=== PATIENT | male | born 1980 | race Caucasian/White ===

== ENCOUNTER 2016-07-09 08:46 | Inpatient (IN) | payer BC ==
[2016-07-09] VITALS (28 sets, daily range): BP systolic 119–153; BP diastolic 66–93; PULSE 79–114; RESP 12–30; TEMP 97.8–98.8; O2SAT 86–100
[~2016-07-09] VITALS: Ht 190.5 cm; Wt 88.1 kg
[~2016-07-09 08:46] MED LIST: ASAC800T PO; BACT800T5 PO; CEPH-460 PO; TRAM50TA PO
[2016-07-09 09:10] LABS: MEAN CORPUSCULAR HGB CONC 27.6 % (32.0-36.0)
[2016-07-09] MEDS ORDERED: SODIUM CHLORIDE 0.9% FLUSH 5 ML FLUSH IVF PRN (09:15)
[2016-07-09] MEDS ORDERED: RESP: ALBUTEROL 2.5 MG/IPRATROPIUM 0.5 MG NEB (SCH) NEB ONE (09:15)
[2016-07-09] MEDS ORDERED: methylPREDNISolone SOD SUCC 125 MG/2 ML VIAL IV PUSH ONE (09:15)
[2016-07-09] MEDS ORDERED: SODIUM CHLORID 0.9% 500 ML INJ 500 ML IV ONE (09:15)
--- NOTE | 2016-07-09 09:17 | PD ---
HPI Chief Complaint: Chest Pain Time Seen by Provider: 09:04 Travel History International Travel<30 days: No Contact w/Intl Traveler<30days: No Traveled to known affect area: No History of Present Illness HPI Patient is a 36-year-old male who presents to emergency room with complaints of chest pain. Patient reports that for the past 2 weeks, he has had increased chest congestion and pains to his chest. Patient reports that he has been having a sharp and stabbing pains to his substernal chest. Patient reports that he has not been coughing, denies any recent illness. Reports that when he takes a deep breath, reports that he feels as if he cannot take a deep breath, reports increased pain with this. Patient denies any recent travels or trips. Patient denies history of pulmonary embolism or DVT in the past. Patient with no family history of clotting disorders. Patient reports that he is a past smoker, reports that he smokes one pack per day for many years and quit smoking last year. Reports that he did see his primary care doctor last week and was started on a steroid taper, reports that he has been taking the steroids with minimal relief of symptoms. Patient reports that he feels persistently short of breath at this time reports that" hurts for me take a deep breath." Patient with no fevers or chills. Patient with no cough, positive for congestion. Patient with no nausea or vomiting or diarrhea. PFSH Past Medical History Arthritis: No Asthma: No Autoimmune Disease: No Heart Rhythm Problems: No Cancer: No Cardiovascular Problems: No High Cholesterol: No Chemotherapy: No Chest Pain: No Congestive Heart Failure: No COPD: No Cerebrovascular Accident: No Diabetes: No Diminished Hearing: No Endocrine: No Gastrointestinal Disorders: Yes (ulcerative colitis) GERD: No Genitourinary: No Hiatal Hernia: No Immune Disorder: No Implanted Vascular Access Dvce: No Kidney Stones: No Musculoskeletal: No Neurologic: No Psychiatric: No Reproductive: No Respiratory: No Migraines: No Radiation Therapy: No Renal Failure: No Seizures: No Sickle Cell Disease: No Sleep Apnea: No Thyroid Disease: No Ulcer: Yes Past Surgical History Abdominal Surgery: No AICD: No Arteriovenous Shunt: No Cardiac Surgery: No Ear Surgery: No Endocrine Surgery: No Eye Surgery: No Genitourinary Surgery: No Gynecologic Surgery: No Insulin Pump: No Joint Replacement: No Oral Surgery: No Pacemaker: No Thoracic Surgery: No Other Surgery: Yes (RIGHT ANKLE) Social History Alcohol Use: No Tobacco Use: No Substance Use: No (HISTORY OF MARIJUANA, DENIES CURRENT USE ) Allergies-Medications (Allergen,Severity, Reaction): Coded Allergies: No Known Allergies (Unverified , 07/09/16) Reported Meds & Prescriptions Reported Meds & Active Scripts Active Reported Asacol HD (Mesalamine) 800 Mg Tab 800 Mg PO BID Swallow whole. Take on an empty stomach. Review of Systems General / Constitutional: No: Fever, Chills Eyes: No: Visual changes HENT: No: Headaches Cardiovascular: No: Chest Pain or Discomfort Respiratory: Positive: Shortness of Breath, No: Cough, Wheezing Gastrointestinal: No: Nausea, Vomiting, Diarrhea, Abdominal Pain Genitourinary: No: Dysuria Musculoskeletal: No: Pain Skin: No Rash Neurologic: No: Weakness Psychiatric: No: Depression Endocrine: No: Polydipsia Hematologic/Lymphatic: No: Easy Bruising Physical Exam Narrative GENERAL: nad, nontoxic SKIN: Warm and dry. Pale appearing HEAD: Atraumatic. Normocephalic. EYES: PNo injection or drainage. ENT: No nasal bleeding or discharge. Mucous membranes pink and moist. NECK: Trachea midline. No JVD. CARDIOVASCULAR: Regular rate and rhythm. No murmur appreciated. RESPIRATORY: No accessory muscle use. Clear to auscultation. Breath sounds equal bilaterally. GASTROINTESTINAL: Abdomen soft, non-tender, nondistended. Hepatic and splenic margins not palpable. Rectal exam performed with RN at bedside: Patient with heme positive dark brown stools, no melena MUSCULOSKELETAL: No obvious deformities. No clubbing. No cyanosis. No edema. NEUROLOGICAL: Awake and alert. Motor grossly within normal limits. Normal speech. PSYCHIATRIC: Appropriate mood and affect; insight and judgment normal. Data Data Last Documented VS Vital Signs Date Time Temp Pulse Resp B/P Pulse Ox O2 Delivery O2 Flow Rate FiO2 07/09/16 11:20 16 07/09/16 11:10 85 153/86 100 Room Air 07/09/16 08:53 98.3 Orders Electrocardiogram (07/09/16 09:09) Ckmb (Isoenzyme) Profile (07/09/16 09:09) Complete Blood Count With Diff (07/09/16 09:09) Comprehensive Metabolic Panel (07/09/16 09:09) D-Dimer (07/09/16 09:09) Prothrombin Time / Inr (Pt) (07/09/16 09:09) Act Partial Throm Time (Ptt) (07/09/16 09:09) Troponin I (07/09/16 09:09) Chest, Single Ap (07/09/16 09:09) Ecg Monitoring (07/09/16 09:09) Iv Access Insert/Monitor (07/09/16 09:09) Oximetry (07/09/16 09:09) Sodium Chloride 0.9% Flush (Ns Flush) (07/09/16 09:15) Sodium Chlorid 0.9% 500 Ml Inj (Ns 500 M (07/09/16 09:15) Thyroid Stimulating Hormone (07/09/16 09:09) Methylprednisolone So Succ Inj (Solumedr (07/09/16 09:15) Albuterol-Ipratropium Neb (Duoneb Neb) (07/09/16 09:15) Type And Screen (07/09/16 09:34) Red Blood Cells (Rbc) (07/09/16 09:34) Blood Product Administration .UPON TRANSFUSION (07/09/16 09:34) Sodium Chlor 0.9% 250 Ml Inj (Ns 250 Ml (07/09/16 09:45) CKMB (07/09/16 09:10) CKMB% (07/09/16 09:10) Ct Pulmonary Angiogram (07/09/16 10:13) Iohexol 350 Inj (Omnipaque 350 Inj) (07/09/16 11:00) Morphine Inj (Morphine Inj) (07/09/16 11:15) Echo 2d Comp W/Dopp(Routine) (07/09/16 ) Consult Cardiology (07/09/16 ) Admit Order (Ed Use Only) (07/09/16 11:49) Labs Laboratory Tests Test 07/09/16 07/09/16 09:10 09:27 White Blood Count 14.5 TH/MM3 Red Blood Count 3.80 MIL/MM3 Hemoglobin 6.0 GM/DL Hematocrit 21.0 % Mean Corpuscular Volume 56.1 FL Mean Corpuscular Hemoglobin 15.5 PG Mean Corpuscular Hemoglobin 27.6 % Concent Red Cell Distribution Width 18.8 % Platelet Count 511 TH/MM3 Mean Platelet Volume 7.5 FL Neutrophils (%) (Auto) 87.9 % Lymphocytes (%) (Auto) 5.2 % Monocytes (%) (Auto) 5.6 % Eosinophils (%) (Auto) 0.5 % Basophils (%) (Auto) 0.8 % Neutrophils # (Auto) 12.7 TH/MM3 Lymphocytes # (Auto) 0.8 TH/MM3 Monocytes # (Auto) 0.8 TH/MM3 Eosinophils # (Auto) 0.1 TH/MM3 Basophils # (Auto) 0.1 TH/MM3 CBC Comment AUTO DIFF Differential Comment AUTO DIFF CONFIRMED Target Cells 2+ Ovalocytes 1+ Keratocytes 1+ Prothrombin Time 11.4 SEC Prothromb Time International 1.0 RATIO Ratio Activated Partial 30.0 SEC Thromboplast Time D-Dimer Quantitative (PE/DVT) 1.28 MG/L FEU Sodium Level 137 MEQ/L Potassium Level 3.6 MEQ/L Chloride Level 99 MEQ/L Carbon Dioxide Level 26.6 MEQ/L Anion Gap 11 MEQ/L Blood Urea Nitrogen 7 MG/DL Creatinine 0.69 MG/DL Estimat Glomerular Filtration 130 ML/MIN Rate Random Glucose 107 MG/DL Calcium Level 7.4 MG/DL Protein Corrected Calcium 7.5 MG/DL Total Bilirubin 0.4 MG/DL Aspartate Amino Transf 12 U/L (AST/SGOT) Alanine Aminotransferase 21 U/L (ALT/SGPT) Alkaline Phosphatase 81 U/L Total Creatine Kinase 150 U/L Creatine Kinase MB 1.7 NG/ML Troponin I LESS THAN 0.02 NG/ML Total Protein 7.0 GM/DL Albumin 2.6 GM/DL Thyroid Stimulating Hormone 0.791 uIU/ML 3rd Gen Blood Type B POSITIVE Antibody Screen NEGATIVE Crossmatch Leukocyte-Reduced Red Blood Cells Blood Bank Comment MDM Medical Decision Making Medical Screen Exam Complete: Yes Emergency Medical Condition: Yes Interpretation(s) EKG at 0918: NSR at 81bpm, qt/qtc: 376/412, t wave inversion V1-V2, no acute st seg changes Vital Signs Date Time Temp Pulse Resp B/P Pulse Ox O2 Delivery O2 Flow Rate FiO2 07/09/16 08:53 98.3 88 20 126/75 100 Differential Diagnosis Costochondritis, PE, pneumonia, ACS, arrhythmia, electrolyte abnormality, COPD exacerbation Narrative Course Patient is a 36-year-old male who presents to emergency room with complaints of sharp stabbing chest pain as well as shortness of breath. Symptoms began 2 weeks ago and has persisted despite being on steroids for the past week. Patient overall nontoxic on initial evaluation. Cardiac monitoring ordered, obtain CBC, BMP, EKG and x-ray of chest. Patient low risk for PE though this is in the differential, dimer ordered to r/o possible PE given that he has no risk factors for PE. Will treat patient symptomatically and will reevaluate patient. Patient's hemoglobin is 6.0. Patient with history of ulcerative colitis, he has follow-up with Dr. Hammond with GI. Patient reports no abdominal pain, reports that he has had couple episodes of diarrhea but has not had an ulcerative colitis attack. Patient reports that he has had to have a blood transfusion 2 years ago secondary to his ulcerative colitis. A rectal exam was performed, patient is heme positive from below with dark brown stools. Patient most likely anemic from GI bleed. Patient agreeable to blood transfusion at this time as he is symptomatic anemia Reviewed positive dimer with pt - understands need for ct chest to evaluate for possible pe - patient agreeable to CAT scan Review CAT scan result with radiologist, patient with significant pericardial effusion, concern for cardiac tamponde with patient's symptoms of chest pain/ sob. Patient with no clinical signs of cardiac tamponade at this time. No JVD , pt is not hypotensive. patient does not have electrical alternans, vss at this time. case reviewed with Dr. Rocha - will talk to sail repair person reading interventionist and decide whether patient can be admitted to this hospital vs [facility] case reviewed with Dr Hernadez, will see patient in consults and is agreeable to reading cardiac echo call made to IR to see if they perform pericardiocentesis at [facility] if this is clinically necessary or if patient develops pericardial tamponade. pt can be admitted to [facility] Critical Care Narrative Aggregate critical care time was 45 minutes. Time to perform other separately billable procedures was not included in the critical care time. My time did not include minutes spent treating any other patients simultaneously or on activities that did not directly contribute to the patient's treatment. The services I provided to this patient were to treat and/or prevent clinically significant deterioration that could result in: , decompensation, deterioration I provided critical care services requiring my management, as noted below: Chart data review, documentation time, medication orders and management, vital sign assessments/reviewing monitor data, ordering and reviewing lab tests, ordering and interpreting/reviewing x-rays and diagnostic studies, care of the patient and discussion of the patient with the admitting physicians. Diagnosis Primary Impression: Symptomatic anemia Additional Impression: Chest pain Qualified Code: R07.1 - Chest pain on breathing Admitting Information Admitting Physician Requests: Admit Penelope Bales DO Jul 09, 2016 09:17
[2016-07-09 09:22] LABS: AUTOMATED NEUTROPHIL # 12.7 TH/MM3 (1.8-7.7); BASOPHIL # 0.1 TH/MM3 (0-0.2); BASOPHIL % 0.8 % (0.0-2.0); EOSINOPHIL # 0.1 TH/MM3 (0-0.4); EOSINOPHIL % 0.5 % (0.0-4.0); LYMPH % 5.2 % (9.0-44.0); LYMPHOCYTE # 0.8 TH/MM3 (1.0-4.8); MEAN CELL VOLUME 56.1 FL (80.0-100.0); MEAN CORPUSCULAR HEMOGLOBIN 15.5 PG (27.0-34.0); MONO % 5.6 % (0.0-8.0); NEUT % 87.9 % (16.0-70.0); PLATELET COUNT 511 TH/MM3 (150-450); RED CELL DISTRIBUTION WIDTH 18.8 % (11.6-17.2); WHITE BLOOD COUNT 14.5 TH/MM3 (4.0-11.0)
[2016-07-09 09:24] LABS: HEMO FLAGS AUTO DIFF
[2016-07-09 09:32] LABS: PROTHROMBIN TIME - PATIENT 11.4 SEC (9.8-11.6)
--- NOTE | 2016-07-09 09:38 | RADHPO ---
EXAM DATE/TIME: 07/09/2016 09:28 [facility] COMPARISON: No previous studies available for comparison. INDICATIONS : Chest pain. Short of breath. MEDICAL HISTORY : Ulcerative colitis. Ulcers. Irritable bowel syndrome. SURGICAL HISTORY : Right ankle. ENCOUNTER: Initial ACUITY: 2 weeks PAIN SCORE: 7/10 LOCATION: substernal chest. FINDINGS: Single AP view of the chest. The lungs are clear. Mild cardiac silhouette enlargement. No evidence of pleural effusion or pneumothorax. CONCLUSION: Enlarged cardiac silhouette. No other acute cardiopulmonary disease identified. Marcin Niño MD on July 09, 2016 at 9:34 Board Certified Radiologist. This report was verified electronically.
[2016-07-09] MEDS ORDERED: SODIUM CHLOR 0.9% 250 ML INJ 250 ML IV ONE (09:45)
[2016-07-09 09:46] LABS: KERATOCYTES 1+ (NORMAL); OVALOCYTES 1+ (NORMAL); SCAN/DIFF AUTO DIFF CONFIRMED; TARGET CELLS 2+ (NORMAL)
[2016-07-09 10:05] LABS: ALKALINE PHOSPHATASE 81 U/L (45-117); ALT (GPT) 21 U/L (12-78); ANION GAP 11 MEQ/L (5-15); AST (GOT) 12 U/L (15-37); BICARBONATE 26.6 MEQ/L (21.0-32.0); BLOOD UREA NITROGEN 7 MG/DL (7-18); CALCIUM-PROTEIN CORRECTED 7.5 MG/DL (8.5-10.1); CHLORIDE 99 MEQ/L (98-107); CREATINE KINASE 150 U/L (39-308); GLOMERULAR FILTRATION RATE 130 ML/MIN (>89); POTASSIUM 3.6 MEQ/L (3.5-5.1); SODIUM (NA) 137 MEQ/L (136-145); TOTAL BILIRUBIN ADULT 0.4 MG/DL (0.2-1.0)
[2016-07-09 10:20] LABS: CKMB 1.7 NG/ML (0.5-3.6)
[2016-07-09] MEDS ORDERED: IOHEXOL 350 MG/ML 10 ML VIAL (for RAD DIAG) IV ONE (11:00)
[2016-07-09] MEDS ORDERED: MORPHINE SULFATE 4 MG/ML INJ IV PUSH ONE (11:15)
--- NOTE | 2016-07-09 11:17 | RADHPO ---
EXAM DATE/TIME: 07/09/2016 10:50 [facility] COMPARISON: No previous studies available for comparison. INDICATIONS : Chest pain x 2 weeks. Short of breath. IV CONTRAST: 75 cc Omnipaque 350 (iohexol) IV RADIATION DOSE: 14.58 CTDIvol (mGy) MEDICAL HISTORY : Irritiable bowel syndrome. SURGICAL HISTORY : None. ENCOUNTER: Initial ACUITY: 2 weeks PAIN SCALE: 5/10 LOCATION: chest TECHNIQUE: Volumetric scanning of the chest was performed using a pulmonary embolism protocol MIP images were re constructed. Using automated exposure control and adjustment of the mA and/or kV according to patien t size, radiation dose was kept as low as reasonably achievable to obtain optimal diagnostic quality images. FINDINGS: PULMONARY ARTERIES: No filling defects are seen in the pulmonary arteries through the segmental level. LUNGS: There is no consolidation or pneumothorax . Minimal streaky airspace disease is identified left base. No concerning pulmonary nodule is visualized. PLEURAE: There is no pleural thickening or pleural effusion. MEDIASTINUM: A moderate amount of pericardial fluid is identified. Heart size is otherwise normal. There is no isai dence of focal mass or lymphadenopathy. MUSCULOSKELETAL: Within normal limits for patient age. MISCELLANEOUS: The visualized upper abdominal organs demonstrate no acute abnormality. CONCLUSION: Moderate-sized pericardial effusion. Minimal left basal atelectasis. No evidence of acute pulmonary embolism. Verbal report given to treating physician in the emergency department. Kody Handy MD on July 09, 2016 at 11:09 Board Certified Radiologist. This report was verified electronically.
[2016-07-09] MEDS ORDERED: MORPHINE SULFATE 8 MG/ML INJ IV PUSH ONE (12:00)
[2016-07-09] MEDS ORDERED: BISACODYL 10 MG SUPP PR PRN (12:30)
[2016-07-09] MEDS ORDERED: ACETAMINOPHEN 325 MG TAB PO PRN (12:30)
[2016-07-09] MEDS ORDERED: NALOXONE HCL 0.4 MG/ML AMP IV PRN (12:30)
[2016-07-09] MEDS ORDERED: ONDANSETRON HCL 4 MG/2 ML VIAL IVP PRN (12:30)
[2016-07-09] MEDS ORDERED: RESP: ALBUTEROL 2.5 MG/IPRATROPIUM 0.5 MG NEB (PRN) NEB (12:30)
[2016-07-09] MEDS ORDERED: SENNOSIDES 8.6 MG TAB PO PRN (12:30)
--- NOTE | 2016-07-09 13:05 | EC ---
Study Study Date:07/09/2016 STUDY CONCLUSIONS SUMMARY - Left ventricle: The cavity size was normal. Wall thickness was normal. Systolic function was normal. The estimated ejection fraction was in the range of 55% to 60%. Wall motion was normal; there were no regional wall motion abnormalities. - Aortic valve: Valve area: 2.82cm^2 (Vmax). - Mitral valve: Mild regurgitation. - Tricuspid valve: Moderate regurgitation. - Pulmonary arteries: PA peak pressure: 32mm Hg (S). If LV function is below 40, please consider prescribing an ACEI or ARB or document rationale for non-use. PROCEDURE DATA STUDY STATUS: Elective. Procedure: Transthoracic echocardiography. Image quality was good. Scanning was performed from the parasternal, apical, and subcostal acoustic windows. Study completion: The patient tolerated the procedure well. Transthoracic echocardiography. M-mode, complete 2D, complete spectral Doppler, and color Doppler. Height: Height: 75in. Weight: Weight: 202.6lb. Body mass index: BMI: 25.4kg/m^2. Body surface area: BSA: 2.21m^2. Patient status: Inpatient. CARDIAC ANATOMY LEFT VENTRICLE: The cavity size was normal. Wall thickness was normal. Systolic function was normal. The estimated ejection fraction was in the range of 55% to 60%. Wall motion was normal; there were no regional wall motion abnormalities. AORTIC VALVE: Trileaflet; normal thickness leaflets. Doppler: Transvalvular velocity was within the normal range. There was no stenosis. No regurgitation. Valve area: 2.82cm^2 (Vmax). Indexed valve area: 1.28cm^2/m^2 (Vmax). AORTA: Aortic root: The aortic root was normal in size. MITRAL VALVE: Structurally normal valve. Doppler: Transvalvular velocity was within the normal range. There was no evidence for stenosis. Mild regurgitation. Peak gradient: 3mm Hg (D). LEFT ATRIUM: The atrium was normal in size. RIGHT VENTRICLE: The cavity size was normal. Wall thickness was normal. PULMONIC VALVE: Doppler: Transvalvular velocity was within the normal range. There was no evidence for stenosis. No regurgitation. TRICUSPID VALVE: Structurally normal valve. Doppler: Transvalvular velocity was within the normal range. Moderate regurgitation. PULMONARY ARTERY: The main pulmonary artery was normal-sized. Systolic pressure was within the normal range. RIGHT ATRIUM: The atrium was normal in size. PERICARDIUM: There is a moderate size pericardial effusion that is 1.5-2.0 cm. There is some respiratory variation, that is felt to be less then that seen with tamponade. SYSTEMIC VEINS: Inferior vena cava: The vessel was normal in size. Patient weight: 202.6lb _Ejection fraction:_ 65-75% _Fractional shortening:_ 32% up to 5Kg 5-11.5Kg 11.6-22.9Kg 23-45Kg 45-57Kg Aortic Root 7-13 <17 13-22 17-27 17-27 LA diam 6-13 <23 24-38 33-47 37-40 RVID 10-17 7-15 7-15 7-18 8-17 LVIDd 12-22 <32 24-38 33-47 37-40 LVPW 2-4 3-6 5-7 6-8 7-8 IVS 2-4 3-6 5-7 6-8 7-8 BASIC MEASUREMENTS ADULT NORMAL Left ventricle LV internal dimension, ED, chordal *63.8 mm 43-52 level, PLAX LV internal dimension, ES, chordal *46.6 mm 23-38 level, PLAX Fractional shortening, chordal level, *27 % >29 PLAX LV posterior wall thickness, ED 8.6 mm IVS/LVPW ratio, ED 1.13 <1.3 Ventricular septum Septal thickness, ED 9.75 mm Aortic valve Leaflet separation *28 mm 15-26 BASIC MEASUREMENTS ADULT NORMAL Aortic valve Leaflet separation *28 mm 15-26 Aorta Root diameter, ED 32 mm 20-37 Left atrium Anterior-posterior dimension, ES 40 mm 19-40 Anterior-posterior dimension index, ES 1.81 cm/m^2 <2.2 LA/aortic root ratio 1.25 DOPPLER MEASUREMENTS ADULT NORMAL Main pulmonary artery Pressure, S *32 mm Hg =30 Pressure, ED 13 mm Hg Aortic valve Peak velocity, S 158 cm/s Valve area, Vmax 2.82 cm^2 Valve area index, Vmax 1.28 cm^2/m^2 Mitral valve Peak E-wave velocity 86.4 cm/s Peak A-wave velocity 61.7 cm/s Deceleration time 158 ms 150-230 Peak gradient, D 3 mm Hg Peak E/A ratio 1.4 Maximal regurgitant velocity 323 cm/s Tricuspid valve Regurgitant peak velocity 268 cm/s Peak RV-RA gradient, S 29 mm Hg Maximal regurgitant velocity 268 cm/s Systemic veins Estimated CVP 10 mm Hg Right ventricle RV pressure, S *39 mm Hg <30 Pulmonic valve Peak velocity, S 132 cm/s Regurgitant velocity, ED 81.4 cm/s LEGEND: Mean values are shown as u=mean value. Asterisk (*) ron values outside specified normal range. Prepared and signed by Renetta Pat [id number]
--- NOTE | 2016-07-09 14:38 | HHI.HP ---
[facility] Service [place] Hospitalists Primary Care Physician Philip Shearer MD Admission Diagnosis symptomatic anemia, moderate sized pericardial effusion Diagnoses: (1) Chest pain Diagnosis: Principal (2) Pericardial effusion Diagnosis: Principal (3) Symptomatic anemia Diagnosis: Principal (4) Ulcerative colitis Diagnosis: Secondary Chief Complaint: Chest pain, shortness of breath Travel History International Travel<30 Days: No Contact w/Intl Traveler <30 Da: No Traveled to Known Affected Are: No History of Present Illness 36 year-old male with known history of ulcerative colitis, history of GI bleed requiring transfusions who presented to hospital because of chest pain or shortness of breath. Patient states that his pain and shortness of breath started 2 weeks ago and he went to his primary medical doctor's office and told that he had inflammation around his chest and was prescribed steroids. Patient states that that shortness of breath and pain did improve up rarely. However yesterday the pain came back severe with significant shortness of breath so he came to the hospital for evaluation. Patient had workup done in the emergency department and CT scan indicated pericardial effusion. ER physicians only had stat echocardiogram performed which also indicated moderate sized pericardial effusion. They contacted billing collections specialist who recommended pericardial effusion. ER physician then contacted hospitalist for admission so the procedures could be performed. Subsequently patient did have anemia. He has had history of anemia from ulcerative colitis. He has not taken any of his medications for at least 2 months. It has been approximate 16 months since his last transfusion. Patient has been admitted, waiting radiology for pericardial centesis Review of Systems Constitutional: DENIES: Diaphoretic episodes, Fatigue, Fever, Weight gain, Weight loss, Chills, Dizziness, Change in appetite, Night Sweats Eyes: DENIES: Blurred vision, Diplopia, Eye inflammation, Eye pain, Vision loss , Double Vision Ears, nose, mouth, throat: DENIES: Vertigo, Nasal discharge, Throat pain, Ear Pain, Running Nose, Sinus Pain Respiratory: COMPLAINS OF: Shortness of breath, DENIES: Apneas, Cough, Snoring , Wheezing, Hemoptysis, Sputum production Cardiovascular: COMPLAINS OF: Chest pain, DENIES: Palpitations, Syncope, Dyspnea on Exertion, Lower Extremity Edema, Orthopnea Gastrointestinal: DENIES: Abdominal pain, Black stools, Bloody stools, Constipation, Diarrhea, Nausea, Vomiting, Difficulty Swallowing, Anorexia Neurologic: DENIES: Abnormal gait, Headache, Localized weakness, Paresthesias, Seizures, Speech Problems, Tremor, Poor Balance Past Family Social History Past Medical History Ulcerative colitis Past Surgical History Colonoscopies Right ankle surgery Reported Medications No medications presently Allergies: Coded Allergies: No Known Allergies (Unverified , 07/09/16) Family History Reviewed is significant for father having malignant skin cancer Social History Patient quit smoking February 2016, prior to that he smoked up to a pack a cigarettes a day since he was 16 years old. Patient denies any alcohol or illicit drug Physical Exam Vital Signs Vital Signs Date Time Temp Pulse Resp B/P Pulse Ox O2 Delivery O2 Flow Rate FiO2 07/09/16 13:00 98.6 79 24 148/76 97 07/09/16 12:05 84 16 142/75 98 Room Air 07/09/16 12:05 14 07/09/16 11:20 16 07/09/16 11:10 85 18 153/86 100 Room Air 07/09/16 09:46 84 20 142/83 97 07/09/16 09:15 95 07/09/16 08:53 98.3 88 20 126/75 100 Physical Exam GENERAL: Well-developed, well-nourished, in no acute distress. alert and orientated HEENT: Head is normocephalic without any lesions or masses noted. Facial features are symmetric. Eyes: Pupils equal round reactive to light. Extraocular muscles are intact. Conjunctivae were clear. Oropharyngeal: Pharynx without any erythema edema. Tongue is midline without deviation. Buccal mucosa is moist without any masses or lesions NECK: Supple without any masses. Trachea midline no deviation. No JVD, no bruits are appreciated CARDIAC: Regular rhythm, regular rate. S1/S2 are heard. No murmurs gallops. Rub appreciated LUNGS: Clear to auscultation bilaterally. No wheeze, rhonchi or rales. No use of accessory muscles on inspiration or expiration. ABDOMEN: Soft, nontender. Nondistended. Bowel sounds heard in all 4 quadrants. No organomegaly or masses. Negative rebound, negative guarding EXTREMITIES: No edema, pulses are equal bilaterally. No cyanosis or clubbing NEUROLOGY: Mood and affect appear appropriate. Cranial nerves II through XII grossly intact. Muscle strength 5/5 in upper and lower extremities bilaterally. Deep tendon reflexes are 2+ in upper and lower extremities bilaterally. Laboratory Laboratory Tests Test 07/09/16 07/09/16 09:10 09:27 White Blood Count 14.5 Red Blood Count 3.80 Hemoglobin 6.0 Hematocrit 21.0 Mean Corpuscular Volume 56.1 Mean Corpuscular Hemoglobin 15.5 Mean Corpuscular Hemoglobin 27.6 Concent Red Cell Distribution Width 18.8 Platelet Count 511 Mean Platelet Volume 7.5 Neutrophils (%) (Auto) 87.9 Lymphocytes (%) (Auto) 5.2 Monocytes (%) (Auto) 5.6 Eosinophils (%) (Auto) 0.5 Basophils (%) (Auto) 0.8 Neutrophils # (Auto) 12.7 Lymphocytes # (Auto) 0.8 Monocytes # (Auto) 0.8 Eosinophils # (Auto) 0.1 Basophils # (Auto) 0.1 CBC Comment AUTO DIFF Differential Comment AUTO DIFF CONFIRMED Target Cells 2+ Ovalocytes 1+ Keratocytes 1+ Prothrombin Time 11.4 Prothromb Time International 1.0 Ratio Activated Partial 30.0 Thromboplast Time D-Dimer Quantitative (PE/DVT) 1.28 Sodium Level 137 Potassium Level 3.6 Chloride Level 99 Carbon Dioxide Level 26.6 Anion Gap 11 Blood Urea Nitrogen 7 Creatinine 0.69 Estimat Glomerular Filtration 130 Rate Random Glucose 107 Calcium Level 7.4 Protein Corrected Calcium 7.5 Total Bilirubin 0.4 Aspartate Amino Transf 12 (AST/SGOT) Alanine Aminotransferase 21 (ALT/SGPT) Alkaline Phosphatase 81 Total Creatine Kinase 150 Creatine Kinase MB 1.7 Troponin I LESS THAN 0.02 Total Protein 7.0 Albumin 2.6 Thyroid Stimulating Hormone 0.791 3rd Gen Blood Type B POSITIVE Antibody Screen NEGATIVE Crossmatch Leukocyte-Reduced Red Blood Cells Blood Bank Comment Result Diagram: 07/09/16 0910 07/09/[address] Angiography 07/09/16 1013 Signed Impressions: Service Date/Time: Saturday, July 09, 2016 10:50 - CONCLUSION: Moderate- sized pericardial effusion. Minimal left basal atelectasis. No evidence of acute pulmonary embolism. Verbal report given to treating physician in the emergency department. Kody Handy MD Chest X-Ray 07/09/16 0909 Signed Impressions: Service Date/Time: Saturday, July 09, 2016 09:28 - CONCLUSION: Enlarged cardiac silhouette. No other acute cardiopulmonary disease identified. Marcin Niño MD Assessment and Plan Assessment and Plan Pericardial effusion with presenting chest pain, shortness of breath, on exam pericardial friction rub CT scan does indicate moderate size pericardial effusion, echocardiogram also indicates moderate size pericardial effusion Radiology consulted for pericardial centesis Studies have been requested Continue pain control Anemia with history of ulcerative colitis Transfuse to maintain hemoglobin greater than 8.0 Dr. Hammond consulted for further recommendations DVT prevention Sequential compression devices, avoid chemical prophylaxis secondary to acute anemia Written by Mahendra Ruiz PA-C, acting as scribe for Dr. Rocha on 07/09/16 at 1410. The documentation accurately reflects the work and decisions performed face-to- face by Dr. Rocha on 07/09/16 at 1410. Physician Certification 2 Midnight Certification Type: Admission for Inpatient Services Order for Inpatient Services The services are ordered in accordance with Medicare regulations or non- Medicare payer requirements, as applicable. In the case of services not specified as inpatient-only, they are appropriately provided as inpatient services in accordance with the 2-midnight benchmark. Estimated LOS (days): 4 4 days is the estimated time the patient will need to remain in the hospital, assuming treatment plan goals are met and no additional complications. Post-Hospital Plan: Home Problem Qualifiers (1) Chest pain: Qualified Code: R07.1 - Chest pain on breathing (2) Ulcerative colitis: Qualified Code: K51.919 - Ulcerative colitis with complication, unspecified location Mahendra Ruiz Jul 09, 2016 14:37 Candi Rocha MD Jul 10, 2016 12:46
[2016-07-09] MEDS ORDERED: fentaNYL CITRATE 250 MCG/5 ML AMP IV ONE (15:15)
[2016-07-09] MEDS ORDERED: LORazepam 2 MG/ML VIAL IV ONE (15:15)
[2016-07-09 15:19] LABS: CREATINE KINASE 97 U/L (39-308)
--- NOTE | 2016-07-09 16:03 | PD.RAD ---
Post Procedure Progress Note Pre Procedure Diagnosis: (1) Pericardial effusion Post Procedure Diagnosis: (1) Pericardial effusion Procedure Date: Jul 09, 2016 Supervising Radiologist: Tre Resendiz Proceduralist/Assist: Other Anesthesia: Analgesia Plan of Activity Patient to Unit: Nursing Unit Patient Condition: Good See PACS Report for procedural detail/treatment Drainage Procedure Procedure 1 Imaging Guidance: CT Procedure Type: Abscess Drainage (pericardium) Procedure: Placement Drainage: Suction Fluid Description: Bloody Tre Resendiz MD Jul 09, 2016 16:03
[2016-07-09] MEDS ORDERED: LIDOCAINE 1%/EPINEPHrine 1:100,000 SOLN 30 ML VIAL OTHER ONE (16:44)
[2016-07-09 17:03] LABS: PERICARDIAL FLUID SP GRAVITY 1.034
[2016-07-09 17:12] LABS: PERICARDIAL LYMPHS 3 %; PERICARDIAL POLYS(SEGS) 97 %; PERICARDIAL RBC 49000 /MM3 (0-0); PERICARDIAL WBC 24500 /MM3 (0-10)
--- NOTE | 2016-07-09 17:46 | RADHPO ---
EXAM DATE/TIME: 07/09/2016 15:23 [facility] COMPARISON: No previous studies available for comparison. INDICATIONS : Pericardial effusion. SEDATION TIME: minutes MEDICATION(S): 1.) 4 mg lorazepam (Ativan) IV 2.) 250 mcg fentanyl (Sublimaze) IV DEVICE(S): 1.) 8 Fr Skater 2.) micropuncture introducer 3.) Recio FLUID: Total volume of 250 cc of clear, red fluid was removed. Fluid was sent for laboratory ordered studies. MEDICAL HISTORY : Inflammatory bowel disease. SURGICAL HISTORY : None. ENCOUNTER: Initial ACUITY: 2 weeks PAIN SCORE: 6/10 LOCATION: chest PROCEDURE: 2.) EKG and oximetry remained stable throughout the procedure. PROCEDURE : CT guided pericardiocentesis. The risks, benefits and alternatives to the procedure were explained and verbal and written consent w as obtained. The site was prepped in sterile fashion. Full sterile technique was used, including ca p, mask, sterile gloves and gown and a large sterile sheet. Hand hygiene and 2% chlorhexidine and/or betadine/alcohol prep was utilized per protocol for cutaneous antisepsis. The skin and subcutaneous tissues were infiltrated with local anesthetic solution. A micropuncture set was used to gain access and serial dilatation was performed for placement of the prescribed catheter. 250 cc of bloody fluid was removed and specimen sent the lab for evaluation. Pos t procedure images demonstrated no significant residual effusion. CONCLUSION: Uncomplicated CT-guided pericardiocentesis as above. Tre Resendiz MD on July 09, 2016 at 17:43 Board Certified Radiologist. This report was verified electronically.
[2016-07-09] MEDS ORDERED: ACETAMINOPHEN/HYDROcodone 325 MG/5 MG TAB PO PRN (18:45)
[2016-07-09] MEDS: ACETAMINOPHEN/HYDROcodone 325 MG/5 MG TAB PO PRN (20:14)
[2016-07-09] MEDS: SODIUM CHLORIDE 0.9% FLUSH 5 ML FLUSH FLUSH SCH (20:14)
--- NOTE | 2016-07-09 20:27 | MB ---
cc: ECHO WARE MD DATE OF CONSULTATION 07/09/16 REASON FOR CONSULTATION Pericardial effusion. HISTORY OF PRESENT ILLNESS Mr. Britt is a 36-year-old man you does have a history of ulcerative colitis. He reports that approximately two weeks ago he was seen by his primary care doctor for shortness of breath and some chest discomfort. He was given some steroids. He reports that over the next several days things did begin to improve. Yesterday, however, the pain came back and was quite severe so he came to the emergency room for further evaluation. Subsequent CT did reveal a pericardial effusion and cardiology was subsequently consulted. PAST MEDICAL HISTORY 1. Ulcerative colitis 2. Right ankle surgery. FAMILY HISTORY Significant for skin cancer. SOCIAL HISTORY The patient is a former smoker. REVIEW OF SYSTEMS Except as mentioned in the HPI all 12 systems are negative. MEDICATIONS Outpatient currently include the asacol. PHYSICAL EXAMINATION VITAL SIGNS: 99, 19, 137/72. GENERAL: He is a well-appearing man in no apparent distress. NECK: Free from jugular venous distention. LUNGS: Bilaterally clear to auscultation. CARDIOVASCULAR: She has a normal S1 and S2. I did not appreciated any murmurs, rubs or gallops. The pericardial drain is still in place. ABDOMEN: Soft. EXTREMITIES: Free of edema. LABORATORY FINDINGS Significant for a hemoglobin of 6. Serial troponins are less than 0.02/less than 0.02. CARDIOLOGY STUDIES Echocardiogram shows a moderate size pericardial effusion with normal LV function. There was moderate tricuspid regurgitation. IMAGING STUDIES CT angiogram of the chest showed a moderate-sized pericardial effusion and minimal basilar atelectasis. There was no evidence for PE. Subsequent CT guided pericardiocentesis, [place] [address] [place] [address]. IMPRESSION 1. Pericardial effusion - the patient has had significant pericardial effusion that has been tapped and drained. The drain is still in place with about 100 mL in the collection reservoir. He is feeling symptomatically much better. I do agree with leaving the drain in place. Cultures are pending. In the interim, I will start him on colchicine which is the standard therapy. In light of his ulcerative colitis, I am reluctant to add any NSAIDS. Additionally, I would avoid steroids if at all possible. 2. Ulcerative colitis - this is being managed by the primary team. Anne Waterman /7:45 PM /8:09 PM
[2016-07-09] MEDS: COLCHICINE 0.6 MG TAB PO SCH (20:30)
[2016-07-09] MEDS: MESALAMINE HD 800 MG DELAYED RELEASE TAB PO SCH (20:31)
[2016-07-09 21:56] LABS: CREATINE KINASE 95 U/L (39-308)
[2016-07-09] MEDS: HYDROmorphone HCL PF 1 MG/ML VIAL IV PUSH PRN (22:22)
--- NOTE | 2016-07-09 22:57 | HHI.PR ---
Subjective Remarks C/R Surg events reviewed 36 yo male with mod /severe colitis - resistant to medical Rx, but not very compliant recently tried on Humira - ? length of treatment now c/o SOB - low Hgb, pericardial effusion Objective - Vital Signs Date Time Temp Pulse Resp B/P Pulse Ox O2 Delivery O2 Flow Rate FiO2 07/09/16 17:46 98 19 137/72 07/09/16 17:10 86 07/09/16 16:50 98.8 07/09/16 16:30 21 07/09/16 12:05 Room Air Result Diagram: 07/09/16 0910 07/09/16 0910 A/P Assessment and Plan Imp: Acute colitis - now pericardial effusion check collagen vascular work-up incr asacol trial of uceris - not on formulary transfuse Topher Hammond MD Jul 09, 2016 22:57
[2016-07-10] VITALS (18 sets, daily range): BP systolic 129–141; BP diastolic 63–83; PULSE 66–94; RESP 10–28; TEMP 97.7–98.3; O2SAT 97–99
[2016-07-10] MEDS: ACETAMINOPHEN/HYDROcodone 325 MG/5 MG TAB PO PRN ×4 (02:15→19:28)
[2016-07-10 04:10] LABS: HEMATOCRIT 24.9 % (39.0-51.0)
[2016-07-10 04:11] LABS: REVIEW FLAG FINAL
[2016-07-10] MEDS: MESALAMINE HD 800 MG DELAYED RELEASE TAB PO SCH ×3 (05:48→19:27)
[2016-07-10] MEDS: HYDROmorphone HCL PF 1 MG/ML VIAL IV PUSH PRN ×4 (05:49→20:59)
[2016-07-10 06:17] LABS: POTASSIUM 4.1 MEQ/L (3.5-5.1)
[2016-07-10 06:21] LABS: BICARBONATE 28.8 MEQ/L (21.0-32.0)
[2016-07-10] MEDS ORDERED: DIATRIZOATE MEGLUM/DIATRIZOATE SOD 9 ML CUP PO ONE (09:30)
--- NOTE | 2016-07-10 10:02 | HHI.PR ---
Subjective Remarks Patient seen and examined today with Dr. Rocha. Patient states that the pain has improved. Patient still has drain in place with minimal output this morning. Nursing staff just drain the back, documentation indicates that patient has had 350 mL's of output Objective Vitals Vital Signs Date Time Temp Pulse Resp B/P Pulse Ox O2 Delivery O2 Flow Rate FiO2 07/10/16 06:00 72 07/10/16 06:00 72 10 07/10/16 05:00 82 11 07/10/16 04:00 98.0 94 19 135/68 98 07/10/16 04:00 94 07/10/16 03:00 86 12 07/10/16 02:00 84 07/10/16 02:00 84 12 07/10/16 01:00 86 11 07/10/16 00:00 98.3 92 19 129/63 97 07/10/16 00:00 92 07/09/16 23:00 92 12 07/09/16 22:00 114 30 07/09/16 22:00 114 07/09/16 21:00 102 14 07/09/16 20:00 98.6 100 18 135/81 97 07/09/16 20:00 89 07/09/16 19:46 110 28 140/73 07/09/16 19:31 88 14 132/68 07/09/16 19:16 88 17 119/68 97 07/09/16 19:00 88 17 127/66 07/09/16 17:46 98 19 137/72 07/09/16 17:45 96 19 07/09/16 17:30 108 21 148/81 07/09/16 17:15 100 24 140/81 07/09/16 17:10 110 29 151/93 86 07/09/16 17:05 94 15 141/78 97 07/09/16 17:00 96 16 147/78 96 07/09/16 16:55 96 17 145/82 95 07/09/16 16:50 98.8 100 16 145/82 92 07/09/16 16:45 97.8 100 16 142/83 96 07/09/16 16:40 98.2 102 17 152/87 95 07/09/16 16:40 98.2 100 17 150/82 96 07/09/16 16:38 104 19 152/87 95 07/09/16 16:30 100 19 95 07/09/16 16:30 96 21 07/09/16 16:23 153/83 95 07/09/16 13:00 98.6 79 24 148/76 97 07/09/16 12:05 84 16 142/75 98 Room Air 07/09/16 12:05 14 07/09/16 11:20 16 07/09/16 11:10 85 18 153/86 100 Room Air I/O 07/09/16 07/09/16 07/09/16 07/10/16 07/10/16 07/10/16 07:00 15:00 23:00 07:00 15:00 23:00 Intake Total 500 ml 859 ml 240 ml Output Total 1350 ml 300 ml Balance 500 ml -491 ml -60 ml Intake Oral 480 ml 240 ml IV Total 500 ml Packed Cells 379 ml Output Urine Total 1000 ml 300 ml Drainage Total 350 ml # Voids 2 # Bowel Movements 0 0 Result Diagram: 07/10/16 0405 07/10/16 0536 Objective Remarks GENERAL: Well-developed, well-nourished, in no acute distress. alert and orientated HEENT: Head is normocephalic without any lesions or masses noted. Facial features are symmetric. Eyes: Extraocular muscles are intact. Conjunctivae were clear. NECK: Supple without any masses. Trachea midline no deviation. No JVD, CARDIAC: Regular rhythm, regular rate. S1/S2 are heard. No murmurs gallops or rubs. Pericardial drain in place LUNGS: Clear to auscultation bilaterally. No wheeze, rhonchi or rales. No use of accessory muscles on inspiration or expiration. ABDOMEN: Soft, nontender. Nondistended. Bowel sounds heard in all 4 quadrants. No organomegaly or masses. Negative rebound, negative guarding EXTREMITIES: No edema, pulses are equal bilaterally. No cyanosis or clubbing NEUROLOGY: Mood and affect appear appropriate. Cranial nerves II through XII grossly intact. Moving all extremities, speech is clear Urinary Catheter: No Vascular Central Line Catheter: No A/P Assessment and Plan Pericardial effusion with presenting chest pain, shortness of breath, on exam pericardial friction rub CT scan does indicate moderate size pericardial effusion, echocardiogram also indicates moderate size pericardial effusion Radiology consulted for pericardial centesis, which performed with 250 cc of clear red fluid removed, drain left in place Drain output since placement 350 cc by EMR Fluid testing thus far indicates possible exudative fluid Colchicine has been started Cardiology following with the patient Continue pain control Anemia with history of ulcerative colitis Transfuse to maintain hemoglobin greater than 8.0 Dr. Hammond consulted for further recommendations patient restarted on Asacol CT of the abdomen has been requested DVT prevention Sequential compression devices, avoid chemical prophylaxis secondary to acute anemia Written by Mahendra Ruiz PA-C, acting as scribe for Dr. Rocha on 07/10/16 at 1240. The documentation accurately reflects the work and decisions performed face-to- face by Dr. Rocha on 07/10/16 at 1240. Mahendra Ruiz Jul 10, 2016 10:02
[2016-07-10 10:04] LABS: HEMATOCRIT 24.3 % (39.0-51.0)
[2016-07-10 10:05] LABS: REVIEW FLAG FINAL
[2016-07-10] MEDS: PANTOPRAZOLE SODIUM 40 MG VIAL IV SCH (10:12)
[2016-07-10] MEDS: COLCHICINE 0.6 MG TAB PO SCH ×2 (10:13→19:27)
[2016-07-10] MEDS: SODIUM CHLORIDE 0.9% FLUSH 5 ML FLUSH FLUSH SCH ×2 (10:16→19:28)
[2016-07-10] MEDS ORDERED: IOHEXOL 350 MG/ML 10 ML VIAL (for RAD DIAG) IV ONE (13:16)
--- NOTE | 2016-07-10 13:23 | RADHPO ---
EXAM DATE/TIME: 07/10/2016 13:02 [facility] COMPARISON: CT ABDOMEN & PELVIS W CONTRAST, December 22, 2013, 22:39. INDICATIONS : Evaluate for acute colitis. IV CONTRAST: 90 cc Omnipaque 350 (iohexol) IV ORAL CONTRAST: Prescribed oral contrast ingested. RADIATION DOSE: 9.71 CTDIvol (mGy) MEDICAL HISTORY : Ulcerative colitis. SURGICAL HISTORY : drain placement ENCOUNTER: Initial ACUITY: 1 day PAIN SCALE: 0/10 LOCATION: Bilateral abdomen TECHNIQUE: Volumetric scanning of the abdomen and pelvis was performed. Using automated exposure control and ad justment of the mA and/or kV according to patient size, radiation dose was kept as low as reasonably achievable to obtain optimal diagnostic quality images. FINDINGS: LOWER LUNGS: Minimal bibasilar patchy densities. Tiny pericardial effusion. LIVER: Homogeneous density without lesion. There is no dilation of the biliary tree. No calcified gallston es. SPLEEN: Normal size without lesion. PANCREAS: Within normal limits. KIDNEYS: Normal in size and shape. There is no mass, stone or hydronephrosis. Small left renal low density. ADRENAL GLANDS: Within normal limits. VASCULAR: There is no aortic aneurysm. BOWEL/MESENTERY: There is some wall thickening of the cecum, descending colon and sigmoid colon. No perforation or abs cess.. There is no free intraperitoneal air or fluid. ABDOMINAL WALL: Within normal limits. RETROPERITONEUM: There is no lymphadenopathy. BLADDER: No wall thickening or mass. REPRODUCTIVE: Within normal limits. INGUINAL: There is no lymphadenopathy or hernia. MUSCULOSKELETAL: Within normal limits for patient age. CONCLUSION: 1. Wall thickening of the transverse, descending and sigmoid colon consistent with colitis. No perfor ation or abscess. 2. Minimal bibasilar patchy densities likely atelectasis 3. Left renal low density likely cyst. Kulwinder Boyd MD on July 10, 2016 at 13:20 Board Certified Radiologist. This report was verified electronically.
--- NOTE | 2016-07-10 13:56 | PD.CARD.PN ---
Subjective Subjective Remarks Pt reports breathing better, but pleuritic CP Objective Medications Current Medications Medications (Trade) Dose Ordered Sig/Ann-Marie Route Start Time Stop Time Status Last Admin (Protonix Inj) 40 mg DAILY IV 07/10/16 09:00 07/10/16 10:12 (NS Flush) 2 ml UNSCH PRN FLUSH 07/09/16 12:30 (NS Flush) 2 ml BID FLUSH 07/09/16 21:00 07/10/16 10:16 (Tylenol) 650 mg Q4H PRN PO 07/09/16 12:30 (Zofran Inj) 4 mg Q6H PRN IVP 07/09/16 12:30 (Narcan Inj) 0.4 mg UNSCH PRN IV 07/09/16 12:30 (Asacol Hd Dr) 1,600 mg Q8HR PO 07/09/16 22:00 07/10/16 05:48 ([place] 5-325 Mg) 1 tab Q4H PRN PO 07/09/16 18:45 ([place] 5-325 Mg) 2 tab Q4H PRN PO 07/09/16 18:45 07/10/16 10:12 (Colchicine) 0.6 mg BID PO 07/09/16 21:00 07/10/16 10:13 (Dilaudid Pf Inj) 1 mg Q4H PRN IV PUSH 07/09/16 22:15 07/10/16 11:33 Vital Signs / I&O Vital Signs Date Time Temp Pulse Resp B/P Pulse Ox O2 Delivery O2 Flow Rate FiO2 07/10/16 08:00 68 07/10/16 06:00 72 07/10/16 06:00 72 10 07/10/16 05:00 82 11 07/10/16 04:00 98.0 94 19 135/68 98 07/10/16 04:00 94 07/10/16 03:00 86 12 07/10/16 02:00 84 07/10/16 02:00 84 12 07/10/16 01:00 86 11 07/10/16 00:00 98.3 92 19 129/63 97 07/10/16 00:00 92 07/09/16 23:00 92 12 07/09/16 22:00 114 30 07/09/16 22:00 114 07/09/16 21:00 102 14 2/3/17 20:00 98.6 100 18 135/81 97 07/09/16 20:00 89 07/09/16 19:46 110 28 140/73 07/09/16 19:31 88 14 132/68 07/09/16 19:16 88 17 119/68 97 07/09/16 19:00 88 17 127/66 07/09/16 17:46 98 19 137/72 07/09/16 17:45 96 19 07/09/16 17:30 108 21 148/81 07/09/16 17:15 100 24 140/81 07/09/16 17:10 110 29 151/93 86 07/09/16 17:05 94 15 141/78 97 07/09/16 17:00 96 16 147/78 96 07/09/16 16:55 96 17 145/82 95 07/09/16 16:50 98.8 100 16 145/82 92 07/09/16 16:45 97.8 100 16 142/83 96 07/09/16 16:40 98.2 102 17 152/87 95 07/09/16 16:40 98.2 100 17 150/82 96 07/09/16 16:38 104 19 152/87 95 07/09/16 16:30 100 19 95 07/09/16 16:30 96 21 07/09/16 16:23 153/83 95 I/O 07/09/16 07/09/16 07/09/16 07/10/16 07/10/16 07/10/16 07:00 15:00 23:00 07:00 15:00 23:00 Intake Total 500 ml 859 ml 240 ml Output Total 1350 ml 300 ml Balance 500 ml -491 ml -60 ml Intake Oral 480 ml 240 ml IV Total 500 ml Packed Cells 379 ml Output Urine Total 1000 ml 300 ml Drainage Total 350 ml # Voids 2 # Bowel Movements 0 0 Physical Exam GENERAL: Well developed, well nourished. No acute distress. HEENT: Jugular venous pressure is normal. CHEST: Lungs clear to auscultation bilaterally. Unlabored respiratory effort. CARDIAC: Regular rate and rhythm without S3, S4, or murmur. ABDOMEN: Soft, nontender, no hepatosplenomegaly. Bowel sounds present. EXTREMITIES: No clubbing, cyanosis, or edema. Laboratory Laboratory Tests Test 07/09/16 07/09/16 07/09/16 07/10/16 14:30 15:55 21:03 04:05 Total Creatine Kinase 97 U/L 95 U/L Troponin I LESS THAN 0.02 LESS THAN 0.02 NG/ML NG/ML Pericardial Fluid pH 8.0 Pericardial Fluid Specific 1.034 [place] Pericardial Fluid WBC 30131 /MM3 Pericardial Fluid RBC 44498 /MM3 Pericardial Fluid Neutrophils 97 % Pericardial Fluid Lymphocytes 3 % Pericardial Fluid LDH 1500 U/L Pericardial Fluid Glucose 80 MG/DL Erythrocyte Sedimentation Rate 65 mm/hr C-Reactive Protein 11.40 MG/DL Hemoglobin 7.0 GM/DL Hematocrit 24.9 % Test 07/10/16 07/10/16 05:36 09:59 Sodium Level 141 MEQ/L Potassium Level 4.1 MEQ/L Chloride Level 106 MEQ/L Carbon Dioxide Level 28.8 MEQ/L Anion Gap 6 MEQ/L Blood Urea Nitrogen 11 MG/DL Creatinine 0.63 MG/DL Estimat Glomerular Filtration 144 ML/MIN Rate Random Glucose 117 MG/DL Calcium Level 7.6 MG/DL Hemoglobin 7.0 GM/DL Hematocrit 24.3 % Assessment and Plan Assessment and Plan 1. Pericardial effusion - the patient has had significant pericardial effusion that has been tapped and drained. 250 cc / 18 hours today Continue colchicine, consider pericardial drain if this does not slow down Cytology pending Pain- on Dilaudid, management per primary team 2. Ulcerative colitis - this is being managed by the primary team. Renetta Pat MD Jul 10, 2016 13:56
[2016-07-10 15:52] LABS: HEMATOCRIT 26.2 % (39.0-51.0)
[2016-07-10 15:58] LABS: REVIEW FLAG FINAL
[2016-07-10 21:15] LABS: MEAN CORPUSCULAR HGB CONC 27.4 % (32.0-36.0)
[2016-07-10 21:52] LABS: HEMATOCRIT 24.6 % (39.0-51.0)
[2016-07-10 21:58] LABS: REVIEW FLAG FINAL
[2016-07-11] VITALS (16 sets, daily range): BP systolic 123–143; BP diastolic 68–82; PULSE 56–114; RESP 8–23; TEMP 97–97.9; O2SAT 97–100
[2016-07-11] MEDS: ACETAMINOPHEN/HYDROcodone 325 MG/5 MG TAB PO PRN ×4 (00:34→20:17)
[2016-07-11] MEDS: MESALAMINE HD 800 MG DELAYED RELEASE TAB PO SCH ×3 (04:11→20:16)
[2016-07-11] MEDS: HYDROmorphone HCL PF 1 MG/ML VIAL IV PUSH PRN ×4 (04:14→21:32)
[2016-07-11 06:28] LABS: HEMATOCRIT 26.2 % (39.0-51.0); MEAN CELL VOLUME 58.7 FL (80.0-100.0); MEAN CORPUSCULAR HEMOGLOBIN 16.1 PG (27.0-34.0); PLATELET COUNT 575 TH/MM3 (150-450); RED BLOOD COUNT 4.46 MIL/MM3 (4.50-5.90); RED CELL DISTRIBUTION WIDTH 22.1 % (11.6-17.2); WHITE BLOOD COUNT 9.2 TH/MM3 (4.0-11.0)
[2016-07-11 06:30] LABS: HEMO FLAGS AUTO DIFF
[2016-07-11 06:35] LABS: BICARBONATE 30.8 MEQ/L (21.0-32.0); MAGNESIUM 2.5 MG/DL (1.5-2.5)
[2016-07-11 07:01] LABS: BANDS 2 % (0-6); EOSINOPHILS 2 % (0-4); NEUTROPHIL # MANUAL DIFF 6.7 TH/MM3 (1.8-7.7); POLYS (SEG NEUTROPHILS) 71 % (16-70); WBC DIFF SAMPLE 100
[2016-07-11 07:03] LABS: ACANTHOCYTES OCC (NORMAL); KERATOCYTES OCC (NORMAL); OVALOCYTES 1+ (NORMAL); PLATELET ESTIMATE SMEAR HIGH (NORMAL); PLATELET MORPHOLOGY NORMAL (NORMAL); ROULEAUX PRESENT (NORMAL); SCAN/DIFF FINAL DIFF MANUAL; TARGET CELLS 1+ (NORMAL)
[2016-07-11] MEDS: PANTOPRAZOLE SODIUM 40 MG VIAL IV SCH (08:44)
--- NOTE | 2016-07-11 10:15 | HHI.PR ---
Subjective Remarks Patient seen and examined today with Dr. Rocha. Patient still complaining of mild discomfort in the chest at the drain site. Patient indicates that there is no significant drain output overnight. Records indicate only 40s mL's. Objective Vitals Vital Signs Date Time Temp Pulse Resp B/P Pulse Ox O2 Delivery O2 Flow Rate FiO2 07/11/16 08:10 97.7 87 23 126/75 99 07/11/16 06:00 80 07/11/16 04:00 86 07/11/16 04:00 97.7 80 22 131/76 97 07/11/16 03:00 60 8 07/11/16 02:00 58 07/11/16 02:00 58 15 07/11/16 01:00 62 11 07/11/16 00:00 70 07/11/16 00:00 97.0 70 12 126/68 97 07/10/16 23:00 68 11 07/10/16 22:00 72 07/10/16 22:00 72 17 07/10/16 21:00 74 15 07/10/16 20:00 75 07/10/16 20:00 97.8 74 28 139/74 98 07/10/16 19:00 88 23 07/10/16 18:00 72 07/10/16 16:00 97.7 68 16 141/75 98 07/10/16 14:00 66 07/10/16 12:00 98.0 66 14 134/83 99 07/10/16 12:00 70 I/O 07/10/16 07/10/16 07/10/16 07/11/16 07/11/16 07/11/16 07:00 15:00 23:00 07:00 15:00 23:00 Intake Total 240 ml 240 ml 240 ml 480 ml Output Total 300 ml 40 ml 0 ml 0 ml Balance -60 ml 200 ml 240 ml 480 ml Intake Oral 240 ml 240 ml 240 ml 480 ml IV Total 0 ml Output Urine Total 300 ml Drainage Total 40 ml 0 ml 0 ml # Voids 2 1 2 # Bowel Movements 0 1 0 1 Result Diagram: 07/11/1633 07/11/16 05 Objective Remarks GENERAL: Well-developed, well-nourished, in no acute distress. alert and orientated HEENT: Head is normocephalic without any lesions or masses noted. Facial features are symmetric. Eyes: Extraocular muscles are intact. Conjunctivae were clear. NECK: Supple without any masses. Trachea midline no deviation. No JVD, CARDIAC: Regular rhythm, regular rate. S1/S2 are heard. No murmurs gallops or rubs. Pericardial drain in place LUNGS: Clear to auscultation bilaterally. No wheeze, rhonchi or rales. No use of accessory muscles on inspiration or expiration. ABDOMEN: Soft, nontender. Nondistended. Bowel sounds heard in all 4 quadrants. No organomegaly or masses. Negative rebound, negative guarding EXTREMITIES: No edema, pulses are equal bilaterally. No cyanosis or clubbing NEUROLOGY: Mood and affect appear appropriate. Cranial nerves II through XII grossly intact. Moving all extremities, speech is clear Urinary Catheter: No Vascular Central Line Catheter: No A/P Assessment and Plan Pericardial effusion with presenting chest pain, shortness of breath, on exam pericardial friction rub CT scan does indicate moderate size pericardial effusion, echocardiogram also indicates moderate size pericardial effusion Radiology consulted for pericardial centesis, which performed with 250 cc of clear red fluid removed, drain left in place Drain output overnight was 40 cc by EMR Fluid testing thus far indicates possible exudative fluid Colchicine has been started Cardiology following with the patient Continue pain control Discuss case with viticulture teacher today. Dr. Pat contacted radiology who indicated that the pericardial drain should have less than 10 cc of output prior to removal. Anticipate removal tomorrow since significant decline in drain output. Anemia with history of ulcerative colitis Transfuse to maintain hemoglobin greater than 8.0 Dr. Hammond consulted for further recommendations patient restarted on Asacol CT of the abdomen indicates wall thickening in the transverse, descending and sigmoid colon consistent with colitis. DVT prevention Sequential compression devices, avoid chemical prophylaxis secondary to acute anemia Written by Mahendra Ruiz PA-C, acting as scribe for Dr. Rocha on 07/11/16 at 1340. The documentation accurately reflects the work and decisions performed face-to- face by Dr. Rocha on 07/11/16 at 1340. Mahendra Ruiz Jul 11, 2016 10:15
[2016-07-11] MEDS: COLCHICINE 0.6 MG TAB PO SCH ×2 (12:13→20:16)
[2016-07-11] MEDS: SODIUM CHLORIDE 0.9% FLUSH 5 ML FLUSH FLUSH SCH ×2 (12:14→20:17)
--- NOTE | 2016-07-11 13:18 | EKG ---
Date Performed: 07/09/2016 Time Performed: 21:01:12 PTAGE: 36 years EKG: Sinus tachycardia. Since PREVIOUS TRACING , no significant change noted Normal ECG except for rate PREVIOUS TRACIN 07/09/2016 16.33 DOCTOR: Eligio Armijo Interpretating Date/Time 07/11/2016 13:17:53
--- NOTE | 2016-07-11 13:19 | EKG ---
Date Performed: 07/09/2016 Time Performed: 09:18:08 PTAGE: 36 years EKG: Sinus rhythm Septal T wave changes are nonspecific Since previous tracing, no significant change noted Borderline ECG PREVIOUS TRACING : 05/31/2011 11.43 DOCTOR: Eligio Armijo Interpretating Date/Time 07/11/2016 13:18:24
--- NOTE | 2016-07-11 13:19 | EKG ---
Date Performed: 07/09/2016 Time Performed: 16:33:58 PTAGE: 36 years EKG: Sinus tachycardia. Since PREVIOUS TRACING , no significant change noted Normal ECG except for rate PREVIOUS TRACIN 07/09/2016 09.18 DOCTOR: Eligio Armijo Interpretating Date/Time 07/11/2016 13:18:08
[2016-07-11] MEDS: SODIUM CHLORIDE 0.9% FLUSH 5 ML FLUSH FLUSH PRN (21:32)
[2016-07-12] VITALS (8 sets, daily range): BP systolic 110–143; BP diastolic 67–79; PULSE 61–125; RESP 16–18; TEMP 97.2–97.9; O2SAT 96–98
[2016-07-12] MEDS: ACETAMINOPHEN/HYDROcodone 325 MG/5 MG TAB PO PRN ×3 (00:18→13:10)
[2016-07-12] MEDS: HYDROmorphone HCL PF 1 MG/ML VIAL IV PUSH PRN ×2 (04:35→09:22)
[2016-07-12] MEDS: MESALAMINE HD 800 MG DELAYED RELEASE TAB PO SCH ×2 (04:36→13:09)
[2016-07-12] MEDS: SODIUM CHLORIDE 0.9% FLUSH 5 ML FLUSH FLUSH PRN (04:36)
[2016-07-12] MEDS: PANTOPRAZOLE SODIUM 40 MG VIAL IV SCH (08:10)
[2016-07-12] MEDS: COLCHICINE 0.6 MG TAB PO SCH (08:10)
[2016-07-12] MEDS: SODIUM CHLORIDE 0.9% FLUSH 5 ML FLUSH FLUSH SCH (08:11)
[2016-07-12] MEDS ORDERED: COLC1TAB15 PO (10:39)
[2016-07-12] MEDS ORDERED: [UNRECOGNIZED DRUG - OTHER] PO (10:39)
--- NOTE | 2016-07-12 10:40 | HHI.DCPOC ---
Discharge Care Plan Diagnosis: (1) Pericardial effusion (2) Ulcerative colitis Goals to Promote Your Health * To prevent worsening of your condition and complications * To maintain your health at the optimal level Directions to Meet Your Goals Take your medications as prescribed Follow your dietary instruction Follow activity as directed Keep your appointments as scheduled Take your immunizations and boosters as scheduled If your symptoms worsen call your PCP, if no PCP go to Urgent Care Center or Emergency Room Smoking is Dangerous to Your Health. Avoid second hand smoke Call the 24-hour hour crisis hotline for domestic abuse at Mahendra Ruiz Jul 12, 2016 10:40
--- NOTE | 2016-07-12 10:50 | HHI.DS ---
Discharge Summary Admission Date Jul 09, 2016 at 11:51 Discharge Date: Jul 12, 2016 Admitting Diagnosis symptomatic anemia, moderate sized pericardial effusion (1) Chest pain ICD Code: R07.9 Diagnosis: Principal (2) Pericardial effusion ICD Code: I31.3 Diagnosis: Principal (3) Symptomatic anemia ICD Code: D64.9 Diagnosis: Principal (4) Ulcerative colitis ICD Code: K51.90 Diagnosis: Secondary Procedures Pericardial drain Echocardiogram with ejection fraction 55-60%. Moderate size pericardial effusion. Brief History - From Admission 36 year-old male with known history of ulcerative colitis, history of GI bleed requiring transfusions who presented to hospital because of chest pain or shortness of breath. Patient states that his pain and shortness of breath started 2 weeks ago and he went to his primary medical doctor's office and told that he had inflammation around his chest and was prescribed steroids. Patient states that that shortness of breath and pain did improve up rarely. However yesterday the pain came back severe with significant shortness of breath so he came to the hospital for evaluation. Patient had workup done in the emergency department and CT scan indicated pericardial effusion. ER physicians only had stat echocardiogram performed which also indicated moderate sized pericardial effusion. They contacted finish photographer who recommended pericardial effusion. ER physician then contacted hospitalist for admission so the procedures could be performed. Subsequently patient did have anemia. He has had history of anemia from ulcerative colitis. He has not taken any of his medications for at least 2 months. It has been approximate 16 months since his last transfusion. Patient has been admitted, waiting radiology for pericardial centesis CBC/BMP: 07/11/16 0533 07/11/16 0533 Significant Findings Laboratory Tests Test 07/09/16 07/09/16 07/09/16 07/10/16 14:30 15:55 21:03 04:05 Troponin I LESS THAN 0.02 LESS THAN 0.02 NG/ML NG/ML (0.02-0.05) (0.02-0.05) Pericardial Fluid WBC 28712 /MM3 (0-10) Pericardial Fluid RBC 75509 /MM3 (0-0) Erythrocyte Sedimentation Rate 65 mm/hr (0-15) C-Reactive Protein 11.40 MG/DL (0.00-0.30) Hemoglobin 7.0 GM/DL (13.0-17.0) Hematocrit 24.9 % (39.0-51.0) Test 07/10/16 07/10/16 07/10/16 07/10/16 05:36 09:59 15:48 21:44 Random Glucose 117 MG/DL (74-106) Calcium Level 7.6 MG/DL (8.5-10.1) Hemoglobin 7.0 GM/DL 7.3 GM/DL 7.0 GM/DL (13.0-17.0) (13.0-17.0) (13.0-17.0) Hematocrit 24.3 % 26.2 % 24.6 % (39.0-51.0) (39.0-51.0) (39.0-51.0) Test 07/11/16 05:33 Red Blood Count 4.46 MIL/MM3 (4.50-5.90) Hemoglobin 7.2 GM/DL (13.0-17.0) Hematocrit 26.2 % (39.0-51.0) Mean Corpuscular Volume 58.7 FL (80.0-100.0) Mean Corpuscular Hemoglobin 16.1 PG (27.0-34.0) Mean Corpuscular Hemoglobin 27.4 % Concent (32.0-36.0) Red Cell Distribution Width 22.1 % (11.6-17.2) Platelet Count 575 TH/MM3 (150-450) Neutrophils % (Manual) 71 % (16-70) Platelet Estimate HIGH (NORMAL) Target Cells 1+ (NORMAL) Ovalocytes 1+ (NORMAL) Rouleau PRESENT (NORMAL) Calcium Level 7.9 MG/DL (8.5-10.1) Imaging Last Impressions CT Angiography 07/09/16 1013 Signed Impressions: Service Date/Time: Saturday, July 09, 2016 10:50 - CONCLUSION: Moderate- sized pericardial effusion. Minimal left basal atelectasis. No evidence of acute pulmonary embolism. Verbal report given to treating physician in the emergency department. Kody Handy MD Chest X-Ray 07/09/16 0909 Signed Impressions: Service Date/Time: Saturday, July 09, 2016 09:28 - CONCLUSION: Enlarged cardiac silhouette. No other acute cardiopulmonary disease identified. Marcin Niño MD Pericardiocentesis 07/09/16 0000 Signed Impressions: Service Date/Time: Saturday, July 09, 2016 15:23 - CONCLUSION: Uncomplicated CT-guided pericardiocentesis as above. Tre Resendiz MD Abdomen/Pelvis CT 07/09/16 0000 Signed Impressions: Service Date/Time: Sunday, July 10, 2016 13:02 - CONCLUSION: 1. Wall thickening of the transverse, descending and sigmoid colon consistent with colitis. No perforation or abscess. 2. Minimal bibasilar patchy densities likely atelectasis 3. Left renal low density likely cyst. Kulwinder Boyd MD PE at Discharge GENERAL: Well-developed, well-nourished, in no acute distress. alert and orientated HEENT: Head is normocephalic without any lesions or masses noted. Facial features are symmetric. Eyes: Extraocular muscles are intact. Conjunctivae were clear. NECK: Supple without any masses. Trachea midline no deviation. No JVD, CARDIAC: Regular rhythm, regular rate. S1/S2 are heard. No murmurs gallops or rubs. Pericardial drain in place LUNGS: Clear to auscultation bilaterally. No wheeze, rhonchi or rales. No use of accessory muscles on inspiration or expiration. ABDOMEN: Soft, nontender. Nondistended. Bowel sounds heard in all 4 quadrants. No organomegaly or masses. Negative rebound, negative guarding EXTREMITIES: No edema, pulses are equal bilaterally. No cyanosis or clubbing NEUROLOGY: Mood and affect appear appropriate. Cranial nerves II through XII grossly intact. Moving all extremities, speech is clear Hospital Course 36 year-old male who originally presented to hospital because of shortness of breath and dyspnea patient found to have moderate size pericardial effusion. Cardiology was consulted. Patient went to interventional radiology and had a pericardial drain placed. Patient had initial 250 cc out on insertion. Patient was started on colchicine 0.6 mg twice daily. Drain was monitored daily and over the course of next 3 days patient had outputs to include 140, 40, 5. Patient's pain is much improved. His only complaining of pain localized at the area of insertion of a drain. Radiology will be removing drain today. Cardiology is following the patient. Patient also has history of ulcerative colitis, untreated. Dr. Hammond was consulted and evaluated the patient the hospital and resumed Asacol. Patient did have anemia which required transfusion of packed red blood cells. Patient clinically stable this time. Patient instructed follow-up with his primary medical doctor, finish photographer, colorectal specialist upon discharge. Will plan discharge after drain removed. Pt Condition on Discharge: Stable Discharge Disposition: Discharge Home Discharge Time: > 30 minutes Discharge Instructions DIET: Follow Instructions for: As Tolerated, No Restrictions Activities you can perform: Regular-No Restrictions Activities to Avoid: Driving for 24 hrs Follow up Referrals: Cardiology - [address] Pat Colorectal Surgery - 2 Weeks with Topher Hammond MD PCP Follow-up - 1 Week New Medications: Colchicine (Colchicine) 0.6 Mg Tab 0.6 MG PO BID pericarditis, pericardial effu Days 30 TAB ([Mesalamine Hd Dr]) 800 MG TABDR 1600 MG PO Q8HR ulcerative colitis Days 30 TAB.DR Discontinued Medications: Mesalamine DR (Asacol HD) 800 Mg Tab 800 MG PO BID Swallow whole. Take on an empty stomach. Ulcerative colitis Ref 0 TAB Additional Information Written by Mahendra Ruiz PA-C, acting as scribe for Dr. Rocha on 07/12/16 at 10:30. The documentation accurately reflects the work and decisions performed face-to- face by Dr. Rocha on 07/12/16 at 10:30. Mahendra Ruiz Jul 12, 2016 10:50
--- NOTE | 2016-07-12 12:26 | PD.CARD.PN ---
Subjective Subjective Remarks Pt reports feeling better, but is aware drain still present Objective Medications Current Medications Medications (Trade) Dose Ordered Sig/Ann-Marie Route Start Time Stop Time Status Last Admin (Protonix Inj) 40 mg DAILY IV 07/10/16 09:00 07/12/16 08:10 (NS Flush) 2 ml UNSCH PRN FLUSH 07/09/16 12:30 07/12/16 04:36 (NS Flush) 2 ml BID FLUSH 07/09/16 21:00 07/12/16 08:11 (Tylenol) 650 mg Q4H PRN PO 07/09/16 12:30 (Zofran Inj) 4 mg Q6H PRN IVP 07/09/16 12:30 (Narcan Inj) 0.4 mg UNSCH PRN IV 07/09/16 12:30 (Asacol Hd Dr) 1,600 mg Q8HR PO 07/09/16 22:00 07/12/16 04:36 ([place] 5-325 Mg) 1 tab Q4H PRN PO 07/09/16 18:45 ([place] 5-325 Mg) 2 tab Q4H PRN PO 07/09/16 18:45 07/12/16 08:10 (Colchicine) 0.6 mg BID PO 07/09/16 21:00 07/12/16 08:10 (Dilaudid Pf Inj) 1 mg Q4H PRN IV PUSH 07/09/16 22:15 07/12/16 09:22 Vital Signs / I&O Vital Signs Date Time Temp Pulse Resp B/P Pulse Ox O2 Delivery O2 Flow Rate FiO2 07/12/16 08:43 97.2 78 18 128/76 97 07/12/16 08:00 96 21 07/12/16 06:00 68 07/12/16 04:00 66 07/12/16 04:00 97.9 70 16 138/79 98 07/12/16 02:00 61 07/12/16 00:00 80 07/12/16 00:00 97.3 69 18 143/76 98 07/11/16 22:00 114 07/11/16 21:29 97.3 78 18 137/82 98 07/11/16 20:20 97 21 07/11/16 20:00 97.9 80 13 124/79 98 07/11/16 20:00 84 07/11/16 16:00 97.8 81 20 143/70 100 07/11/16 16:00 60 07/11/16 14:00 66 I/O 07/11/16 07/11/16 07/11/16 07/12/16 07/12/16 07/12/16 07:00 15:00 23:00 07:00 15:00 23:00 Intake Total 480 ml Output Total 0 ml 5 ml Balance 480 ml -5 ml Intake Oral 480 ml Drainage Total 0 ml 5 ml # Voids 2 # Bowel Movements 1 Physical Exam GENERAL: Well developed, well nourished. No acute distress. HEENT: Jugular venous pressure is normal. CHEST: Lungs clear to auscultation bilaterally. Unlabored respiratory effort. CARDIAC: Regular rate and rhythm without S3, S4, or murmur. ABDOMEN: Soft, nontender, no hepatosplenomegaly. Bowel sounds present. EXTREMITIES: No clubbing, cyanosis, or edema. Assessment and Plan Assessment and Plan 1. Pericardial effusion - the patient has had significant pericardial effusion that has been tapped and drained. Output <10cc/24 hours=> remove drain Continue colchicine-3 months, NSAIDS relatively contraindicated with UC and bloody effusion Cytology negative, cultures negative follow up in 7-10 days Pain- management per primary team 2. Ulcerative colitis - this is being managed by the primary team. Renetta Pat MD Jul 12, 2016 12:26
[2016-07-12 15:14] LABS: RAPID PLASMA REAGIN SCREEN NON-REACTIVE (NON-REACTVE)
[2016-07-12 15:19] LABS: ANA SCREEN NEG (NEG)
--- NOTE | 2016-07-12 16:25 | PD.RAD ---
Post Procedure Progress Note Pre Procedure Diagnosis: (1) Pericardial effusion Post Procedure Diagnosis: (1) Pericardial effusion Procedure Date: Jul 12, 2016 Supervising Radiologist: Kody Handy Plan of Activity Patient to Unit: Nursing Unit Patient Condition: Good See PACS Report for procedural detail/treatment Drainage Procedure Procedure 1 Procedure: Removal Findings: Pericardial drain removed without complication. Kody Handy MD Jul 12, 2016 16:25
[2016-07-12 16:32] LABS: TRANSFERRIN IRON PROFILE 279 MG/DL (200-360)
--- NOTE | 2016-07-21 08:33 | PQ ---
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 Please specify the cause (includes suspected or probable cause) Such as: -- Due to acute blood loss -- Due to chronic blood loss -- Due to iron deficiency -- Due to postoperative blood loss -- Due to chronic disease -- Other, please specify The patient's Clinical Indicators include: Fr. ROCHA, Progress Note on 07-11-16 documents "avoid chemical proplalaxis secondary to acute anemia" . Matias's H/H oon admission was 6.0/21.0 and 1 unit of rbc was transfused. Please review the question below and answer to the best of your ability. THANK YOU Query created by: Nathan Rodriguez on 07/16/2016 12:15 PM RESPONSE TEXT: [email or web address] Electronically signed by: Candi Rocha MD 07/21/2016 8:29 AM
== END 2016-07-12 17:50 | disposition home or self-care (01) | DRG 315 ==
LOC: PHED 08:46 → PHEDA 11:51 → UNDOADMIN 11:51 → PHEDA 13:00 → PHICU 13:00 → PH3B 07-11 21:05 → PHICU 07-11 21:05 → UNDODISIN 07-12 17:50
PROVIDERS: ADMIT Family Medicine; ATTEND Family Medicine
PROC: 30233N1 Transfusion of Nonautologous Red Blood Cells into Peripheral Vein, Percutaneous Approach (ICD-10-PCS; principal; 2016-07-09)
PROC: 0W9D30Z Drainage of Pericardial Cavity with Drainage Device, Percutaneous Approach (ICD-10-PCS; 2016-07-09)
PROC: 0WPDX0Z Removal of Drainage Device from Pericardial Cavity, External Approach (ICD-10-PCS; 2016-07-12)
DX: I31.3 Pericardial effusion (noninflammatory) (principal); K51.919 Ulcerative colitis, unspecified with unspecified complications; Z87.891 Personal history of nicotine dependence; D64.9 Anemia, unspecified
CPT/HCPCS: 33010; 36430; 71010; 71275; 74177; 77012; 80048; 80053; 82550; 82552; 82945; 83540; 83550; 83615; 83735; 83986; 84315; 84443; 84484; 85007; 85014; 85018; 85025; 85027; 85379; 85610; 85652; 85730; 86038; 86140; 86592; 86850; 86900; 86901; 86920; 87015; 87070; 87102; 87116; 87205; 87206; 89051; 93005; 93306; 94664; 96361; 96374; 96375; C1729; C1769; C9113; J1170; J2060; J2270; J2930; J3010; J7040; J7050; P9016; Q9963; Q9967

== ENCOUNTER 2016-11-30 09:34 | Emergency (ER) | payer BC ==
[~2016-11-30] VITALS: Ht 190.5 cm; Wt 93.0 kg
[~2016-11-30 09:34] MED LIST changes: -ASAC800T PO; -BACT800T5 PO; -CEPH-460 PO; +COLC1TAB15 PO; -TRAM50TA PO; +[UNRECOGNIZED DRUG - OTHER] PO
[2016-11-30 09:38] VITALS: BP 128/77; PULSE 82; RESP 16; TEMP 97.6; O2SAT 100
[2016-11-30] MEDS ORDERED: ASAC800T PO (09:47)
[2016-11-30 10:00] LABS: MEAN CORPUSCULAR HGB CONC 29.7 % (32.0-36.0)
--- NOTE | 2016-11-30 10:03 | PD ---
HPI Chief Complaint: Pain: Acute or Chronic Time Seen by Provider: 09:43 Travel History International Travel<30 days: No Contact w/Intl Traveler<30days: No Traveled to known affect area: No History of Present Illness HPI This patient complains of the abrupt onset of right flank pain. Severity of pain is moderate. There are no alleviating factors. There is no injury or fever or urinary complaints. Duration 3 days. This patient has chronic colitis and chronic GI bleed. He did not have any bleeding today but occasionally has bleeding. He follows with Dr. Hammond and takes Asacol. He is chronically anemic with a baseline hemoglobin of 7. PFSH Past Medical History Arthritis: No Asthma: No Autoimmune Disease: No Heart Rhythm Problems: No Cancer: No Cardiovascular Problems: No High Cholesterol: No Chemotherapy: No Chest Pain: No Congestive Heart Failure: No COPD: No Cerebrovascular Accident: No Diabetes: No Diminished Hearing: No Endocrine: No Gastrointestinal Disorders: Yes (ulcerative colitis) GERD: No Genitourinary: No Hiatal Hernia: No Immune Disorder: No Implanted Vascular Access Dvce: No Kidney Stones: No Musculoskeletal: No Neurologic: No Psychiatric: No Reproductive: No Respiratory: No Migraines: No Radiation Therapy: No Renal Failure: No Seizures: No Sickle Cell Disease: No Sleep Apnea: No Thyroid Disease: No Ulcer: Yes Past Surgical History Abdominal Surgery: No AICD: No Arteriovenous Shunt: No Cardiac Surgery: No Ear Surgery: No Endocrine Surgery: No Eye Surgery: No Genitourinary Surgery: No Gynecologic Surgery: No Insulin Pump: No Joint Replacement: No Oral Surgery: No Pacemaker: No Thoracic Surgery: No Other Surgery: Yes (RIGHT ANKLE) Social History Alcohol Use: Yes (FEW TIMES WEEKLY) Tobacco Use: No Substance Use: No (HISTORY OF MARIJUANA, DENIES CURRENT USE ) Allergies-Medications (Allergen,Severity, Reaction): Coded Allergies: No Known Allergies (Unverified , 11/30/16) Reported Meds & Prescriptions Reported Meds & Active Scripts Active Reported Asacol HD (Mesalamine) 800 Mg Tab 2,400 Mg PO BID Swallow whole. Take on an empty stomach. Review of Systems General / Constitutional: No: Fever Eyes: No: Visual changes HENT: No: Headaches Cardiovascular: No: Chest Pain or Discomfort Respiratory: No: Shortness of Breath Gastrointestinal: Positive: Hematochezia, No: Abdominal Pain Genitourinary: Positive: Flank Pain, No: Dysuria Musculoskeletal: Positive: Pain Skin: No Rash Neurologic: No: Weakness Psychiatric: No: Depression Endocrine: No: Polydipsia Hematologic/Lymphatic: No: Easy Bruising Physical Exam Narrative GENERAL: Well-nourished, well-developed patient with right flank pain. SKIN: Focused skin assessment reveals no rash and nodules. Skin is Warm and dry. His skin is pale HEAD: Atraumatic. Normocephalic. EYES: Pupils equal and round. No scleral icterus. No injection or drainage. ENT: No nasal bleeding or discharge. Mucous membranes pink and moist. NECK: Trachea midline. No JVD. CARDIOVASCULAR: Regular rate and rhythm. No murmur appreciated. RESPIRATORY: No accessory muscle use. Clear to auscultation. Breath sounds equal bilaterally. GASTROINTESTINAL: Abdomen soft, non-tender, nondistended. Hepatic and splenic margins not palpable. MUSCULOSKELETAL: No obvious deformities. No clubbing. No cyanosis. No edema. NEUROLOGICAL: Awake and alert. No obvious cranial nerve deficits. Motor grossly within normal limits. Normal speech. PSYCHIATRIC: Appropriate mood and affect; insight and judgment normal. Data Data Last Documented VS Vital Signs Date Time Temp Pulse Resp B/P Pulse Ox O2 Delivery O2 Flow Rate FiO2 11/30/16 11:12 69 20 140/78 99 11/30/16 09:38 97.6 Orders Iv Access Insert/Monitor (11/30/16 09:58) Complete Blood Count With Diff (11/30/16 09:58) Basic Metabolic Panel (Bmp) (11/30/16 09:58) Prothrombin Time / Inr (Pt) (11/30/16 09:58) Act Partial Throm Time (Ptt) (11/30/16 09:58) Ct Abd/Pel W/O Iv Contrast (11/30/16 ) Ondansetron Inj (Zofran Inj) (11/30/16 10:15) Morphine Inj (Morphine Inj) (11/30/16 10:15) Morphine Inj (Morphine Inj) (11/30/16 10:30) Labs Laboratory Tests Test 11/30/16 10:10 White Blood Count 8.6 TH/MM3 Red Blood Count 5.04 MIL/MM3 Hemoglobin 8.8 GM/DL Hematocrit 29.6 % Mean Corpuscular Volume 58.7 FL Mean Corpuscular Hemoglobin 17.4 PG Mean Corpuscular Hemoglobin 29.7 % Concent Red Cell Distribution Width 18.1 % Platelet Count 416 TH/MM3 Mean Platelet Volume 7.6 FL Neutrophils (%) (Auto) 77.0 % Lymphocytes (%) (Auto) 13.4 % Monocytes (%) (Auto) 7.3 % Eosinophils (%) (Auto) 1.5 % Basophils (%) (Auto) 0.8 % Neutrophils # (Auto) 6.7 TH/MM3 Lymphocytes # (Auto) 1.1 TH/MM3 Monocytes # (Auto) 0.6 TH/MM3 Eosinophils # (Auto) 0.1 TH/MM3 Basophils # (Auto) 0.1 TH/MM3 CBC Comment AUTO DIFF Differential Comment AUTO DIFF CONFIRMED Ovalocytes 1+ Rouleau PRESENT Prothrombin Time 10.8 SEC Prothromb Time International 1.0 RATIO Ratio Activated Partial 26.7 SEC Thromboplast Time Sodium Level 138 MEQ/L Potassium Level 3.9 MEQ/L Chloride Level 104 MEQ/L Carbon Dioxide Level 26.0 MEQ/L Anion Gap 8 MEQ/L Blood Urea Nitrogen 7 MG/DL Creatinine 0.80 MG/DL Estimat Glomerular Filtration 109 ML/MIN Rate Random Glucose 147 MG/DL Calcium Level 8.3 MG/DL MDM Medical Decision Making Medical Screen Exam Complete: Yes Emergency Medical Condition: Yes Medical Record Reviewed: Yes Differential Diagnosis Kidney stone, sciatica, anemia, colitis Narrative Course I have reviewed the patient's electronic medical record. I reviewed his July 2016 admission when he had a hemoglobin of 6 and was transfused IV placed CBC shows hemoglobin of 8.8 which is good for him Metabolic profile is normal Coagulation studies are normal CT of abdomen and pelvis shows no right sided stone to explain his pain. There is thickened: As expected in a pinpoint left-sided nonobstructing stone which is an incidental finding I gave him a dose of IV morphine and Zofran for symptom relief He feels improved on recheck I wrote him some tramadol and recommended primary care follow-up Diagnosis Primary Impression: Acute right flank pain Additional Impressions: Ulcerative colitis Qualified Code: K51.919 - Ulcerative colitis with complication, unspecified location Anemia Qualified Code: D64.9 - Anemia, unspecified type Additional Instructions: The patient was advised to follow up with their physician and return if they worsen. The patient was warned about potential sedation for the medications they will receive on prescription. Med/Other Pt SpecificInfo: Prescription(s) given Scripts Tramadol 50 Mg Tab50 Mg PO Q6H PRN (PAIN) #15 TAB Ref 0 Prov:Mahendra Islas MD 11/30/16 Disposition: 01 DISCHARGE HOME Condition: Stable Mahendra Islas MD Nov 30, 2016 10:03
[2016-11-30] MEDS ORDERED: ONDANSETRON HCL 4 MG/2 ML VIAL IVP ONE (10:15)
[2016-11-30] MEDS ORDERED: MORPHINE SULFATE 4 MG/ML INJ IV PUSH ONE (10:15)
[2016-11-30 10:16] LABS: AUTOMATED NEUTROPHIL # 6.7 TH/MM3 (1.8-7.7); BASOPHIL # 0.1 TH/MM3 (0-0.2); BASOPHIL % 0.8 % (0.0-2.0); EOSINOPHIL # 0.1 TH/MM3 (0-0.4); EOSINOPHIL % 1.5 % (0.0-4.0); HEMATOCRIT 29.6 % (39.0-51.0); LYMPH % 13.4 % (9.0-44.0); LYMPHOCYTE # 1.1 TH/MM3 (1.0-4.8); MEAN CELL VOLUME 58.7 FL (80.0-100.0); MEAN CORPUSCULAR HEMOGLOBIN 17.4 PG (27.0-34.0); MONO % 7.3 % (0.0-8.0); PLATELET COUNT 416 TH/MM3 (150-450); RED BLOOD COUNT 5.04 MIL/MM3 (4.50-5.90); RED CELL DISTRIBUTION WIDTH 18.1 % (11.6-17.2); WHITE BLOOD COUNT 8.6 TH/MM3 (4.0-11.0)
[2016-11-30 10:24] LABS: POTASSIUM 3.9 MEQ/L (3.5-5.1)
[2016-11-30 10:26] LABS: HEMO FLAGS AUTO DIFF
[2016-11-30 10:30] LABS: APTT (PATIENT) 26.7 SEC (24.3-30.1); PROTHROMBIN TIME - PATIENT 10.8 SEC (9.8-11.6)
[2016-11-30] MEDS ORDERED: MORPHINE SULFATE 8 MG/ML INJ IV PUSH ONE (10:30)
[2016-11-30 10:32] VITALS: BP 132/84; PULSE 84; RESP 20; O2SAT 99
--- NOTE | 2016-11-30 10:55 | RADRPT ---
EXAM DATE/TIME: 11/30/2016 10:13 [facility] COMPARISON: CT ABDOMEN & PELVIS W CONTRAST, July 10, 2016, 13:02. INDICATIONS : Blood in stool. Low back pain for 1 week. Acute right flank pain. ORAL CONTRAST: No oral contrast ingested. RADIATION DOSE: 14.45 CTDIvol (mGy) MEDICAL HISTORY : Ulcerative colitis. SURGICAL HISTORY : None. ENCOUNTER: Initial ACUITY: 1 week PAIN SCALE: 7/10 LOCATION: Right flank TECHNIQUE: Volumetric scanning of the abdomen and pelvis was performed. Using automated exposure control and ad justment of the mA and/or kV according to patient size, radiation dose was kept as low as reasonably achievable to obtain optimal diagnostic quality images. DICOM format image data is available electro nically for review and comparison. FINDINGS: LOWER LUNGS: The visualized lower lungs are clear. LIVER: Homogeneous density without lesion. There is no dilation of the biliary tree. No calcified gallston es. SPLEEN: Normal size without lesion. PANCREAS: Within normal limits. KIDNEYS: 2 mm punctate calyceal calcification in the inferior pole of the left kidney. Low density cystic lesi on in the inferior pole of the left kidney is not well-demonstrated in the current exam. No radiopaqu e renal calculi or evidence for hydronephrosis or hydroureter on the right. ADRENAL GLANDS: Within normal limits. VASCULAR: There is no aortic aneurysm. BOWEL/MESENTERY: Evaluation of the bowels limited due to lack of p.o. and IV contrast. There does appear to be persistent mild colonic wall thickening extending from the hepatic flexure to the distal sigmoid colon consistent with patient's history of ulcerative colitis. There is mild prom inence of the vasa recti with numerous subcentimeter mesenteric nodes primarily in the perisigmoid an d left lower quadrant. No pneumatosis or drainable fluid collection. No free fluid. ABDOMINAL WALL: Within normal limits. RETROPERITONEUM: Multiple subcentimeter retroperitoneal nodes notable for number. BLADDER: No wall thickening or mass. REPRODUCTIVE: Within normal limits. INGUINAL: There is no lymphadenopathy or hernia. MUSCULOSKELETAL: Within normal limits for patient age. CONCLUSION: 1. Small punctate 2 mm nonobstructing calyceal calculus in the inferior pole of the left kidney. Othe rwise, no radiopaque renal calculi or evidence for obstructive uropathy as questioned. 2. Redemonstration of diffuse colonic wall thickening extending from the hepatic flexure to the dista l sigmoid colon with associated inflammatory changes consistent with colitis in this patient with his tory of ulcerative colitis. Overall the extent and pattern is not significantly changed from July and therefore likely subacute to chronic although acuity cannot be assessed due to lack of contrast. No perforation, abscess or free fluid. Kit Mason MD on November 30, 2016 at 10:41 Board Certified Radiologist. This report was verified electronically.
[2016-11-30 11:05] LABS: OVALOCYTES 1+ (NORMAL); ROULEAUX PRESENT (NORMAL); SCAN/DIFF AUTO DIFF CONFIRMED
[2016-11-30 11:12] VITALS: BP 140/78; PULSE 69; RESP 20; O2SAT 99
[2016-11-30] MEDS ORDERED: TRAM50TA PO (11:29)
== END 2016-11-30 11:42 | disposition home or self-care (01) ==
LOC: PHED 09:34
DX: R10.31 Right lower quadrant pain (principal); K51.90 Ulcerative colitis, unspecified, without complications; D64.9 Anemia, unspecified; K92.1 Melena; M54.5 Low back pain
CPT/HCPCS: 74176; 80048; 85025; 85610; 85730; 96374; 96375; 99285; J2270; J2405

== ENCOUNTER 2016-12-10 11:31 | Inpatient (IN) | payer BC ==
[~2016-12-10] VITALS: Ht 190.5 cm; Wt 89.4 kg
[~2016-12-10 11:31] MED LIST changes: +ASAC800T PO; -COLC1TAB15 PO; +TRAM50TA PO; -[UNRECOGNIZED DRUG - OTHER] PO
[2016-12-10 13:54] LABS: MEAN CORPUSCULAR HGB CONC 28.4 % (32.0-36.0)
[2016-12-10 14:00] VITALS: BP 137/70; PULSE 93; RESP 18; TEMP 97.1; O2SAT 96
[2016-12-10] MEDS: oxyCODONE/ACETAMINOPHEN 10 MG/325 MG TAB PO PRN ×2 (15:51→22:28)
[2016-12-10 16:00] VITALS: BP 125/58; PULSE 77; RESP 18; TEMP 98.1; O2SAT 99
[2016-12-10] MEDS ORDERED: PANTOPRAZOLE SOD 40 MG DELAYED RELEASE TAB PO ONE (16:00)
[2016-12-10] MEDS: SODIUM CHLOR 0.9% 1000 ML INJ 1,000 ML IV SCH ×2 (16:05→20:37)
[2016-12-10 16:54] LABS: AUTOMATED NEUTROPHIL # 7.1 TH/MM3 (1.8-7.7); BASOPHIL # 0.1 TH/MM3 (0-0.2); BASOPHIL % 0.7 % (0.0-2.0); EOSINOPHIL # 0.3 TH/MM3 (0-0.4); EOSINOPHIL % 2.9 % (0.0-4.0); HEMATOCRIT 25.7 % (39.0-51.0); HEMO FLAGS DIFF FINAL; LYMPH % 16.3 % (9.0-44.0); LYMPHOCYTE # 1.7 TH/MM3 (1.0-4.8); MEAN CELL VOLUME 57.5 FL (80.0-100.0); MEAN CORPUSCULAR HEMOGLOBIN 16.3 PG (27.0-34.0); MONO % 9.4 % (0.0-8.0); NEUT % 70.7 % (16.0-70.0); PLATELET COUNT 571 TH/MM3 (150-450); RED BLOOD COUNT 4.47 MIL/MM3 (4.50-5.90); RED CELL DISTRIBUTION WIDTH 18.7 % (11.6-17.2); WHITE BLOOD COUNT 10.1 TH/MM3 (4.0-11.0)
[2016-12-10 17:16] LABS: ALT (GPT) 27 U/L (12-78); ANION GAP 3 MEQ/L (5-15); AST (GOT) 12 U/L (15-37); BICARBONATE 33.3 MEQ/L (21.0-32.0); BLOOD UREA NITROGEN 11 MG/DL (7-18); CHLORIDE 99 MEQ/L (98-107); GLOMERULAR FILTRATION RATE 111 ML/MIN (>89); POTASSIUM 3.8 MEQ/L (3.5-5.1); SODIUM (NA) 135 MEQ/L (136-145)
[2016-12-10 17:17] LABS: ALKALINE PHOSPHATASE 77 U/L (45-117); TOTAL BILIRUBIN ADULT 0.3 MG/DL (0.2-1.0)
[2016-12-10] MEDS ORDERED: SODIUM CHLOR 0.9% 250 ML INJ 250 ML IV ONE (18:15)
[2016-12-10] MEDS: MORPHINE SULFATE 8 MG/ML INJ IV PUSH PRN ×2 (18:41→21:33)
[2016-12-10 18:42] LABS: BLOOD, URINE NEG (NEG); COMMENT (UR) CULT NOT INDICATED; CULTURE IF INDICATED CULT NOT INDICATED; GLUCOSE,URINE NEG (NEG); KETONE, URINE NEG (NEG); NITRITE,URINE NEG (NEG); URINE COLOR YELLOW (YELLW/STRAW)
[2016-12-10 20:00] VITALS: BP 127/68; PULSE 82; RESP 19; TEMP 97; O2SAT 99
[2016-12-10] MEDS: MESALAMINE HD 800 MG DELAYED RELEASE TAB PO SCH (20:36)
[2016-12-10] MEDS ORDERED: DIATRIZOATE MEGLUM/DIATRIZOATE SOD 9 ML CUP PO ONE (20:45)
[2016-12-10 21:12] LABS: MEAN CORPUSCULAR HGB CONC 29.9 % (32.0-36.0)
[2016-12-10] MEDS: metroNIDAZOLE 500 MG TAB PO SCH (22:35)
[2016-12-10 23:21] LABS: AMYLASE 22 U/L (25-115)
[2016-12-10] MEDS ORDERED: IOHEXOL 350 MG/ML 10 ML VIAL (for RAD DIAG) IV ONE (23:54)
[2016-12-11] VITALS (10 sets, daily range): BP systolic 120–148; BP diastolic 65–80; PULSE 80–99; RESP 17–20; TEMP 96–99.6; O2SAT 95–99
--- NOTE | 2016-12-11 00:29 | RADRPT ---
EXAM DATE/TIME: 12/10/2016 23:46 [facility] COMPARISON: CT ABDOMEN & PELVIS W/O CONTRAST, November 30, 2016, 10:13. CT ABDOMEN & PELVIS W CONTRAST, July 10, 2016, 13:02. INDICATIONS : Severe abdomen and back pain. IV CONTRAST: 100 cc Omnipaque 350 (iohexol) IV ORAL CONTRAST: Prescribed oral contrast ingested. RADIATION DOSE: 6.77 CTDIvol (mGy) MEDICAL HISTORY : Ulcerative colitis. SURGICAL HISTORY : None. ENCOUNTER: Initial ACUITY: 1 day PAIN SCALE: 10/10 LOCATION: abdomen TECHNIQUE: Volumetric scanning of the abdomen and pelvis was performed. Using automated exposure control and ad justment of the mA and/or kV according to patient size, radiation dose was kept as low as reasonably achievable to obtain optimal diagnostic quality images. DICOM format image data is available electro nically for review and comparison. FINDINGS: LOWER LUNGS: Minimal bibasilar atelectasis/scarring with no confluent infiltrate. LIVER: Homogeneous density without lesion. There is no dilation of the biliary tree. No calcified gallston es. SPLEEN: Normal size without lesion. PANCREAS: Within normal limits. KIDNEYS: Normal in size and shape. There is no mass, stone or hydronephrosis. Punctate stones in the lower po le collecting system of the left kidney seen on the previous noncontrasted study are difficult to del ineate on the current contrasted exam. Benign-appearing 1.3 cm cyst in the lateral lower pole cortex of the left kidney ADRENAL GLANDS: Within normal limits. VASCULAR: There is no aortic aneurysm. BOWEL/MESENTERY: There is a discrete transition in the luminal diameter of the colon in the region of the splenic flex ure. The entire descending colon is decompressed with mild mural thickening and subtle pericolonic in flammatory changes. This extends into the sigmoid colon and is characteristic of the reported history of ulcerative colitis. ABDOMINAL WALL: Within normal limits. RETROPERITONEUM: There is no lymphadenopathy. Retroaortic left renal vein, anatomic variant BLADDER: No wall thickening or mass. REPRODUCTIVE: Within normal limits. INGUINAL: There is no lymphadenopathy or hernia. MUSCULOSKELETAL: Within normal limits for patient age. CONCLUSION: 1. Discrete transition in luminal diameter of the colon in the region of the splenic flexure with dec ompression of the entire descending colon, mild mural thickening and subtle pericolonic inflammatory changes extending into the sigmoid characteristic of the reported history of ulcerative colitis. 2. Minimal bibasilar atelectatic changes/scarring. 3. Benign-appearing 1.3 cm cortical cyst in the lateral lower pole cortex of the left kidney. Retroao rtic left renal vein. René Hernandez MD on December 11, 2016 at 0:20 Board Certified Radiologist. This report was verified electronically.
[2016-12-11] MEDS: MORPHINE SULFATE 8 MG/ML INJ IV PUSH PRN ×4 (00:35→09:28)
[2016-12-11] MEDS: SODIUM CHLOR 0.9% 1000 ML INJ 1,000 ML IV SCH ×4 (00:35→20:47)
[2016-12-11] MEDS: oxyCODONE/ACETAMINOPHEN 10 MG/325 MG TAB PO PRN ×4 (04:16→21:25)
[2016-12-11] MEDS: metroNIDAZOLE 500 MG TAB PO SCH ×3 (05:03→20:47)
[2016-12-11 08:36] LABS: AUTOMATED NEUTROPHIL # 6.6 TH/MM3 (1.8-7.7); BASOPHIL % 0.5 % (0.0-2.0); EOSINOPHIL # 0.2 TH/MM3 (0-0.4); EOSINOPHIL % 2.6 % (0.0-4.0); HEMATOCRIT 29.2 % (39.0-51.0); LYMPHOCYTE # 1.2 TH/MM3 (1.0-4.8); MEAN CELL VOLUME 60.9 FL (80.0-100.0); MEAN CORPUSCULAR HEMOGLOBIN 18.2 PG (27.0-34.0); MONO % 12.8 % (0.0-8.0); NEUT % 71.1 % (16.0-70.0); PLATELET COUNT 554 TH/MM3 (150-450); RED BLOOD COUNT 4.79 MIL/MM3 (4.50-5.90); RED CELL DISTRIBUTION WIDTH 22.3 % (11.6-17.2); WHITE BLOOD COUNT 9.3 TH/MM3 (4.0-11.0)
[2016-12-11 08:40] LABS: HEMO FLAGS AUTO DIFF
[2016-12-11 09:11] LABS: SCAN/DIFF AUTO DIFF CONFIRMED
[2016-12-11] MEDS: MESALAMINE HD 800 MG DELAYED RELEASE TAB PO SCH ×2 (09:29→20:46)
[2016-12-11 09:41] LABS: C. DIFF EPI 027 PRESUMPTIVE NEGATIVE (NEGATIVE)
[2016-12-11 09:53] LABS: C. DIFF TOXIN PCR POSITIVE (NEGATIVE)
[2016-12-11] MEDS ORDERED: oxyCODONE/ACETAMINOPHEN 10 MG/325 MG TAB PO PRN ×2 (11:15→12:00)
--- NOTE | 2016-12-11 11:21 | HHI.PR ---
Subjective Remarks Still C/O back pain. Denies Abd. pain. [address] shows left sided colitis. D/W lab- C. Diff positive Objective Vital Signs Date Time Temp Pulse Resp B/P Pulse Ox O2 Delivery O2 Flow Rate FiO2 12/11/16 08:00 97.6 88 17 129/66 97 12/11/16 06:30 20 12/11/16 06:22 98.3 12/11/16 05:15 99.2 90 20 129/66 98 12/11/16 05:00 96.2 96 20 148/80 96 12/11/16 05:00 96.2 99 20 148/80 99 12/11/16 04:53 20 12/11/16 03:10 97.5 87 20 122/72 98 12/11/16 02:55 96.9 88 20 126/67 98 12/11/16 02:55 96.9 88 20 126/67 98 12/11/16 00:00 96.0 96 20 134/72 98 12/10/16 20:00 97.0 82 19 127/68 99 12/10/16 16:00 98.1 77 18 125/58 99 12/10/16 14:00 97.1 93 18 137/70 96 I/O 12/10/16 12/10/16 12/10/16 12/11/16 12/11/16 12/11/16 07:00 15:00 23:00 07:00 15:00 23:00 Intake Total 480 ml 2355 ml Balance 480 ml 2355 ml Intake Oral 480 ml 480 ml IV Total 1275 ml Packed Cells 600 ml # Voids 2 7 # Bowel Movements 6 Result Diagram: 12/11/16 0812 12/10/16 1609 Objective Remarks VS-S Abd:soft,non tender. Assessment and Plan Assessment and Plan 1. C. Diff 2. Hx of UC Plan: Add Vanco. No steroids since C. Diff positve. Increase pain meds Add Ensure. Ryan Sutton MD Dec 11, 2016 11:20
[2016-12-11] MEDS: VANCOMYCIN 500 MG VIAL (FOR ORAL USE ONLY) PO SCH ×3 (13:17→20:46)
[2016-12-11] MEDS: HYDROmorphone HCL PF 1 MG/ML VIAL IV PUSH PRN ×4 (13:17→23:44)
[2016-12-11 21:09] LABS: MEAN CORPUSCULAR HGB CONC 29.9 % (32.0-36.0)
[2016-12-12] VITALS (7 sets, daily range): BP systolic 121–137; BP diastolic 59–78; PULSE 77–85; RESP 16–20; TEMP 95.7–98.9; O2SAT 97–99
[2016-12-12] MEDS: oxyCODONE/ACETAMINOPHEN 10 MG/325 MG TAB PO PRN ×5 (01:45→23:33)
[2016-12-12] MEDS: HYDROmorphone HCL PF 1 MG/ML VIAL IV PUSH PRN ×5 (03:51→20:22)
[2016-12-12] MEDS: metroNIDAZOLE 500 MG TAB PO SCH ×3 (05:10→20:24)
[2016-12-12] MEDS: SODIUM CHLOR 0.9% 1000 ML INJ 1,000 ML IV SCH ×3 (05:10→23:34)
[2016-12-12 05:46] LABS: AUTOMATED NEUTROPHIL # 4.1 TH/MM3 (1.8-7.7); BASOPHIL # 0.1 TH/MM3 (0-0.2); BASOPHIL % 0.9 % (0.0-2.0); EOSINOPHIL # 0.3 TH/MM3 (0-0.4); EOSINOPHIL % 4.8 % (0.0-4.0); HEMATOCRIT 28.6 % (39.0-51.0); HEMO FLAGS DIFF FINAL; LYMPH % 19.5 % (9.0-44.0); LYMPHOCYTE # 1.3 TH/MM3 (1.0-4.8); MEAN CELL VOLUME 61.2 FL (80.0-100.0); MEAN CORPUSCULAR HEMOGLOBIN 18.3 PG (27.0-34.0); MONO % 15.8 % (0.0-8.0); PLATELET COUNT 554 TH/MM3 (150-450); RED BLOOD COUNT 4.66 MIL/MM3 (4.50-5.90); RED CELL DISTRIBUTION WIDTH 22.8 % (11.6-17.2); WHITE BLOOD COUNT 6.9 TH/MM3 (4.0-11.0)
[2016-12-12 06:09] LABS: BICARBONATE 27.7 MEQ/L (21.0-32.0); POTASSIUM 3.8 MEQ/L (3.5-5.1)
--- NOTE | 2016-12-12 07:37 | HHI.PR ---
Subjective Remarks Still C/O back pain, especially on weight bearing right leg. Denies Abd. pain. [address] shows left sided colitis. MRI as OP ? anterior disc protrusion.C. Diff positive Objective Vital Signs Date Time Temp Pulse Resp B/P Pulse Ox O2 Delivery O2 Flow Rate FiO2 12/12/16 06:10 20 12/12/16 04:21 20 12/12/16 03:53 95.7 77 20 137/78 99 12/12/16 02:45 20 12/12/16 00:00 97.1 79 16 131/68 98 12/11/16 20:00 96.9 80 17 136/65 98 12/11/16 16:00 99.6 93 17 120/80 99 12/11/16 12:00 97.7 85 18 129/71 95 12/11/16 08:00 97.6 88 17 129/66 97 I/O 12/11/16 12/11/16 12/11/16 12/12/16 12/12/16 12/12/16 07:00 15:00 23:00 07:00 15:00 23:00 Intake Total 2355 ml 240 ml 480 ml 840 ml Balance 2355 ml 240 ml 480 ml 840 ml Intake Oral 480 ml 240 ml 480 ml 840 ml IV Total 1275 ml Packed Cells 600 ml # Voids 7 4 2 2 # Bowel Movements 6 3 2 2 Result Diagram: 12/12/16 0456 12/12/16 0456 Objective Remarks VS-S Abd:soft,non tender. I&Os- Not recorded as ordered. Reordered. D/W pt Assessment and Plan Assessment and Plan 1. C. Diff 2. Hx of UC 3. Low back pain when standing on right leg Plan: Add Vanco. No steroids since C. Diff positve. Increase pain meds Add Ensure.Accurate U/O. Reduce IVs. Advance to low residue soft diet. Ryan Sutton MD Dec 12, 2016 07:37
[2016-12-12] MEDS: VANCOMYCIN 500 MG VIAL (FOR ORAL USE ONLY) PO SCH ×4 (09:31→20:24)
[2016-12-12] MEDS: MESALAMINE HD 800 MG DELAYED RELEASE TAB PO SCH ×2 (09:31→20:24)
--- NOTE | 2016-12-12 12:36 | MB ---
cc: MARK SUTTON,OUSMANE Steiner M.D. DATE OF CONSULTATION: 12/12/2016 REASON FOR CONSULTATION: Low back pain. REQUESTING PHYSICIAN: Dr. Sutton. HISTORY This patient is a 36-year-old male who states he has had a two week history of low back pain, right-sided. He states he does a lot of lifting at his job and his work and thinks he possibly strained his back. He is unsure. He describes it as a pinched nerve pain in moderate severity. It is worse with standing, bending, lifting. He was recently admitted to [facility] with Clostridium difficile infection. He is currently being treated. He has a history of chronic colitis and history of GI bleed. He takes Asacol. He did have a recent MRI done at [facility] [place] which I have reviewed from 12/09/16 that shows bulging disc at L4-L5, L5-S1. No significant stenosis or large herniation. No nerve root compression or foraminal stenosis. PAST MEDICAL HISTORY: 1. Positive for chronic colitis. 2. History of GI bleed. 3. Ulcerative colitis. Currently being treated for Clostridium difficile infection. PAST SURGICAL HISTORY: Surgery on his right ankle. SOCIAL HISTORY: He occasionally drinks alcohol. Denies tobacco use. He has a history of using marijuana in the past. ALLERGIES: NO KNOWN DRUG ALLERGIES. MEDICATIONS: Asacol. REVIEW OF SYSTEMS: Negative other than low back pain. He has history of blood in his stool. History of right flank pain. PHYSICAL EXAMINATION: The patient is awake, alert, lying in bed, in no acute distress. HEENT: Normocephalic, atraumatic. Pupils round and reactive. NECK: Supple. LUNGS: Clear. HEART: Regular rate and rhythm. ABDOMEN: Soft. He is tender to palpation in the lower lumbar spine, right side. No motor or sensory deficits to his lower extremities. VITAL SIGNS: Temperature 97, pulse 69, respiratory rate 20, blood pressure 140/70. I did review the MRI from [facility], 12/09/16, that shows bulging disc, L4-L5, L5-S1, of mild severity. No significant stenosis seen. No significant herniation or extrusion of disc material. IMPRESSION: The patient is a 36 year-old male with history of ulcerative colitis, currently being treated for Clostridium difficile infection. He has bulging disc L4-L5, L5-S1. No significant stenosis, no significant extrusion or herniation of material. PLAN I discussed the diagnosis with the patient. I would recommend conservative treatment. Once discharged from the hospital, may consider physical therapy of his lumbar spine. I would not recommend any aggressive medication or intervention such as NSAIDs or even steroids as this point as he is currently battling infection for his Clostridium difficile and his history of ulcerative colitis. He may consider activity modification, avoid heavy lifting and bending. All questions have been answered. MD ISAEL Paz/SHAILESH /9:06 AM /12:29 PM
[2016-12-13] MEDS: HYDROmorphone HCL PF 1 MG/ML VIAL IV PUSH PRN ×5 (02:43→20:15)
[2016-12-13] MEDS: metroNIDAZOLE 500 MG TAB PO SCH ×3 (04:58→20:14)
[2016-12-13] MEDS: oxyCODONE/ACETAMINOPHEN 10 MG/325 MG TAB PO PRN ×4 (04:59→18:18)
[2016-12-13 08:00] VITALS: BP 133/72; PULSE 75; RESP 18; TEMP 96.7; O2SAT 97
[2016-12-13] MEDS: MESALAMINE HD 800 MG DELAYED RELEASE TAB PO SCH ×2 (09:42→20:14)
[2016-12-13] MEDS: VANCOMYCIN 500 MG VIAL (FOR ORAL USE ONLY) PO SCH ×4 (09:42→20:14)
[2016-12-13] MEDS: SODIUM CHLOR 0.9% 1000 ML INJ 1,000 ML IV SCH ×2 (11:29→21:13)
[2016-12-13 12:00] VITALS: BP 125/67; PULSE 81; RESP 18; TEMP 97.5; O2SAT 95
[2016-12-13 16:00] VITALS: BP 118/69; PULSE 74; RESP 18; TEMP 97; O2SAT 96
--- NOTE | 2016-12-13 16:42 | HHI.PR ---
Subjective Remarks C/R Surg afebrile, VSS wade PO c/o severe back pain - ortho consult noted Objective - Vital Signs Date Time Temp Pulse Resp B/P Pulse Ox O2 Delivery O2 Flow Rate FiO2 12/13/16 12:00 97.5 81 18 125/67 95 Result Diagram: 12/12/16 0456 12/12/16 0456 Objective Remarks PE alert Abd - full, slightly tympanic, non-tender A/P Assessment and Plan Imp: c.diff colitis/acute colitis on flagyl + vanco add steroids for colitis cont PO OOB poss biologics Topher Hammond MD Dec 13, 2016 16:42
[2016-12-13] MEDS: HYDROCORTISONE SOD SUCCINATE 100 MG VIAL IV PUSH SCH ×2 (18:18→20:14)
[2016-12-13 20:00] VITALS: BP 131/74; PULSE 92; RESP 20; TEMP 96.5; O2SAT 97
[2016-12-13 23:36] VITALS: BP 127/59; PULSE 78; RESP 19; TEMP 97.7; O2SAT 95
[2016-12-14] MEDS: oxyCODONE/ACETAMINOPHEN 10 MG/325 MG TAB PO PRN ×5 (01:21→21:20)
[2016-12-14] MEDS: metroNIDAZOLE 500 MG TAB PO SCH ×3 (05:21→21:20)
[2016-12-14] MEDS: HYDROCORTISONE SOD SUCCINATE 100 MG VIAL IV PUSH SCH ×3 (05:21→21:23)
[2016-12-14] MEDS: SODIUM CHLOR 0.9% 1000 ML INJ 1,000 ML IV SCH ×2 (07:13→14:45)
[2016-12-14 08:00] VITALS: BP 114/61; PULSE 75; RESP 18; TEMP 96.1; O2SAT 97
[2016-12-14] MEDS: HYDROmorphone HCL PF 1 MG/ML VIAL IV PUSH PRN ×4 (08:03→23:49)
[2016-12-14] MEDS: VANCOMYCIN 500 MG VIAL (FOR ORAL USE ONLY) PO SCH ×4 (08:07→21:19)
[2016-12-14] MEDS: MESALAMINE HD 800 MG DELAYED RELEASE TAB PO SCH ×2 (08:07→21:20)
[2016-12-14 12:28] VITALS: BP 119/59; PULSE 66; RESP 18; TEMP 96.4; O2SAT 97
[2016-12-14 16:33] VITALS: BP 143/74; PULSE 78; RESP 18; TEMP 96.6; O2SAT 98
--- NOTE | 2016-12-14 18:40 | HHI.PR ---
Subjective Remarks C/R Surg afebrile, VSS wade PO c/o severe back pain - some better Objective - Vital Signs Date Time Temp Pulse Resp B/P Pulse Ox O2 Delivery O2 Flow Rate FiO2 12/14/16 16:33 96.6 78 18 143/74 98 Result Diagram: 12/12/16 0456 12/12/16 0456 Objective Remarks PE alert Abd - full, slightly tympanic, non-tender A/P Assessment and Plan Imp: c.diff colitis/acute colitis on flagyl + vanco add steroids for colitis cont PO OOB may switch to PO steroids, plan Topher Koroma MD Dec 14, 2016 18:40
[2016-12-14 20:00] VITALS: BP 125/71; PULSE 67; RESP 20; TEMP 97; O2SAT 97
[2016-12-15] VITALS: BP 132/67; PULSE 78; RESP 20; TEMP 97; O2SAT 95
[2016-12-15] MEDS: SODIUM CHLOR 0.9% 1000 ML INJ 1,000 ML IV SCH ×3 (03:13→23:13)
[2016-12-15] MEDS: oxyCODONE/ACETAMINOPHEN 10 MG/325 MG TAB PO PRN ×4 (05:33→20:35)
[2016-12-15] MEDS: metroNIDAZOLE 500 MG TAB PO SCH ×3 (05:33→20:34)
[2016-12-15] MEDS: HYDROCORTISONE SOD SUCCINATE 100 MG VIAL IV PUSH SCH ×3 (05:37→20:35)
[2016-12-15 08:00] VITALS: BP 127/79; PULSE 73; RESP 17; TEMP 97.1; O2SAT 96
[2016-12-15] MEDS: MESALAMINE HD 800 MG DELAYED RELEASE TAB PO SCH ×2 (09:11→20:34)
[2016-12-15] MEDS: VANCOMYCIN 500 MG VIAL (FOR ORAL USE ONLY) PO SCH ×4 (09:11→20:35)
[2016-12-15 11:43] LABS: AUTOMATED NEUTROPHIL # 6.5 TH/MM3 (1.8-7.7); BASOPHIL % 0.1 % (0.0-2.0); EOSINOPHIL % 0.4 % (0.0-4.0); HEMATOCRIT 27.9 % (39.0-51.0); LYMPH % 11.8 % (9.0-44.0); MEAN CELL VOLUME 60.2 FL (80.0-100.0); MEAN CORPUSCULAR HEMOGLOBIN 18.4 PG (27.0-34.0); MEAN CORPUSCULAR HGB CONC 30.6 % (32.0-36.0); MONO % 9.5 % (0.0-8.0); NEUT % 78.2 % (16.0-70.0); PLATELET COUNT 775 TH/MM3 (150-450); RED BLOOD COUNT 4.64 MIL/MM3 (4.50-5.90); RED CELL DISTRIBUTION WIDTH 23.9 % (11.6-17.2); WHITE BLOOD COUNT 8.3 TH/MM3 (4.0-11.0)
[2016-12-15] MEDS: HYDROmorphone HCL PF 1 MG/ML VIAL IV PUSH PRN ×3 (11:46→23:43)
[2016-12-15 11:47] LABS: RETIC % 1.9 % (0.4-3.0); REVIEW FLAG FINAL
[2016-12-15 11:48] LABS: HEMO FLAGS AUTO DIFF
[2016-12-15 11:57] LABS: TRANSFERRIN IRON PROFILE 214 MG/DL (200-360)
[2016-12-15 12:00] VITALS: BP 127/63; PULSE 68; RESP 18; TEMP 96.2; O2SAT 97
--- NOTE | 2016-12-15 12:11 | HHI.FF ---
Face to Face Verification Diagnosis: (1) Colitis (2) Anemia Home Health Nursing Order: Medical education Signs/symptoms of disease process Nursing assessment with vital signs I have seen patient Efraín Britt on 12/15/16. My clinical findings support the need for the requested home health care services because: Deconditioned w/ increased weakness High risk of falls Infection w/ risk of complications I certify that my clinical findings support that this patient is homebound because: Post-op weakness Unsteady gait/balance Need for psychosocial assistance Topher Hammond MD Dec 15, 2016 12:11
[2016-12-15 13:01] LABS: OVALOCYTES 1+ (NORMAL); SPHEROCYTES 2+ (NORMAL); TARGET CELLS 2+ (NORMAL)
[2016-12-15 13:02] LABS: PLATELET ESTIMATE SMEAR HIGH (NORMAL); PLATELET MORPHOLOGY NORMAL (NORMAL); SCAN/DIFF AUTO DIFF CONFIRMED
--- NOTE | 2016-12-15 13:40 | HHI.PR ---
Subjective Remarks C/R Surg afebrile, VSS wade PO c/o severe back pain - some better again Objective - Vital Signs Date Time Temp Pulse Resp B/P Pulse Ox O2 Delivery O2 Flow Rate FiO2 12/15/16 12:00 96.2 68 18 127/63 97 Result Diagram: 12/15/16 1115 12/12/16 0456 Objective Remarks PE alert Abd - full, slightly tympanic, non-tender less bleeding A/P Assessment and Plan Imp: c.diff colitis/acute colitis on flagyl + vanco add steroids for colitis cont PO OOB may switch to PO steroids, plan dc MCV low - check Fe, may need infusion Topher Hammond MD Dec 15, 2016 13:40
[2016-12-15 16:00] VITALS: BP 139/76; PULSE 76; RESP 18; TEMP 96.3; O2SAT 97
[2016-12-15 20:00] VITALS: BP 143/69; PULSE 82; RESP 18; TEMP 98.2; O2SAT 97
[2016-12-16] VITALS: BP 127/67; PULSE 69; RESP 18; TEMP 97.4; O2SAT 97
[2016-12-16] MEDS: oxyCODONE/ACETAMINOPHEN 10 MG/325 MG TAB PO PRN ×2 (03:34→08:51)
[2016-12-16] MEDS: metroNIDAZOLE 500 MG TAB PO SCH (06:38)
[2016-12-16] MEDS: HYDROmorphone HCL PF 1 MG/ML VIAL IV PUSH PRN (06:38)
[2016-12-16] MEDS: HYDROCORTISONE SOD SUCCINATE 100 MG VIAL IV PUSH SCH (06:38)
[2016-12-16] MEDS ORDERED: METR-1 PO (07:51)
[2016-12-16] MEDS ORDERED: FERR325T20 PO (07:57)
[2016-12-16] MEDS ORDERED: PRED20 PO (07:57)
[2016-12-16 08:00] VITALS: BP 127/76; PULSE 63; RESP 17; TEMP 97; O2SAT 98
[2016-12-16] MEDS ORDERED: MESA1TAB2 PO (08:02)
--- NOTE | 2016-12-16 08:12 | HHI.PR ---
Subjective Remarks C/R Surg afebrile, VSS wade PO c//o less back pain Objective - Vital Signs Date Time Temp Pulse Resp B/P Pulse Ox O2 Delivery O2 Flow Rate FiO2 12/16/16 00:00 97.4 69 18 127/67 97 Result Diagram: 12/15/16 1115 12/12/16 0456 Objective Remarks PE alert Abd - full, non-tender less bleeding A/P Assessment and Plan Imp: c.diff colitis/acute colitis on flagyl + vanco add steroids for colitis cont PO OOB may switch to PO steroids, plan dc - today MCV low - check Fe, start PO iron Topher Hammond MD Dec 16, 2016 08:12
[2016-12-16] MEDS: MESALAMINE HD 800 MG DELAYED RELEASE TAB PO SCH (08:50)
[2016-12-16] MEDS: VANCOMYCIN 500 MG VIAL (FOR ORAL USE ONLY) PO SCH ×2 (08:51→12:23)
[2016-12-16] MEDS: SODIUM CHLOR 0.9% 1000 ML INJ 1,000 ML IV SCH (08:51)
[2016-12-16] MEDS ORDERED: predniSONE 20 MG TAB PO SCH (09:00)
[2016-12-16] MEDS ORDERED: FERROUS SULFATE 325 MG (65 MG ELEMENTAL IRON) TAB PO SCH (09:00)
[2016-12-16 12:00] VITALS: BP 121/66; PULSE 66; RESP 16; TEMP 97.1; O2SAT 97
== END 2016-12-16 12:50 | disposition home or self-care (01) | DRG 372 ==
LOC: N07B 13:27
PROVIDERS: ADMIT Colon & Rectal Surgery; ATTEND Colon & Rectal Surgery
DX: A04.7 Enterocolitis due to Clostridium difficile (principal); K51.90 Ulcerative colitis, unspecified, without complications; M54.5 Low back pain
CPT/HCPCS: 36430; 74177; 80048; 80053; 81001; 82150; 83540; 83550; 83690; 85025; 85044; 85652; 86077; 86850; 86870; 86900; 86901; 86920; 86922; 87493; J1170; J1720; J2270; J7030; J7050; J7512; P9016; Q9963; Q9967

== ENCOUNTER 2017-06-08 18:23 | Inpatient (IN) | payer BC ==
[~2017-06-08] VITALS: Ht 190.5 cm; Wt 91.2 kg
[~2017-06-08 18:23] MED LIST changes: +FERR325T20 PO; +MESA1TAB2 PO; +METR-1 PO; +PRED20 PO
[2017-06-08 18:25] VITALS: BP 162/76; PULSE 111; RESP 20; TEMP 97.9; O2SAT 100
[2017-06-08 19:14] VITALS: BP 111/63; PULSE 89; RESP 20; O2SAT 98
[2017-06-08] MEDS ORDERED: SODIUM CHLOR 0.9% 1000 ML INJ 1,000 ML IV SCH (19:31)
[2017-06-08] MEDS ORDERED: HYDROmorphone HCL PF 2 MG/ML VIAL IVS ONE (19:45)
[2017-06-08] MEDS ORDERED: ONDANSETRON HCL 4 MG/2 ML VIAL IVP ONE (19:45)
--- NOTE | 2017-06-08 19:59 | PD ---
HPI Chief Complaint: GI Complaint Time Seen by Provider: 19:31 Travel History International Travel<30 days: No Contact w/Intl Traveler<30days: No Traveled to known affect area: No History of Present Illness HPI This is a 37-year-old male with a history of ulcerative colitis, presents here with 2 week history of diarrhea. Patient reports over last 2 days he's had bright red blood per rectum. He denies any fevers, chills. He denies any dizziness. He does state that he is weak. He reports decreased urine output. He reports his last flare was in November of last year. There are no other complaints at the time of my examination. PFSH Past Medical History Arthritis: No Asthma: No Autoimmune Disease: No Heart Rhythm Problems: No Cancer: No Cardiovascular Problems: No High Cholesterol: No Chemotherapy: No Chest Pain: No Congestive Heart Failure: No COPD: No Cerebrovascular Accident: No Diabetes: No Diminished Hearing: No Endocrine: No Gastrointestinal Disorders: Yes (ULCERATIVE COLITIS) GERD: No Genitourinary: No Hiatal Hernia: No Immune Disorder: No Implanted Vascular Access Dvce: No Kidney Stones: No Musculoskeletal: No Neurologic: No Psychiatric: No Reproductive: No Respiratory: No Migraines: No Radiation Therapy: No Renal Failure: No Seizures: No Sickle Cell Disease: No Sleep Apnea: No Thyroid Disease: No Ulcer: Yes Past Surgical History Abdominal Surgery: No AICD: No Arteriovenous Shunt: No Cardiac Surgery: No Ear Surgery: No Endocrine Surgery: No Eye Surgery: No Genitourinary Surgery: No Gynecologic Surgery: No Insulin Pump: No Joint Replacement: No Oral Surgery: No Pacemaker: No Thoracic Surgery: No Other Surgery: Yes (RIGHT ANKLE) Social History Alcohol Use: Yes ("OCCASIONALLY") Tobacco Use: No Substance Use: No Allergies-Medications (Allergen,Severity, Reaction): Coded Allergies: No Known Allergies (Unverified Allergy, Unknown, 06/08/17) Reported Meds & Prescriptions Reported Meds & Active Scripts Active Ferosul (Ferrous Sulfate) 325 Mg Tablet 325 Mg PO BID Reported Asacol HD (Mesalamine) 800 Mg Tab 800 Mg PO TID Swallow whole. Take on an empty stomach. Review of Systems Except as stated in HPI: all other systems reviewed are Neg General / Constitutional: No: Fever, Chills HENT: Positive: Lightheadedness, No: Headaches, Neck Pain Cardiovascular: No: Chest Pain or Discomfort, Palpitations Respiratory: No: Cough, Shortness of Breath Gastrointestinal: Positive: Diarrhea, Abdominal Pain, No: Nausea, Vomiting Genitourinary: No: Dysuria, Decreased Urinary Output Musculoskeletal: Positive: Weakness (generalized mild), No: Pain Skin: No Rash, No Lesions Neurologic: Positive: Weakness (generalized mild), No: Dizziness, Headache, Change in Mentation Psychiatric: No: Anxiety Physical Exam Narrative GENERAL: Well-developed well-nourished male in no acute respiratory distress. SKIN: Focused skin assessment warm/dry. HEAD: Atraumatic. Normocephalic. EYES: No scleral icterus. No injection or drainage. Conjunctiva do not appear pale. ENT: No nasal bleeding or discharge. Mucous membranes pink and dry. NECK: Trachea midline. CARDIOVASCULAR: Regular rate and rhythm. No murmur appreciated. RESPIRATORY: No accessory muscle use. Clear to auscultation. Breath sounds equal bilaterally. GASTROINTESTINAL: Abdomen soft, nondistended. Subjective crampy discomfort in the lower abdomen. No rebound or guarding. MUSCULOSKELETAL: No obvious deformities. No clubbing. No cyanosis. No edema. NEUROLOGICAL: Awake and alert. No obvious cranial nerve deficits. Motor grossly within normal limits. Normal speech. Data Data Last Documented VS Vital Signs Date Time Temp Pulse Resp B/P (MAP) Pulse Ox O2 Delivery O2 Flow Rate FiO2 06/08/17 20:47 78 20 135/81 (99) 97 06/08/17 19:14 Room Air 06/08/17 18:25 97.9 Orders Orders Complete Blood Count With Diff (06/08/17 19:31) Comprehensive Metabolic Panel (06/08/17 19:31) Prothrombin Time / Inr (Pt) (06/08/17 19:31) Act Partial Throm Time (Ptt) (06/08/17 19:31) Lipase (06/08/17 19:31) Urinalysis - C+S If Indicated (06/08/17 19:31) Abdomen, Upright Only (06/08/17 19:31) Iv Access Insert/Monitor (06/08/17 19:31) Ecg Monitoring (06/08/17 19:31) Oximetry (06/08/17 19:31) Type And Screen (06/08/17 19:31) Ondansetron Inj (Zofran Inj) (06/08/17 19:45) Sodium Chlor 0.9% 1000 Ml Inj (Ns 1000 M (06/08/17 19:31) Hydromorphone Pf Inj (Dilaudid Pf Inj) (06/08/17 19:45) Red Blood Cells (Rbc) (06/08/17 19:30) Ct Abd/Pel W/O Iv Contrast (06/08/17 ) Ciprofloxacin 400 Mg Premix (Cipro 400 M (06/08/17 23:00) Metronidazole 500 Mg Inj (Flagyl 500 Mg (06/08/17 22:00) Methylprednisolone So Succ Inj (Solumedr (06/08/17 22:00) Admit To Inpatient (06/08/17 ) Vital Signs (Adult) Q4H (06/08/17 21:35) Activity Oob With Assistance (06/08/17 21:35) Intake + Output TAMIKA.QSHIFT (06/08/17 21:35) Diet Npo (06/09/17 Breakfast) Sodium Chlor 0.9% 1000 Ml Inj (Ns 1000 M (06/08/17 21:35) Sodium Chloride 0.9% Flush (Ns Flush) (06/08/17 21:45) Sodium Chloride 0.9% Flush (Ns Flush) (06/09/17 09:00) Acetaminophen (Tylenol) (06/08/17 21:45) Ondansetron Inj (Zofran Inj) (06/08/17 21:45) Basic Metabolic Panel (Bmp) (06/09/17 06:00) Complete Blood Count With Diff (06/09/17 06:00) Case Management Consult (06/08/17 21:35) Scd Bilateral/Knee High TAMIKA.BID (06/08/17 21:35) Naloxone Inj (Narcan Inj) (06/08/17 21:45) Docusate Sodium-Senna (Korina-Colace) (06/09/17 09:00) Magnesium Hydroxide Liq (Milk Of Magnesi (06/08/17 21:45) Sennosides (Senokot) (06/08/17 21:45) Bisacodyl Supp (Dulcolax Supp) (06/08/17 21:45) Lactulose Liq (Lactulose Liq) (06/08/17 21:45) Inpatient Certification (06/08/17 ) Admit Order (Ed Use Only) (06/08/17 21:41) Labs Laboratory Tests Test 06/08/17 19:30 White Blood Count 12.5 TH/MM3 Red Blood Count 5.69 MIL/MM3 Hemoglobin 12.9 GM/DL Hematocrit 42.2 % Mean Corpuscular Volume 74.2 FL Mean Corpuscular Hemoglobin 22.6 PG Mean Corpuscular Hemoglobin Concent 30.5 % Red Cell Distribution Width 25.0 % Platelet Count 603 TH/MM3 Mean Platelet Volume 8.0 FL Neutrophils (%) (Auto) 76.6 % Lymphocytes (%) (Auto) 13.7 % Monocytes (%) (Auto) 8.0 % Eosinophils (%) (Auto) 1.3 % Basophils (%) (Auto) 0.4 % Neutrophils # (Auto) 9.6 TH/MM3 Lymphocytes # (Auto) 1.7 TH/MM3 Monocytes # (Auto) 1.0 TH/MM3 Eosinophils # (Auto) 0.2 TH/MM3 Basophils # (Auto) 0.0 TH/MM3 CBC Comment AUTO DIFF Prothrombin Time 10.7 SEC Prothromb Time International Ratio 1.1 RATIO Activated Partial Thromboplast Time 27.5 SEC Blood Urea Nitrogen 7 MG/DL Creatinine 0.99 MG/DL Random Glucose 102 MG/DL Total Protein 8.2 GM/DL Albumin 3.7 GM/DL Calcium Level 9.1 MG/DL Alkaline Phosphatase 67 U/L Aspartate Amino Transf (AST/SGOT) 14 U/L Alanine Aminotransferase (ALT/SGPT) 20 U/L Total Bilirubin 0.2 MG/DL Sodium Level 143 MEQ/L Potassium Level 3.8 MEQ/L Chloride Level 105 MEQ/L Carbon Dioxide Level 29.0 MEQ/L Anion Gap 9 MEQ/L Estimat Glomerular Filtration Rate 85 ML/MIN Lipase 142 U/L MDM Medical Decision Making Medical Screen Exam Complete: Yes Emergency Medical Condition: Yes Differential Diagnosis Ulcerative colitis flare versus diverticulitis versus metabolic arrangement versus anemia Narrative Course 37-year-old male history of ulcerative colitis, presents here with likely flare. Patient reports abdominal pain. He has had 2 weeks of diarrhea. Over the last couple days he's had bloody stool. Patient has maki blood coming from his rectum. His H&H is stable at this time. The rest of his exam is benign. He'll be admitted to the hospital. [facility] his service. Given the patient's presentation I will make him a full admit. Diagnosis Primary Impression: ulcerative colitis flare Additional Impressions: Rectal hemorrhage due to ulcerative colitis Abdominal pain Admitting Information Admitting Physician Requests: Admit Salbador Haji MD Jun 08, 2017 19:59
[2017-06-08 20:36] LABS: AUTOMATED NEUTROPHIL # 9.6 TH/MM3 (1.8-7.7); BASOPHIL % 0.4 % (0.0-2.0); EOSINOPHIL # 0.2 TH/MM3 (0-0.4); EOSINOPHIL % 1.3 % (0.0-4.0); HEMATOCRIT 42.2 % (39.0-51.0); HEMOGLOBIN 12.9 GM/DL (13.0-17.0); LYMPH % 13.7 % (9.0-44.0); LYMPHOCYTE # 1.7 TH/MM3 (1.0-4.8); MEAN CELL VOLUME 74.2 FL (80.0-100.0); MEAN CORPUSCULAR HEMOGLOBIN 22.6 PG (27.0-34.0); MEAN CORPUSCULAR HGB CONC 30.5 % (32.0-36.0); NEUT % 76.6 % (16.0-70.0); PLATELET COUNT 603 TH/MM3 (150-450); RED BLOOD COUNT 5.69 MIL/MM3 (4.50-5.90); WHITE BLOOD COUNT 12.5 TH/MM3 (4.0-11.0)
[2017-06-08 20:37] LABS: INTERNATIONAL NORMALIZED RATIO 1.1 RATIO; PROTHROMBIN TIME - PATIENT 10.7 SEC (9.8-11.6)
--- NOTE | 2017-06-08 20:39 | RADRPT ---
EXAM DATE/TIME: 06/08/2017 19:44 [facility] COMPARISON: ABDOMEN UPRIGHT ONLY, January 13, 2016, 9:46. INDICATIONS : Pain in abdomen. MEDICAL HISTORY : None. SURGICAL HISTORY : None. ENCOUNTER: Initial ACUITY: 1 day PAIN SCORE: 0/10 LOCATION: Bilateral abdomen FINDINGS: The bowel gas is nonspecific. There are no signs of obstruction or free air for technique. No defini te calcified stones are identified for technique. CONCLUSION: Nonspecific abdomen. Yrn Kate MD on June 08, 2017 at 20:37 Board Certified Radiologist. This report was verified electronically.
[2017-06-08 20:47] VITALS: BP 135/81; PULSE 78; RESP 20; O2SAT 97
[2017-06-08 21:23] LABS: ALBUMIN 3.7 GM/DL (3.4-5.0); ALT (GPT) 20 U/L (12-78); AST (GOT) 14 U/L (15-37); BLOOD UREA NITROGEN 7 MG/DL (7-18); CALCIUM 9.1 MG/DL (8.5-10.1); CHLORIDE 105 MEQ/L (98-107); CREATININE 0.99 MG/DL (0.60-1.30); GLOMERULAR FILTRATION RATE 85 ML/MIN (>89); GLUCOSE,RANDOM 102 MG/DL (74-106); LIPASE 142 U/L (73-393); SODIUM (NA) 143 MEQ/L (136-145)
[2017-06-08 21:26] LABS: ALKALINE PHOSPHATASE 67 U/L (45-117); TOTAL BILIRUBIN ADULT 0.2 MG/DL (0.2-1.0); TOTAL PROTEIN 8.2 GM/DL (6.4-8.2)
[2017-06-08] MEDS ORDERED: ACETAMINOPHEN 325 MG TAB PO PRN (21:45)
[2017-06-08] MEDS ORDERED: SENNOSIDES 8.6 MG TAB PO PRN (21:45)
[2017-06-08] MEDS ORDERED: MAGNESIUM HYDROXIDE SUSP 30 ML CUP PO PRN (21:45)
[2017-06-08] MEDS ORDERED: NALOXONE HCL 0.4 MG/ML AMP IV PUSH PRN (21:45)
[2017-06-08] MEDS ORDERED: ONDANSETRON HCL 4 MG/2 ML VIAL IVP PRN (21:45)
[2017-06-08] MEDS ORDERED: BISACODYL 10 MG SUPP RECTAL PRN (21:45)
[2017-06-08] MEDS ORDERED: LACTULOSE SYRUP 20 GM/30 ML CUP PO PRN (21:45)
[2017-06-08 22:12] LABS: OVALOCYTES 1+ (NORMAL)
--- NOTE | 2017-06-08 22:24 | RADRPT ---
EXAM DATE/TIME: 06/08/2017 22:03 [place] COMPARISON: CT ABDOMEN & PELVIS W CONTRAST, December 10, 2016, 23:46. INDICATIONS : Abdomen pain. ORAL CONTRAST: No oral contrast ingested. RADIATION DOSE: 6.84 CTDIvol (mGy) MEDICAL HISTORY : Colitis. SURGICAL HISTORY : None. ENCOUNTER: Initial ACUITY: 1 day PAIN SCALE: 5/10 LOCATION: Bilateral abdomen TECHNIQUE: Volumetric scanning of the abdomen and pelvis was performed. Using automated exposure control and ad justment of the mA and/or kV according to patient size, radiation dose was kept as low as reasonably achievable to obtain optimal diagnostic quality images. DICOM format image data is available electro nically for review and comparison. FINDINGS: CT Abdomen: The liver, spleen, pancreas, right kidney, adrenals are unremarkable. There is no evidenc e for any appreciable pathological adenopathy, free fluid, or bowel obstruction. There is dependent atelectasis in both lung bases posteriorly. Approximate 1.7 cm left renal cyst has not changed. There is a tiny 3 mm nonobstructing stone in left lower pole kidney. There is no ureteral stone and there is no hydronephrosis on either side. CT pelvis: There is no evidence for mass, abscess formation, or any significant adenopathy within the pelvis. The colon is not distended particularly the descending colon and sigmoid colon are not comp letely evaluated. CONCLUSION: Tiny nonobstructing stone left lower pole kidney. Yrn Kate MD on June 08, 2017 at 22:18 Board Certified Radiologist. This report was verified electronically.
--- NOTE | 2017-06-08 22:46 | HHI.HP ---
[facility] Service [facility] Primary Care Physician Topher Hammond MD Admission Diagnosis Ulcerative colitis flare. rectal bleeding, abdominal pain Diagnoses: Travel History International Travel<30 Days: No Contact w/Intl Traveler <30 Da: No Traveled to Known Affected Are: No History of Present Illness 37-year-old male with a history of ulcerative colitis presents to the emergency department and evaluated there. The patient reports her approximately the past 3 weeks he has had increasing diarrhea. He reports his stools became bloody approximately 1 week ago. He follows with Dr. Hammond and has an appointment to see him tomorrow. The patient reports that today he had approximately 10 episodes of bloody stools. He reports severe epigastric abdominal pain that radiates to his back. He denies nausea/vomiting or fevers. Has a mild leukocytosis of 12.5. H&H 12.9/42.2. She was tachycardic on arrival to 111. Temperature 97.9, respiratory rate 20, BP 162/76, pulse ox 100% on room air. Review of Systems Denies fever or chills Denies blurry vision, otorrhea, rhinorrhea Denies sore throat and cough No chest pain, palpitations, shortness of breath Positive abdominal pain Denies constipation/nausea/vomiting. Positive bloody diarrhea Denies muscle pain/weakness No rashes Past Family Social History Past Medical History Ulcerative colitis Past Surgical History Right ankle surgery Reported Medications Reported Meds & Active Scripts Active Ferosul (Ferrous Sulfate) 325 Mg Tablet 325 Mg PO BID Reported Asacol HD (Mesalamine) 800 Mg Tab 800 Mg PO TID Swallow whole. Take on an empty stomach. Allergies: Coded Allergies: No Known Allergies (Unverified Allergy, Unknown, 06/08/17) Family History Denies family history of DM/CAD Social History Quit smoking approximately 1 year ago. Drinks approximately 3-4 times a week, various amounts. Denies marijuana or illicit drugs. Physical Exam Vital Signs Vital Signs Date Time Temp Pulse Resp B/P (MAP) Pulse Ox O2 Delivery O2 Flow Rate FiO2 06/08/17 20:47 78 20 135/81 (99) 97 06/08/17 19:14 89 20 111/63 (79) 98 Room Air 06/08/17 18:25 97.9 111 20 162/76 (104) 100 Room Air Physical Exam GENERAL: male sitting up in bed SKIN: No rashes, ecchymoses or lesions. Cool and dry. HEAD: Atraumatic. Normocephalic. No temporal or scalp tenderness. EYES: Pupils equal round and reactive. Extraocular motions intact. No scleral icterus. No injection or drainage. ENT: Nose without bleeding, purulent drainage or septal hematoma. Throat without erythema, tonsillar hypertrophy or exudate. Uvula midline. Airway patent. NECK: Trachea midline. No JVD or lymphadenopathy. Supple, nontender, no meningeal signs. CARDIOVASCULAR: Regular rate and rhythm without murmurs, gallops, or rubs. RESPIRATORY: Clear to auscultation. Breath sounds equal bilaterally. No wheezes , rales, or rhonchi. GASTROINTESTINAL: Abdomen soft, tender to palpation worse in the epigastric area , nondistended. No hepato-splenomegaly, or palpable masses. No guarding. MUSCULOSKELETAL: Extremities without clubbing, cyanosis, or edema. No joint tenderness, effusion, or edema noted. No calf tenderness. NEUROLOGICAL: Awake and alert. Cranial nerves II through XII intact. Motor and sensory grossly within normal limits. Normal speech. Laboratory Laboratory Tests Test 06/08/17 19:30 White Blood Count 12.5 Red Blood Count 5.69 Hemoglobin 12.9 Hematocrit 42.2 Mean Corpuscular Volume 74.2 Mean Corpuscular Hemoglobin 22.6 Mean Corpuscular Hemoglobin Concent 30.5 Red Cell Distribution Width 25.0 Platelet Count 603 Mean Platelet Volume 8.0 Neutrophils (%) (Auto) 76.6 Lymphocytes (%) (Auto) 13.7 Monocytes (%) (Auto) 8.0 Eosinophils (%) (Auto) 1.3 Basophils (%) (Auto) 0.4 Neutrophils # (Auto) 9.6 Lymphocytes # (Auto) 1.7 Monocytes # (Auto) 1.0 Eosinophils # (Auto) 0.2 Basophils # (Auto) 0.0 CBC Comment AUTO DIFF Differential Comment AUTO DIFF CONFIRMED Platelet Estimate HIGH Platelet Morphology Comment ENLARGED Ovalocytes 1+ Prothrombin Time 10.7 Prothromb Time International Ratio 1.1 Activated Partial Thromboplast Time 27.5 Blood Urea Nitrogen 7 Creatinine 0.99 Random Glucose 102 Total Protein 8.2 Albumin 3.7 Calcium Level 9.1 Alkaline Phosphatase 67 Aspartate Amino Transf (AST/SGOT) 14 Alanine Aminotransferase (ALT/SGPT) 20 Total Bilirubin 0.2 Sodium Level 143 Potassium Level 3.8 Chloride Level 105 Carbon Dioxide Level 29.0 Anion Gap 9 Estimat Glomerular Filtration Rate 85 Lipase 142 Result Diagram: 06/08/17192906/08/171929 Caprini VTE Risk Assessment Caprini VTE Risk Assessment: No/Low Risk (score <= 1) Caprini Risk Assessment Model Point Value = 1 Point Value = 2 Point Value = 3 Point Value = 5 Age 41-60 Minor surgery BMI > 25 kg/m2 Swollen legs Varicose veins or History of unexplained or recurrent spontaneous Oral contraceptives or hormone replacement Sepsis (< 1 month) Serious lung disease, including pneumonia (< 1 month) Abnormal pulmonary function Acute myocardial infarction Congestive heart failure (< 1 month) History of inflammatory bowel disease Medical patient at bed rest Age 61-74 Arthroscopic surgery Major open surgery (> 45 min) Laparoscopic surgery (> 45 min) Malignancy Confined to bed (> 72 hours) Immobilizing plaster cast Central venous access Age >= 75 History of VTE Family history of VTE Factor V Leiden Prothrombin [id number] Lupus anticoagulant Anticardiolipin antibodies Elevated serum homocysteine Heparin-induced thrombocytopenia Other congenital or acquired thrombophilia Stroke (< 1 month) Elective arthroplasty Hip, pelvis, or leg fracture Acute spinal cord injury (< 1 month) Prophylaxis Regimen Total Risk Factor Score Risk Level Prophylaxis Regimen 0-1 Low Early ambulation 2 Moderate Order ONE of the following: *Sequential Compression Device (SCD) *Heparin 5000 units SQ BID 3-4 Higher Order ONE of the following medications: *Heparin 5000 units SQ TID *Enoxaparin/Lovenox 40 mg SQ daily (WT < 150 kg, CrCl > 30 mL/min) *Enoxaparin/Lovenox 30 mg SQ daily (WT < 150 kg, CrCl > 10-29 mL/min) *Enoxaparin/Lovenox 30 mg SQ BID (WT < 150 kg, CrCl > 30 mL/min) AND/OR *Sequential Compression Device (SCD) 5 or more Highest Order ONE of the following medications: *Heparin 5000 units SQ TID (Preferred with Epidurals) *Enoxaparin/Lovenox 40 mg SQ daily (WT < 150 kg, CrCl > 30 mL/min) *Enoxaparin/Lovenox 30 mg SQ daily (WT < 150 kg, CrCl > 10-29 mL/min) *Enoxaparin/Lovenox 30 mg SQ BID (WT < 150 kg, CrCl > 30 mL/min) AND *Sequential Compression Device (SCD) Assessment and Plan Assessment and Plan Assessment/plan: 1. Ulcerative colitis flare Patient reports compliance with his mesalamine CT of the abdomen/pelvis pending X-rays abdomen showed no acute findings, images reviewed by me Waller/Shay Watersu-Emeterio Patient sees Dr. Hammond who is consulted, appreciate recommendations Repeat H&H at 1 AM as patient having repeated bouts of bloody diarrhea, trend CBC FEN NPO NS at 125 cc/hr Electrolytes: monitor and replete prn SCDs Physician Certification 2 Midnight Certification Type: Admission for Inpatient Services Order for Inpatient Services The services are ordered in accordance with Medicare regulations or non- Medicare payer requirements, as applicable. In the case of services not specified as inpatient-only, they are appropriately provided as inpatient services in accordance with the 2-midnight benchmark. Estimated LOS (days): 2 2 days is the estimated time the patient will need to remain in the hospital, assuming treatment plan goals are met and no additional complications. Post-Hospital Plan: Not yet determined Penelope Ballard MD Jun 08, 2017 22:46
[2017-06-09] VITALS: BP 124/65; PULSE 78; RESP 19; TEMP 96.5; O2SAT 98
[2017-06-09] MEDS ORDERED: ACETAMINOPHEN/HYDROcodone 325 MG/5 MG TAB PO PRN (01:30)
[2017-06-09] MEDS ORDERED: HYDROmorphone HCL PF 2 MG/ML VIAL IV PUSH PRN (01:30)
[2017-06-09] MEDS ORDERED: ACETAMINOPHEN 325 MG TAB PO PRN (01:30)
[2017-06-09] MEDS: SODIUM CHLOR 0.9% 1000 ML INJ 1,000 ML IV SCH ×3 (02:02→14:55)
[2017-06-09] MEDS: CIPROFLOXACIN 400 MG PREMIX 200 ML IV SCH ×3 (02:02→23:00)
[2017-06-09] MEDS: HYDROmorphone HCL PF 2 MG/ML VIAL IV PUSH PRN ×5 (02:02→21:20)
[2017-06-09] MEDS: metroNIDAZOLE 500 MG INJ 100 ML IV SCH ×4 (02:03→21:08)
[2017-06-09] MEDS: SODIUM CHLORIDE 0.9% FLUSH 10 ML FLUSH IV FLUSH PRN ×4 (02:03→21:20)
[2017-06-09] MEDS: methylPREDNISolone SOD SUCC 40 MG/1 ML VIAL IV PUSH SCH ×4 (02:03→21:08)
[2017-06-09 02:10] LABS: AUTOMATED NEUTROPHIL # 7.2 TH/MM3 (1.8-7.7); BASOPHIL # 0.1 TH/MM3 (0-0.2); BASOPHIL % 0.6 % (0.0-2.0); EOSINOPHIL # 0.2 TH/MM3 (0-0.4); EOSINOPHIL % 2.2 % (0.0-4.0); HEMOGLOBIN 11.8 GM/DL (13.0-17.0); LYMPHOCYTE # 1.8 TH/MM3 (1.0-4.8); MEAN CELL VOLUME 73.3 FL (80.0-100.0); MEAN CORPUSCULAR HEMOGLOBIN 23.4 PG (27.0-34.0); MEAN CORPUSCULAR HGB CONC 31.9 % (32.0-36.0); MEAN PLATELET VOLUME 7.8 FL (7.0-11.0); MONO % 9.1 % (0.0-8.0); MONOCYTE # 0.9 TH/MM3 (0-0.9); NEUT % 70.1 % (16.0-70.0); PLATELET COUNT 458 TH/MM3 (150-450); RED BLOOD COUNT 5.05 MIL/MM3 (4.50-5.90); RED CELL DISTRIBUTION WIDTH 24.1 % (11.6-17.2); WHITE BLOOD COUNT 10.2 TH/MM3 (4.0-11.0)
[2017-06-09 02:11] LABS: HEMATOCRIT 37.1 % (39.0-51.0); HEMOGLOBIN 11.5 GM/DL (13.0-17.0)
[2017-06-09 02:24] LABS: BICARBONATE 29.9 MEQ/L (21.0-32.0); CALCIUM 8.2 MG/DL (8.5-10.1); CREATININE 0.72 MG/DL (0.60-1.30)
[2017-06-09 02:48] LABS: ACANTHOCYTES OCC (NORMAL); OVALOCYTES 1+ (NORMAL)
[2017-06-09] MEDS: SODIUM CHLORIDE 0.9% FLUSH 10 ML FLUSH IV FLUSH SCH ×2 (07:48→21:08)
[2017-06-09 08:00] VITALS: BP 121/67; PULSE 62; RESP 20; TEMP 96.9; O2SAT 97
[2017-06-09] MEDS ORDERED: DOCUSATE SODIUM 50 MG/SENNA 8.6 MG TAB PO SCH (09:00)
[2017-06-09] MEDS: PANTOPRAZOLE SOD 40 MG DELAYED RELEASE TAB PO SCH (09:28)
[2017-06-09 11:27] VITALS: BP 99/52; PULSE 56; RESP 19; TEMP 97.8; O2SAT 95
--- NOTE | 2017-06-09 13:46 | HHI.PR ---
Subjective Remarks Abdominal pain Pain 4 out of 10 Still having diarrhea no hematochezia Objective Vitals Vital Signs Date Time Temp Pulse Resp B/P (MAP) Pulse Ox O2 Delivery O2 Flow Rate FiO2 06/09/17 11:27 97.8 56 19 99/52 (68) 95 06/09/17 08:00 96.9 62 20 121/67 (85) 97 06/09/17 00:00 96.5 78 19 124/65 (84) 98 06/08/17 20:47 78 20 135/81 (99) 97 06/08/17 19:14 89 20 111/63 (79) 98 Room Air 06/08/17 18:25 97.9 111 20 162/76 (104) 100 Room Air I/O 06/08/17 06/08/17 06/08/17 06/09/17 06/09/17 06/09/17 07:00 15:00 23:00 07:00 15:00 23:00 Intake Total 0 ml 540 ml 0 ml Balance 0 ml 540 ml 0 ml Intake Oral 0 ml 240 ml 0 ml IV Total 300 ml # Voids 1 1 Result Diagram: 06/09/17 0116 06/09/17 0116 Objective Remarks GENERAL: This is a well-nourished, well-developed patient, in no apparent distress. SKIN: No rashes, warm and dry HEAD: Atraumatic. Normocephalic. EYES: Pupils equal round and reactive. Extraocular motions intact. No scleral icterus. ENT: Nose without bleeding, or drainage, Airway patent. NECK: Trachea midline. Supple CARDIOVASCULAR: Regular rate and rhythm without murmurs, gallops, or rubs. RESPIRATORY: Fair air entry bilaterally. No wheezes, rales, or rhonchi. GASTROINTESTINAL: Abdomen soft, positive TTP, nondistended. Positive bowel sounds MUSCULOSKELETAL: Extremities without clubbing, cyanosis, or edema. Pedal pulses appreciated NEUROLOGICAL: Awake and alert. Moves all extremity. Normal speech.no focal neurological deficit A/P Assessment and Plan 1. Ulcerative colitis flare CT of the abdomen/pelvis tiny little nonobstructive's stone in the left kidney X-rays abdomen showed no acute findings, images reviewed by me Waller/Shay Pacheco Appreciate Dr. Hammond consult plan for proctoscopy D VT prophylaxis with Deepali Oshea MD Jun 09, 2017 13:46
[2017-06-09 16:00] VITALS: BP 108/58; PULSE 64; RESP 19; TEMP 96.9; O2SAT 98
[2017-06-09 20:00] VITALS: BP 120/55; PULSE 63; RESP 21; TEMP 96.4; O2SAT 97
--- NOTE | 2017-06-09 23:13 | HHI.PR ---
Subjective Remarks C/R surg Events since last adm reviewed Pt doing well until alst few weeks - noted incr diarrhea/BRB started on predn wihile out of town with little improvement Now adm for additional Rx Objective - Vital Signs Date Time Temp Pulse Resp B/P (MAP) Pulse Ox O2 Delivery O2 Flow Rate FiO2 06/09/17 20:00 96.4 63 21 120/55 (76) 97 06/08/17 19:14 Room Air Result Diagram: 06/09/17 0116 06/09/17 0116 Other Results PE alert Abd - soft, slightly tender, no mass A/P Assessment and Plan Imp: acute colitis - pt stable, monitor BRB steroids check c. diff procto in AM Topher Hammond MD Jun 09, 2017 23:12
[2017-06-09] MEDS ORDERED: MAGNESIUM CITRATE SOLN 300 ML BTL PO ONE (23:15)
[2017-06-10] VITALS: BP 111/54; PULSE 62; RESP 18; TEMP 95.8; O2SAT 97
[2017-06-10] MEDS: HYDROmorphone HCL PF 2 MG/ML VIAL IV PUSH PRN ×2 (01:54→06:22)
[2017-06-10] MEDS: SODIUM CHLORIDE 0.9% FLUSH 10 ML FLUSH IV FLUSH PRN ×3 (01:55→06:22)
[2017-06-10] MEDS ORDERED: POVIDONE IODINE 5% (ANTISEPSIS KIT) 4 APPLICATIONS EACH NARE PRN (05:15)
[2017-06-10] MEDS ORDERED: SODIUM CHLORID 0.9% 500 ML IV PRN (05:15)
[2017-06-10] MEDS ORDERED: METOPROLOL TARTRATE 25 MG TAB PO PRN (05:15)
[2017-06-10] MEDS ORDERED: CHLORHEXIDINE GLUCONATE 2 % 1 PACK (2 CLOTHS) TOPICAL PRN (05:15)
[2017-06-10] MEDS ORDERED: LACTATED RINGER'S 1000 ML IV PRN (05:15)
[2017-06-10] MEDS: methylPREDNISolone SOD SUCC 40 MG/1 ML VIAL IV PUSH SCH ×3 (05:27→22:21)
[2017-06-10] MEDS: metroNIDAZOLE 500 MG INJ 100 ML IV SCH ×3 (05:27→22:22)
[2017-06-10] MEDS: SODIUM CHLOR 0.9% 1000 ML INJ 1,000 ML IV SCH ×3 (05:30→22:22)
[2017-06-10 08:00] VITALS: BP 118/60; PULSE 56; RESP 16; TEMP 95.7; O2SAT 97
[2017-06-10] MEDS: ACETAMINOPHEN/HYDROcodone 325 MG/7.5 MG TAB PO PRN ×4 (09:32→22:40)
[2017-06-10] MEDS: PANTOPRAZOLE SOD 40 MG DELAYED RELEASE TAB PO SCH (09:34)
[2017-06-10] MEDS: CIPROFLOXACIN 400 MG PREMIX 200 ML IV SCH ×2 (09:35→22:22)
[2017-06-10 12:00] VITALS: BP 112/60; PULSE 60; RESP 19; TEMP 97.8; O2SAT 99
[2017-06-10] MEDS ORDERED: LIDOCAINE HCL 1% PF 5 ML SYRINGE OTHER ONE (12:00)
[2017-06-10] MEDS ORDERED: PROPOFOL 200 MG/20 ML AMP IV ONE (12:00)
[2017-06-10 16:00] VITALS: BP 117/64; PULSE 68; RESP 19; TEMP 97.8; O2SAT 97
--- NOTE | 2017-06-10 19:43 | HHI.PR ---
Subjective Remarks Going for proctoscopy today, abdominal pain 3 out of 10, positive diarrhea but no blood Afebrile Objective Vitals Vital Signs Date Time Temp Pulse Resp B/P (MAP) Pulse Ox O2 Delivery O2 Flow Rate FiO2 06/10/17 16:16 97.5 61 18 130/69 (89) 99 06/10/17 16:00 97.8 68 19 117/64 (81) 97 06/10/17 12:00 97.8 60 19 112/60 (77) 99 06/10/17 08:00 95.7 56 16 118/60 (79) 97 06/10/17 00:00 95.8 62 18 111/54 (73) 97 06/09/17 20:00 96.4 63 21 120/55 (76) 97 I/O 06/09/17 06/09/17 06/09/17 06/10/17 06/10/17 06/10/17 07:00 15:00 23:00 07:00 15:00 23:00 Intake Total 540 ml 300 ml 1060 ml 1300 ml 540 ml 880 ml Output Total 750 ml 1300 ml 900 ml Balance 540 ml 300 ml 310 ml 0 ml 540 ml -20 ml Intake Oral 240 ml 0 ml 960 ml 240 ml 480 ml IV Total 300 ml 300 ml 100 ml 1300 ml 300 ml 200 ml Other 200 ml Output Urine Total 750 ml 1300 ml 900 ml # Voids 1 # Bowel Movements 0 1 1 Result Diagram: 06/09/1711506/09/17115 Objective Remarks GENERAL: This is a well-nourished, well-developed patient, in no apparent distress. SKIN: No rashes, warm and dry HEAD: Atraumatic. Normocephalic. EYES: Pupils equal round and reactive. Extraocular motions intact. No scleral icterus. ENT: Nose without bleeding, or drainage, Airway patent. NECK: Trachea midline. Supple CARDIOVASCULAR: Regular rate and rhythm without murmurs, gallops, or rubs. RESPIRATORY: Fair air entry bilaterally. No wheezes, rales, or rhonchi. GASTROINTESTINAL: Abdomen soft, tender to palpation, nondistended. Positive bowel sounds MUSCULOSKELETAL: Extremities without clubbing, cyanosis, or edema. Pedal pulses appreciated NEUROLOGICAL: Awake and alert. Moves all extremity. Normal speech.no focal neurological deficit A/P Assessment and Plan 1. Ulcerative colitis flare CT of the abdomen/pelvis tiny little nonobstructive's stone in the left kidney X-rays abdomen showed no acute findings, images reviewed by me Waller/Shay Pacheco Appreciate Dr. Hammond consult going for proctoscopy today D VT prophylaxis with SCD Deepali Delvalle MD Jun 10, 2017 19:42
[2017-06-10 20:00] VITALS: BP 122/66; PULSE 74; RESP 16; TEMP 96.2; O2SAT 97
[2017-06-10] MEDS: SODIUM CHLORIDE 0.9% FLUSH 10 ML FLUSH IV FLUSH SCH (22:22)
--- NOTE | 2017-06-10 22:29 | HHI.PR ---
Subjective Remarks C/R surg Events since last adm reviewed afebrile, VSS UO good less BRB no abd pain Objective - Vital Signs Date Time Temp Pulse Resp B/P (MAP) Pulse Ox O2 Delivery O2 Flow Rate FiO2 06/10/17 20:00 96.2 74 16 122/66 (84) 97 06/08/17 19:14 Room Air Result Diagram: 06/09/17 0116 06/09/17 0116 Other Results PE alert Abd - soft, mild tender LLQ, no mass A/P Assessment and Plan Imp: acute colitis - pt stable, monitor BRB steroids check c. diff procto in AM - colon showing severe colitis from rectum to transverse colon cont steroids, discussed biologics with pt vs surgery Topher Hammond MD Jun 10, 2017 22:29
[2017-06-11] VITALS: BP 125/70; PULSE 64; RESP 18; TEMP 97.1; O2SAT 98
[2017-06-11] MEDS: methylPREDNISolone SOD SUCC 40 MG/1 ML VIAL IV PUSH SCH ×3 (06:04→22:05)
[2017-06-11] MEDS: metroNIDAZOLE 500 MG INJ 100 ML IV SCH ×3 (06:04→22:06)
[2017-06-11] MEDS: SODIUM CHLOR 0.9% 1000 ML INJ 1,000 ML IV SCH ×2 (06:23→16:13)
[2017-06-11] MEDS: PANTOPRAZOLE SOD 40 MG DELAYED RELEASE TAB PO SCH (07:58)
[2017-06-11] MEDS: SODIUM CHLORIDE 0.9% FLUSH 10 ML FLUSH IV FLUSH SCH ×2 (07:59→20:07)
[2017-06-11] MEDS: ACETAMINOPHEN/HYDROcodone 325 MG/7.5 MG TAB PO PRN ×4 (07:59→22:05)
[2017-06-11 08:00] VITALS: BP 147/65; PULSE 57; RESP 18; TEMP 96.6; O2SAT 96
[2017-06-11] MEDS: CIPROFLOXACIN 400 MG PREMIX 200 ML IV SCH ×2 (11:13→22:06)
[2017-06-11 12:00] VITALS: BP 129/71; PULSE 58; RESP 16; TEMP 96.4; O2SAT 97
[2017-06-11 16:00] VITALS: BP 131/75; PULSE 68; RESP 17; TEMP 97.5; O2SAT 99
[2017-06-11 20:00] VITALS: BP 129/75; PULSE 64; RESP 18; TEMP 96.5; O2SAT 97
[2017-06-11] MEDS: HYDROmorphone HCL PF 2 MG/ML VIAL IV PUSH PRN (20:06)
--- NOTE | 2017-06-11 21:21 | HHI.PR ---
Subjective Remarks Pain improved: Max 3 out of 10, still loose stool no hematochezia, endoscopy showed colitis from rectum to transverse colon Objective Vitals Vital Signs Date Time Temp Pulse Resp B/P (MAP) Pulse Ox O2 Delivery O2 Flow Rate FiO2 06/11/17 20:00 96.5 64 18 129/75 (93) 97 06/11/17 16:00 97.5 68 17 131/75 (93) 99 06/11/17 12:00 96.4 58 16 129/71 (90) 97 06/11/17 08:00 96.6 57 18 147/65 (92) 96 06/11/17 00:00 97.1 64 18 125/70 (88) 98 I/O 06/10/17 06/10/17 06/10/17 06/11/17 06/11/17 06/11/17 07:00 15:00 23:00 07:00 15:00 23:00 Intake Total 1300 ml 540 ml 2480 ml 1300 ml 200 ml 1060 ml Output Total 1300 ml 900 ml Balance 0 ml 540 ml 1580 ml 1300 ml 200 ml 1060 ml Intake Oral 240 ml 1080 ml 0 ml 960 ml IV Total 1300 ml 300 ml 1200 ml 1300 ml 200 ml 100 ml Other 200 ml Output Urine Total 1300 ml 900 ml # Voids 1 1 3 # Bowel Movements 1 2 0 1 Result Diagram: 06/09/1711506/09/17115 Objective Remarks GENERAL: This is a well-nourished, well-developed patient, in no apparent distress. SKIN: No rashes, warm and dry HEAD: Atraumatic. Normocephalic. EYES: Pupils equal round and reactive. Extraocular motions intact. No scleral icterus. ENT: Nose without bleeding, or drainage, Airway patent. NECK: Trachea midline. Supple CARDIOVASCULAR: Regular rate and rhythm without murmurs, gallops, or rubs. RESPIRATORY: Fair air entry bilaterally. No wheezes, rales, or rhonchi. GASTROINTESTINAL: Abdomen soft, mild tenderness to palpation, nondistended. Positive bowel sounds MUSCULOSKELETAL: Extremities without clubbing, cyanosis, or edema. Pedal pulses appreciated NEUROLOGICAL: Awake and alert. Moves all extremity. Normal speech.no focal neurological deficit A/P Assessment and Plan 1. Ulcerative colitis flare CT of the abdomen/pelvis tiny little nonobstructive's stone in the left kidney X-rays abdomen showed no acute findings, images reviewed by me Waller/Shay Pacheco Appreciate Dr. Hammond consult status post endoscopy showing colitis from rectum to transverse colon biological medication is considered by Dr. Ritter Meza VT prophylaxis with SCD Discharge Planning When clear by rectal surgeon Deepali Delvalle MD Jun 11, 2017 21:21
[2017-06-12] VITALS: BP 126/75; PULSE 69; RESP 18; TEMP 96.1; O2SAT 97
[2017-06-12] MEDS: ACETAMINOPHEN/HYDROcodone 325 MG/7.5 MG TAB PO PRN ×6 (02:14→22:16)
[2017-06-12] MEDS: SODIUM CHLOR 0.9% 1000 ML INJ 1,000 ML IV SCH ×3 (02:55→22:55)
[2017-06-12] MEDS: metroNIDAZOLE 500 MG INJ 100 ML IV SCH ×3 (06:09→22:16)
[2017-06-12] MEDS: methylPREDNISolone SOD SUCC 40 MG/1 ML VIAL IV PUSH SCH ×3 (06:09→22:16)
[2017-06-12 08:00] VITALS: BP 122/75; PULSE 54; RESP 16; TEMP 96.8; O2SAT 97
[2017-06-12] MEDS: SODIUM CHLORIDE 0.9% FLUSH 10 ML FLUSH IV FLUSH SCH ×2 (08:42→20:32)
[2017-06-12] MEDS: PANTOPRAZOLE SOD 40 MG DELAYED RELEASE TAB PO SCH (08:43)
[2017-06-12] MEDS: CIPROFLOXACIN 400 MG PREMIX 200 ML IV SCH ×2 (10:06→22:16)
[2017-06-12 12:00] VITALS: BP 119/70; PULSE 58; RESP 16; TEMP 96.5; O2SAT 95
[2017-06-12 13:52] LABS: AUTOMATED NEUTROPHIL # 6.1 TH/MM3 (1.8-7.7); BASOPHIL % 0.1 % (0.0-2.0); HEMATOCRIT 38.2 % (39.0-51.0); LYMPH % 9.7 % (9.0-44.0); LYMPHOCYTE # 0.8 TH/MM3 (1.0-4.8); MEAN CELL VOLUME 73.4 FL (80.0-100.0); MEAN CORPUSCULAR HEMOGLOBIN 23.1 PG (27.0-34.0); MEAN CORPUSCULAR HGB CONC 31.5 % (32.0-36.0); MEAN PLATELET VOLUME 7.6 FL (7.0-11.0); MONO % 12.2 % (0.0-8.0); PLATELET COUNT 492 TH/MM3 (150-450); RED BLOOD COUNT 5.21 MIL/MM3 (4.50-5.90); RED CELL DISTRIBUTION WIDTH 23.5 % (11.6-17.2); WHITE BLOOD COUNT 7.8 TH/MM3 (4.0-11.0)
[2017-06-12] MEDS ORDERED: MORPHINE SULFATE 2 MG/ML INJ SQ PRN (14:15)
[2017-06-12 14:17] LABS: BICARBONATE 29.4 MEQ/L (21.0-32.0); CALCIUM 8.1 MG/DL (8.5-10.1); CREATININE 0.61 MG/DL (0.60-1.30)
[2017-06-12 16:00] VITALS: BP 113/73; PULSE 59; RESP 18; TEMP 96.1; O2SAT 98
[2017-06-12] MEDS: MORPHINE SULFATE 2 MG/ML INJ IV PUSH PRN ×2 (16:12→20:32)
--- NOTE | 2017-06-12 19:06 | HHI.PR ---
Subjective Remarks Patient resting in bed stated pain is much better but still having loose stool Objective Vitals Vital Signs Date Time Temp Pulse Resp B/P (MAP) Pulse Ox O2 Delivery O2 Flow Rate FiO2 06/12/17 16:00 96.1 59 18 113/73 (86) 98 06/12/17 12:00 96.5 58 16 119/70 (86) 95 06/12/17 08:00 96.8 54 16 122/75 (91) 97 06/12/17 06:14 20 06/12/17 00:00 96.1 69 18 126/75 (92) 97 06/11/17 20:36 20 06/11/17 20:00 96.5 64 18 129/75 (93) 97 I/O 06/11/17 06/11/17 06/11/17 06/12/17 06/12/17 06/12/17 07:00 15:00 23:00 07:00 15:00 23:00 Intake Total 1300 ml 200 ml 1060 ml 480 ml 300 ml 960 ml Balance 1300 ml 200 ml 1060 ml 480 ml 300 ml 960 ml Intake Oral 0 ml 960 ml 480 ml 960 ml IV Total 1300 ml 200 ml 100 ml 300 ml # Voids 1 3 2 2 # Bowel Movements 0 1 0 1 Result Diagram: 06/12/17 1310 06/12/17 1310 Objective Remarks GENERAL: This is a well-nourished, well-developed patient, in no apparent distress. SKIN: No rashes, warm and dry HEAD: Atraumatic. Normocephalic. EYES: Pupils equal round and reactive. Extraocular motions intact. No scleral icterus. ENT: Nose without bleeding, or drainage, Airway patent. NECK: Trachea midline. Supple CARDIOVASCULAR: Regular rate and rhythm without murmurs, gallops, or rubs. RESPIRATORY: Fair air entry bilaterally. No wheezes, rales, or rhonchi. GASTROINTESTINAL: Abdomen soft, mild tenderness to palpation, nondistended. Positive bowel sounds MUSCULOSKELETAL: Extremities without clubbing, cyanosis, or edema. Pedal pulses appreciated NEUROLOGICAL: Awake and alert. Moves all extremity. Normal speech.no focal neurological deficit A/P Assessment and Plan 1. Ulcerative colitis flare CT of the abdomen/pelvis tiny little nonobstructive's stone in the left kidney X-rays abdomen showed no acute findings, images reviewed by me Waller/Shay Pacheco Appreciate Dr. Hammond consult status post endoscopy showing colitis from rectum to transverse colon Plan to discuss biological medication tomorrow with the patient by rectal surgeon D VT prophylaxis with SCD Discharge Planning When clear by rectal surgeon Deepali Delvalle MD Jun 12, 2017 19:06
[2017-06-12 20:00] VITALS: BP 137/69; PULSE 61; RESP 17; TEMP 97.9; O2SAT 97
[2017-06-13] VITALS: BP 127/61; PULSE 52; RESP 17; TEMP 97.1; O2SAT 96
[2017-06-13] MEDS: MORPHINE SULFATE 2 MG/ML INJ IV PUSH PRN (01:15)
[2017-06-13] MEDS: ACETAMINOPHEN/HYDROcodone 325 MG/7.5 MG TAB PO PRN ×3 (04:51→19:57)
[2017-06-13] MEDS: metroNIDAZOLE 500 MG INJ 100 ML IV SCH (04:51)
[2017-06-13] MEDS: methylPREDNISolone SOD SUCC 40 MG/1 ML VIAL IV PUSH SCH ×2 (04:51→20:18)
[2017-06-13 08:00] VITALS: BP 129/73; PULSE 60; RESP 16; TEMP 95.9; O2SAT 98
[2017-06-13] MEDS: SODIUM CHLORIDE 0.9% FLUSH 10 ML FLUSH IV FLUSH SCH ×2 (09:00→20:18)
[2017-06-13] MEDS: CIPROFLOXACIN 400 MG PREMIX 200 ML IV SCH (09:35)
[2017-06-13] MEDS: PANTOPRAZOLE SOD 40 MG DELAYED RELEASE TAB PO SCH (09:35)
[2017-06-13] MEDS: HYDROmorphone HCL PF 2 MG/ML VIAL IV PUSH PRN (11:07)
--- NOTE | 2017-06-13 11:40 | HHI.PR ---
Subjective Remarks still loose stools- per patient more formed no bright red blood tolerating current soft diet still with abdominal discomfort Objective Vitals Vital Signs Date Time Temp Pulse Resp B/P (MAP) Pulse Ox O2 Delivery O2 Flow Rate FiO2 06/13/17 08:00 95.9 60 16 129/73 (91) 98 06/13/17 02:34 20 06/13/17 00:00 97.1 52 17 127/61 (83) 96 06/12/17 22:21 20 06/12/17 20:00 97.9 61 17 137/69 (91) 97 06/12/17 16:00 96.1 59 18 113/73 (86) 98 06/12/17 12:00 96.5 58 16 119/70 (86) 95 I/O 06/12/17 06/12/17 06/12/17 06/13/17 06/13/17 06/13/17 07:00 15:00 23:00 07:00 15:00 23:00 Intake Total 480 ml 300 ml 960 ml 240 ml Balance 480 ml 300 ml 960 ml 240 ml Intake Oral 480 ml 960 ml 240 ml IV Total 300 ml # Voids 2 2 1 # Bowel Movements 0 1 0 Result Diagram: 06/12/17 1310 06/12/17 1310 Imaging Last Impressions Abdomen X-Ray 06/08/17 1931 Signed Impressions: Service Date/Time: Thursday, June 08, 2017 19:44 - CONCLUSION: Nonspecific abdomen. Yrn Kate MD Abdomen/Pelvis CT 06/08/17 0000 Signed Impressions: Service Date/Time: Thursday, June 08, 2017 22:03 - CONCLUSION: Tiny nonobstructing stone left lower pole kidney. Yrn Kate MD Objective Remarks awake and alert, no acute distress anicteric lungs clear regular rhythm abdomen- soft, + bowel sounds, mild tenderness on deep palpation of lower abdomen extremities no edema A/P Assessment and Plan 37 years old male with history of UC- Ulcerative colitis flare -CT of the abdomen/pelvis tiny little nonobstructive's stone in the left kidney -X-rays abdomen showed no acute findings, images reviewed by me Cohen/Any MAKI today -On Solu-Medrol- taper down to 30 mg q 12 -Dr. Hammond ff- known to him-- -Plan to discuss biological medication DVT prophylaxis with SCD. Patient up and ambulating Jama Montemayor MD Jun 13, 2017 11:40
[2017-06-13] MEDS: SODIUM CHLOR 0.9% 1000 ML INJ 1,000 ML IV SCH ×2 (11:54→19:58)
[2017-06-13 12:00] VITALS: BP 127/66; PULSE 59; RESP 16; TEMP 96.7; O2SAT 98
[2017-06-13 16:00] VITALS: BP 139/66; PULSE 60; RESP 16; TEMP 96.3; O2SAT 96
[2017-06-13 20:00] VITALS: BP 129/82; PULSE 62; RESP 18; TEMP 96.5; O2SAT 97
--- NOTE | 2017-06-13 21:45 | HHI.PR ---
Subjective Remarks C/R surg Events since last adm reviewed afebrile, VSS UO good less BRB no abd pain Objective - Vital Signs Date Time Temp Pulse Resp B/P (MAP) Pulse Ox O2 Delivery O2 Flow Rate FiO2 06/13/17 20:00 96.5 62 18 129/82 (98) 97 Result Diagram: 06/12/17 1310 06/12/17 1310 Objective Remarks PE alert Abd - soft, non-tender A/P Assessment and Plan Imp: acute colitis - pt stable, monitor BRB steroids taper cont steroids, discussed biologics with pt vs surgery Topher Hammond MD Jun 13, 2017 21:45
[2017-06-14] VITALS: BP 129/79; PULSE 57; RESP 18; TEMP 96; O2SAT 96
[2017-06-14] MEDS: ACETAMINOPHEN/HYDROcodone 325 MG/7.5 MG TAB PO PRN ×3 (00:38→14:34)
[2017-06-14 08:00] VITALS: BP 118/73; PULSE 60; RESP 16; TEMP 96.7; O2SAT 97
[2017-06-14] MEDS: PANTOPRAZOLE SOD 40 MG DELAYED RELEASE TAB PO SCH (09:23)
[2017-06-14] MEDS: methylPREDNISolone SOD SUCC 40 MG/1 ML VIAL IV PUSH SCH (09:23)
[2017-06-14] MEDS: SODIUM CHLORIDE 0.9% FLUSH 10 ML FLUSH IV FLUSH SCH (09:26)
--- NOTE | 2017-06-14 09:58 | HHI.PR ---
Subjective Remarks states with some periumbilical discomfort still loose stools- slight blood streaked no fever or chills Objective Vitals Vital Signs Date Time Temp Pulse Resp B/P (MAP) Pulse Ox O2 Delivery O2 Flow Rate FiO2 06/14/17 08:00 96.7 60 16 118/73 (88) 97 06/14/17 00:00 96.0 57 18 129/79 (96) 96 06/13/17 20:00 96.5 62 18 129/82 (98) 97 06/13/17 16:00 96.3 60 16 139/66 (90) 96 06/13/17 12:00 96.7 59 16 127/66 (86) 98 I/O 06/13/17 06/13/17 06/13/17 06/14/17 06/14/17 06/14/17 06:59 14:59 22:59 06:59 14:59 22:59 Intake Total 240 ml 1146 ml Balance 240 ml 1146 ml Intake Oral 240 ml IV Total 1146 ml # Voids 1 4 2 # Bowel Movements 0 Result Diagram: 06/12/17 1310 06/12/17 1310 Imaging Last Impressions Abdomen X-Ray 06/08/17 1931 Signed Impressions: Service Date/Time: Thursday, June 08, 2017 19:44 - CONCLUSION: Nonspecific abdomen. Yrn Kate MD Abdomen/Pelvis CT 06/08/17 0000 Signed Impressions: Service Date/Time: Thursday, June 08, 2017 22:03 - CONCLUSION: Tiny nonobstructing stone left lower pole kidney. Yrn Kate MD Objective Remarks awake and alert, no acute distress anicteric lungs clear regular rhythm abdomen- soft, + bowel sounds, + mild tenderness on periumbilical area extremities no edema A/P Assessment and Plan 37 years old male with history of UC- Ulcerative colitis flare -On Solu-Medrol- taper down to 30 mg q 12- -Dr. Hammond ff- known to him-- - per patient received Humira in the past - "not better"- but only received 1 dose DVT prophylaxis with SCD. Patient up and ambulating DC planning - if cleared with CRS- on po steroids with OP ff up with CRS Jama Montemayor MD Jun 14, 2017 09:57
[2017-06-14] MEDS ORDERED: predniSONE 50 MG TAB PO ONE (10:15)
[2017-06-14 12:00] VITALS: BP 134/73; PULSE 66; RESP 17; TEMP 97.7; O2SAT 97
[2017-06-14] MEDS ORDERED: predniSONE 50 MG TAB PO SCH (12:00)
[2017-06-14 16:00] VITALS: BP 137/69; PULSE 64; RESP 17; TEMP 96.4; O2SAT 98
[2017-06-14] MEDS ORDERED: HUMI40KI SQ (17:31)
[2017-06-14] MEDS ORDERED: PRED50 PO (17:31)
--- NOTE | 2017-06-14 17:48 | HHI.PR ---
Subjective Remarks C/R surg Events since last adm reviewed afebrile, VSS UO good less BRB -still diarrhea no abd pain Objective - Vital Signs Date Time Temp Pulse Resp B/P (MAP) Pulse Ox O2 Delivery O2 Flow Rate FiO2 06/14/17 16:00 96.4 64 17 137/69 (91) 98 Result Diagram: 06/12/17 1310 06/12/17 1310 Objective Remarks PE alert Abd - soft, non-tender,min tympany A/P Assessment and Plan Imp: acute colitis - pt stable, monitor BRB steroids taper cont steroids, discussed biologics with pt vs surgery OK to DC home Topher Hammond MD Jun 14, 2017 17:48
--- NOTE | 2017-06-15 07:41 | HHI.DS ---
Discharge Summary Admission Date Jun 08, 2017 at 21:44 Discharge Date: Jun 15, 2017 Admitting Diagnosis Ulcerative colitis flare. rectal bleeding, abdominal pain (1) Ulcerative colitis ICD Code: K51.90 - Ulcerative colitis, unspecified, without complications Status: Acute Procedures none Brief History - From Admission 37-year-old male with a history of ulcerative colitis presents to the emergency department and evaluated there. The patient reports her approximately the past 3 weeks he has had increasing diarrhea. He reports his stools became bloody approximately 1 week ago. He follows with Dr. Hammond and has an appointment to see him tomorrow. The patient reports that today he had approximately 10 episodes of bloody stools. He reports severe epigastric abdominal pain that radiates to his back. He denies nausea/vomiting or fevers. Has a mild leukocytosis of 12.5. H&H 12.9/42.2. She was tachycardic on arrival to [facility]. Temperature 97.9, respiratory rate 20, BP 162/76, pulse ox 100% on room air. CBC/BMP: 06/12/17 1310 06/12/17 1310 Significant Findings Laboratory Tests Test 06/12/17 13:10 06/14/17 18:34 Hemoglobin 12.0 GM/DL (13.0-17.0) Hematocrit 38.2 % (39.0-51.0) Mean Corpuscular Volume 73.4 FL (80.0-100.0) Mean Corpuscular Hemoglobin 23.1 PG (27.0-34.0) Mean Corpuscular Hemoglobin Concent 31.5 % (32.0-36.0) Red Cell Distribution Width 23.5 % (11.6-17.2) Platelet Count 492 TH/MM3 (150-450) Neutrophils (%) (Auto) 78.0 % (16.0-70.0) Monocytes (%) (Auto) 12.2 % (0.0-8.0) Lymphocytes # (Auto) 0.8 TH/MM3 (1.0-4.8) Monocytes # (Auto) 1.0 TH/MM3 (0-0.9) Random Glucose 118 MG/DL (74-106) Calcium Level 8.1 MG/DL (8.5-10.1) Imaging Last Impressions Abdomen X-Ray 06/08/17 193 Signed Impressions: Service Date/Time: Thursday, June 08, 2017 19:44 - CONCLUSION: Nonspecific abdomen. Yrn Kaet MD Abdomen/Pelvis CT 06/08/17 0000 Signed Impressions: Service Date/Time: Thursday, June 08, 2017 22:03 - CONCLUSION: Tiny nonobstructing stone left lower pole kidney. Yrn Kate MD PE at Discharge awake and alert, no acute distress lungs clear abdomen- soft, nontender, good bowel sounds Pt update on day of discharge tolerating well pain controlled no bleeding Hospital Course 37 years old male with history of UC- Ulcerative colitis flare -On Solu-Medrol- taper down to 30 mg q 12- -Dr. Hammond ff- known to him-- - per patient received Humira in the past - "not better"- but only received 1 dose DVT prophylaxis with SCD. Patient up and ambulating DC home today- cleared by Dr. Hammond on po Prednisone taper OP ff up with CRS Pt Condition on Discharge: Good Discharge Disposition: Discharge Home Discharge Time: <= 30 minutes Discharge Instructions DIET: Follow Instructions for: As Tolerated, No Restrictions Speech Therapy-Diet Recommends: Regular Activities you can perform: Regular-No Restrictions Follow up Referrals: Appointment for Follow Up - 2 Weeks with Topher Hammond MD New Medications: Adalimumab 2-Pack Inj (Humira 2-Pack Inj) 40 Mg/0.8 Ml Syr 40 MG SQ Q7D for colitis, #2 KIT Prednisone (Prednisone) 50 Mg Tab 50 MG PO DAILY for colitis MDD 50 for 30 Days, #30 TAB 0 Refills Continued Medications: Mesalamine (Asacol HD) 800 Mg Tab 800 MG PO TID for Ulcerative colitis, TAB 0 Refills Swallow whole. Take on an empty stomach. Discontinued Medications: Ferrous Sulfate (Ferosul) 325 Mg Tablet 325 MG PO BID for anemia, #60 TAB 2 Refills Jama Montemayor MD Jun 15, 2017 07:41
[2017-06-16 22:26] LABS: MITOGEN MINUS NIL RESULT 6.12 IU/mL; NIL RESULT 0.01 IU/mL; QUANTIFERON TB GOLD RESULT Negative (Negative)
[2017-06-19] MEDS ORDERED: predniSONE 10 MG TAB PO SCH (09:00)
[2017-06-24] MEDS ORDERED: predniSONE 20 MG TAB PO SCH (09:00)
[2017-06-29] MEDS ORDERED: predniSONE 10 MG TAB PO SCH (09:00)
[2017-07-04] MEDS ORDERED: predniSONE 10 MG TAB PO SCH (09:00)
[2017-07-09] MEDS ORDERED: predniSONE 10 MG TAB PO SCH (09:00)
[2017-07-14] MEDS ORDERED: predniSONE 20 MG TAB PO SCH (09:00)
[2017-07-19] MEDS ORDERED: predniSONE 10 MG TAB PO SCH (09:00)
[2017-07-24] MEDS ORDERED: predniSONE 10 MG TAB PO SCH (09:00)
[2017-07-29] MEDS ORDERED: predniSONE 5 MG TAB PO SCH (09:00)
== END 2017-06-14 18:39 | disposition home or self-care (01) | DRG 387 ==
LOC: NEPE 18:23 → NEDA 21:44 → N07B 22:29
PROVIDERS: ADMIT Internal Medicine; ATTEND Internal Medicine
PROC: 0DJD8ZZ Inspection of Lower Intestinal Tract, Via Natural or Artificial Opening Endoscopic (ICD-10-PCS; principal; 2017-06-10 15:50)
DX: K51.911 Ulcerative colitis, unspecified with rectal bleeding (principal); R53.1 Weakness; R00.0 Tachycardia, unspecified; Z87.891 Personal history of nicotine dependence
CPT/HCPCS: 74018; 74176; 80048; 80053; 83690; 85014; 85018; 85025; 85610; 85652; 85730; 86480; 86850; 86920; 87493; 96361; 96374; 96375; J0744; J1170; J2270; J2405; J2920; J7030; J7120; J7512

== ENCOUNTER 2017-06-27 10:28 | Emergency (ER) | payer BC ==
[2017-06-27 11:44] LABS: AUTOMATED NEUTROPHIL # 7.1 TH/MM3 (1.8-7.7); BASOPHIL % 0.2 % (0.0-2.0); EOSINOPHIL # 0.1 TH/MM3 (0-0.4); EOSINOPHIL % 0.6 % (0.0-4.0); HEMATOCRIT 36.8 % (39.0-51.0); HEMO FLAGS DIFF FINAL; HEMOGLOBIN 11.5 GM/DL (13.0-17.0); LYMPHOCYTE # 1.4 TH/MM3 (1.0-4.8); MEAN CORPUSCULAR HEMOGLOBIN 22.8 PG (27.0-34.0); MEAN CORPUSCULAR HGB CONC 31.3 % (32.0-36.0); MEAN PLATELET VOLUME 7.6 FL (7.0-11.0); MONO % 8.5 % (0.0-8.0); MONOCYTE # 0.8 TH/MM3 (0-0.9); NEUT % 75.7 % (16.0-70.0); PLATELET COUNT 354 TH/MM3 (150-450); RED BLOOD COUNT 5.04 MIL/MM3 (4.50-5.90); RED CELL DISTRIBUTION WIDTH 21.5 % (11.6-17.2); WHITE BLOOD COUNT 9.3 TH/MM3 (4.0-11.0)
[2017-06-27] MEDS: SODIUM CHLOR 0.9% 1000 ML INJ 1,000 ML IV ×4 (11:51→15:12)
[2017-06-27] MEDS: PANTOPRAZOLE SODIUM 40 MG VIAL IVP (11:52)
[2017-06-27] MEDS: ONDANSETRON HCL 4 MG/2 ML VIAL IVP (11:52)
[2017-06-27] MEDS: MORPHINE SULFATE 2 MG/ML INJ IV PUSH (11:52)
[2017-06-27 12:04] LABS: ALBUMIN 2.7 GM/DL (3.4-5.0); ALT (GPT) 53 U/L (12-78); ANION GAP 8 MEQ/L (5-15); AST (GOT) 19 U/L (15-37); BICARBONATE 25.6 MEQ/L (21.0-32.0); BLOOD UREA NITROGEN 6 MG/DL (7-18); CALCIUM 8.3 MG/DL (8.5-10.1); CHLORIDE 105 MEQ/L (98-107); CREATININE 0.77 MG/DL (0.60-1.30); GLOMERULAR FILTRATION RATE 114 ML/MIN (>89); GLUCOSE,RANDOM 86 MG/DL (74-106); POTASSIUM 3.7 MEQ/L (3.5-5.1); SODIUM (NA) 139 MEQ/L (136-145)
[2017-06-27 12:06] LABS: ALKALINE PHOSPHATASE 61 U/L (45-117); TOTAL BILIRUBIN ADULT 0.5 MG/DL (0.2-1.0); TOTAL PROTEIN 7.1 GM/DL (6.4-8.2)
[2017-06-27 12:34] LABS: APTT (PATIENT) 25.9 SEC (24.3-30.1); INTERNATIONAL NORMALIZED RATIO 1.1 RATIO; PROTHROMBIN TIME - PATIENT 10.7 SEC (9.8-11.6)
[2017-06-27 12:38] LABS: LACTIC ACID SEPSIS PROTOCOL 1.1 mmol/L (0.4-2.0)
[2017-06-27] MEDS: IOHEXOL 350 MG/ML 10 ML VIAL (for RAD DIAG) IVCONTRAST (12:46)
[2017-06-27] MEDS: HYDROmorphone HCL PF 1 MG/ML VIAL IV PUSH (12:53)
[2017-06-27] MEDS: HYDROmorphone HCL PF 2 MG/ML VIAL IV PUSH (13:00)
[2017-06-27 13:16] LABS: C. DIFF EPI 027 PRESUMPTIVE NEGATIVE (NEGATIVE); C. DIFF TOXIN PCR NEGATIVE (NEGATIVE)
[2017-06-27 13:24] LABS: MAGNESIUM 2.2 MG/DL (1.5-2.5)
[2017-06-27 13:24] LABS: LIPASE 105 U/L (73-393)
== END 2017-06-27 15:17 | disposition home or self-care (01) ==
LOC: NEPE 10:28
DX: K51.811 Other ulcerative colitis with rectal bleeding (principal); M54.12 Radiculopathy, cervical region; Z79.899 Other long term (current) drug therapy
CPT/HCPCS: 74177; 80053; 83605; 83690; 83735; 85025; 85610; 85730; 87493; 96361; 96374; 96375; 99285-25

== ENCOUNTER 2017-06-30 17:56 | Inpatient (IN) | payer BC ==
[~2017-06-30] VITALS: Ht 188 cm; Wt 81.5 kg
[~2017-06-30 17:56] MED LIST changes: -FERR325T20 PO; +HUMI40KI SQ; +HYDR-3516 PO; -MESA1TAB2 PO; -METR-1 PO; -PRED20 PO; +PRED50 PO; -TRAM50TA PO
[2017-06-30 18:00] VITALS: BP 100/67; PULSE 130; RESP 18; TEMP 99; O2SAT 98
[2017-06-30] MEDS ORDERED: SODIUM CHLOR 0.9% 1000 ML INJ 1,000 ML IV SCH (19:04)
[2017-06-30 19:14] VITALS: O2SAT 98
[2017-06-30] MEDS ORDERED: SODIUM CHLORIDE 0.9% FLUSH 10 ML FLUSH IV FLUSH PRN (19:15)
[2017-06-30] MEDS ORDERED: MORPHINE SULFATE 4 MG/ML INJ IV PUSH ONE (19:15)
[2017-06-30] MEDS ORDERED: ONDANSETRON HCL 4 MG/2 ML VIAL IVP ONE (19:15)
[2017-06-30] MEDS ORDERED: HYDROmorphone HCL PF 1 MG/ML VIAL IV PUSH ONE (20:00)
[2017-06-30] MEDS ORDERED: HYDROmorphone HCL PF 2 MG/ML VIAL IV PUSH ONE (20:00)
[2017-06-30 20:09] LABS: AUTOMATED NEUTROPHIL # 4.8 TH/MM3 (1.8-7.7); BASOPHIL % 0.2 % (0.0-2.0); EOSINOPHIL # 0.2 TH/MM3 (0-0.4); HEMATOCRIT 35.8 % (39.0-51.0); HEMOGLOBIN 12.6 GM/DL (13.0-17.0); LYMPH % 23.7 % (9.0-44.0); LYMPHOCYTE # 1.8 TH/MM3 (1.0-4.8); MEAN CELL VOLUME 71.8 FL (80.0-100.0); MEAN CORPUSCULAR HEMOGLOBIN 25.2 PG (27.0-34.0); MEAN CORPUSCULAR HGB CONC 35.2 % (32.0-36.0); MEAN PLATELET VOLUME 7.8 FL (7.0-11.0); MONO % 12.1 % (0.0-8.0); MONOCYTE # 0.9 TH/MM3 (0-0.9); PLATELET COUNT 450 TH/MM3 (150-450); RED BLOOD COUNT 4.99 MIL/MM3 (4.50-5.90); RED CELL DISTRIBUTION WIDTH 20.6 % (11.6-17.2); WHITE BLOOD COUNT 7.7 TH/MM3 (4.0-11.0)
[2017-06-30 20:10] LABS: ALBUMIN 2.8 GM/DL (3.4-5.0); AST (GOT) 4 U/L (15-37); BICARBONATE 30.7 MEQ/L (21.0-32.0); BLOOD UREA NITROGEN 7 MG/DL (7-18); CALCIUM 8.8 MG/DL (8.5-10.1); CHLORIDE 99 MEQ/L (98-107); CREATININE 0.91 MG/DL (0.60-1.30); GLOMERULAR FILTRATION RATE 94 ML/MIN (>89); GLUCOSE,RANDOM 89 MG/DL (74-106); LIPASE 66 U/L (73-393); SODIUM (NA) 137 MEQ/L (136-145)
[2017-06-30 20:11] LABS: ALT (GPT) 23 U/L (12-78)
[2017-06-30 20:12] LABS: INTERNATIONAL NORMALIZED RATIO 1.1 RATIO; PROTHROMBIN TIME - PATIENT 10.7 SEC (9.8-11.6)
[2017-06-30 20:13] LABS: ALKALINE PHOSPHATASE 63 U/L (45-117); TOTAL BILIRUBIN ADULT 0.5 MG/DL (0.2-1.0); TOTAL PROTEIN 7.6 GM/DL (6.4-8.2)
[2017-06-30 20:33] VITALS: BP 133/73; PULSE 88; RESP 18; O2SAT 99
[2017-06-30] MEDS ORDERED: DIATRIZOATE MEGLUM/DIATRIZOATE SOD 9 ML CUP ONE (20:34)
[2017-06-30] MEDS ORDERED: IOHEXOL 350 MG/ML 10 ML VIAL (for RAD DIAG) IVCONTRAST ONE (21:51)
[2017-06-30 22:03] VITALS: BP 137/67; PULSE 77; RESP 18; O2SAT 98
--- NOTE | 2017-06-30 22:06 | RADRPT ---
EXAM DATE/TIME: 06/30/2017 21:47 [facility] COMPARISON: CT ABDOMEN & PELVIS W CONTRAST, June 27, 2017, 12:38. INDICATIONS : Periumbilical abdominal pain, weight loss. IV CONTRAST: 100 cc Omnipaque 350 (iohexol) IV ORAL CONTRAST: Prescribed oral contrast ingested. RADIATION DOSE: 6.64 CTDIvol (mGy) MEDICAL HISTORY : Ulcerative colitis. SURGICAL HISTORY : None. ENCOUNTER: Initial ACUITY: 4 - 6 days PAIN SCALE: 10/10 LOCATION: Periumbilical. TECHNIQUE: Volumetric scanning of the abdomen and pelvis was performed. Using automated exposure control and ad justment of the mA and/or kV according to patient size, radiation dose was kept as low as reasonably achievable to obtain optimal diagnostic quality images. DICOM format image data is available electro nically for review and comparison. FINDINGS: LOWER LUNGS: The visualized lower lungs are clear. LIVER: Homogeneous density without lesion. There is no dilation of the biliary tree. No calcified gallston es. SPLEEN: Normal size without lesion. PANCREAS: Within normal limits. KIDNEYS: Normal in size and shape. Unchanged 12 mm benign-appearing cyst left lower pole. There is no solid m ass, stone or hydronephrosis. ADRENAL GLANDS: Within normal limits. VASCULAR: There is no aortic aneurysm. BOWEL/MESENTERY: Moderate severity wall thickening seen of the colon from the rectum all the way to the hepatic flexur e region. Cecum and ascending colon within normal limits. Appendix is within normal limits. No free f luid. No abscess, perforation or obstruction. ABDOMINAL WALL: Within normal limits. RETROPERITONEUM: There is no lymphadenopathy. BLADDER: No wall thickening or mass. REPRODUCTIVE: Within normal limits. INGUINAL: There is no lymphadenopathy or hernia. MUSCULOSKELETAL: Within normal limits for patient age. CONCLUSION: Moderate severity uncomplicated colitis from the rectum to the hepatic flexure. Ryan Koroma MD on June 30, 2017 at 22:01 Board Certified Radiologist. This report was verified electronically.
--- NOTE | 2017-06-30 22:12 | PD ---
HPI . Abdominal pain Chief Complaint: Abdominal Pain Time Seen by Provider: 19:02 Travel History International Travel<30 days: No Contact w/Intl Traveler<30days: No Traveled to known affect area: No History of Present Illness HPI 37-year-old male history of ulcerative colitis, was referred to the ER by his colorectal surgeon secondary to an exacerbation of pain over the past week. Patient had a CT of the abdomen and pelvis performed earlier this week, results reviewed by Dr. Hammond. Patient notes 10 out of 10 pain at presentation. Notes increased rectal bleeding, but denies fever. PFSH Past Medical History Narrative Medical Past medical history reviewed Arthritis: No Asthma: No Autoimmune Disease: Yes (Ulcerative colitis) Anxiety: No Depression: No Heart Rhythm Problems: No Cancer: No Cardiovascular Problems: Yes (PERICARDITIS) High Cholesterol: No Chemotherapy: No Chest Pain: No Congestive Heart Failure: No COPD: No Cerebrovascular Accident: No Diabetes: No Diminished Hearing: No Endocrine: No Gastrointestinal Disorders: Yes (ULCERATIVE COLITIS) GERD: No Genitourinary: No Hiatal Hernia: No Immune Disorder: No Implanted Vascular Access Dvce: No Kidney Stones: No Musculoskeletal: No Neurologic: No Psychiatric: No Reproductive: No Respiratory: No Migraines: No Radiation Therapy: No Renal Failure: No Seizures: No Sickle Cell Disease: No Sleep Apnea: No Thyroid Disease: No Ulcer: Yes Influenza Vaccination: No Past Surgical History Abdominal Surgery: No AICD: No Arteriovenous Shunt: No Cardiac Surgery: No Ear Surgery: No Endocrine Surgery: No Eye Surgery: No Genitourinary Surgery: No Gynecologic Surgery: No Insulin Pump: No Joint Replacement: No Oral Surgery: No Pacemaker: No Thoracic Surgery: No Other Surgery: Yes (RIGHT ANKLE) Social History Alcohol Use: Yes (quit a few months ago ) Tobacco Use: No Substance Use: No Allergies-Medications (Allergen,Severity, Reaction): Coded Allergies: No Known Allergies (Unverified Allergy, Unknown, 06/30/17) Reported Meds & Prescriptions Reported Meds & Active Scripts Active Hydrocodone-Acetamin 5-325 mg (Hydrocodone/Acetaminophen) 5 Mg-325 Mg Tablet 1 Mg PO Q6HR PRN Humira 2-Pack Inj (Adalimumab 2-Pack Inj) 40 Mg/0.8 Ml Syr 40 Mg SQ Q7D Prednisone 50 Mg Tab 50 Mg PO DAILY MDD 50 30 Days Reported Asacol HD (Mesalamine) 800 Mg Tab 800 Mg PO TID Swallow whole. Take on an empty stomach. Narrative Medication Allergies and medications reviewed Review of Systems Except as stated in HPI: all other systems reviewed are Neg General / Constitutional: No: Fever Eyes: No: Visual changes HENT: No: Headaches Cardiovascular: No: Chest Pain or Discomfort Respiratory: No: Shortness of Breath Gastrointestinal: Positive: Nausea, Abdominal Pain, Hematochezia Genitourinary: No: Dysuria Musculoskeletal: No: Pain Skin: No Rash Neurologic: No: Weakness Psychiatric: No: Depression Endocrine: No: Polydipsia Hematologic/Lymphatic: No: Easy Bruising Physical Exam Narrative GENERAL: Awake and alert oriented 3 no acute distress SKIN: Warm and dry. Color slightly sallow, no cyanosis diaphoresis HEAD: Atraumatic. Normocephalic. EYES: Pupils equal and round. No scleral icterus. No injection or drainage. ENT: No nasal bleeding or discharge. Mucous membranes pink and moist. NECK: Trachea midline. No JVD. Supple full range of motion CARDIOVASCULAR: Regular rate and rhythm. S1-S2 no murmurs rubs or gallops RESPIRATORY: No accessory muscle use. Clear to auscultation. Breath sounds equal bilaterally. GASTROINTESTINAL: Abdomen soft, tender diffusely, no rebound or guarding, nondistended. Hepatic and splenic margins not palpable. MUSCULOSKELETAL: Extremities without clubbing, cyanosis, or edema. No obvious deformities. NEUROLOGICAL: Awake and alert. No obvious cranial nerve deficits. Motor grossly within normal limits. Five out of 5 muscle strength in the arms and legs. Normal speech. PSYCHIATRIC: Appropriate mood and affect; insight and judgment normal. Data Data Last Documented VS Vital Signs Date Time Temp Pulse Resp B/P (MAP) Pulse Ox O2 Delivery O2 Flow Rate FiO2 06/30/17 22:03 77 18 137/67 (90) 98 Room Air 06/30/17 18:00 99.0 Orders Orders Complete Blood Count With Diff (06/30/17 19:04) Comprehensive Metabolic Panel (06/30/17 19:04) Lipase (06/30/17 19:04) Lactic Acid (06/30/17 19:04) Prothrombin Time / Inr (Pt) (06/30/17 19:04) Act Partial Throm Time (Ptt) (06/30/17 19:04) Urinalysis - C+S If Indicated (06/30/17 19:04) Ct Abd/Pel W Iv Contrast(Rout) (06/30/17 19:04) Iv Access Insert/Monitor (06/30/17 19:04) Ecg Monitoring (06/30/17 19:04) Oximetry (06/30/17 19:04) Ondansetron Inj (Zofran Inj) (06/30/17 19:15) Sodium Chlor 0.9% 1000 Ml Inj (Ns 1000 M (06/30/17 19:04) Sodium Chloride 0.9% Flush (Ns Flush) (06/30/17 19:15) Morphine Inj (Morphine Inj) (06/30/17 19:15) Oral Contrast - Adult (06/30/17 19:08) Hydromorphone Pf Inj (Dilaudid Pf Inj) (06/30/17 20:00) Hydromorphone Pf Inj (Dilaudid Pf Inj) (06/30/17 20:00) Diatrizoate Liq ( Gastroview Liq) (06/30/17 20:34) Iohexol 350 Inj (Omnipaque 350 Inj) (06/30/17 21:51) Admit Order (Ed Use Only) (06/30/17 22:04) Labs Laboratory Tests Test 06/30/17 19:15 06/30/17 19:30 White Blood Count 7.7 TH/MM3 Red Blood Count 4.99 MIL/MM3 Hemoglobin 12.6 GM/DL Hematocrit 35.8 % Mean Corpuscular Volume 71.8 FL Mean Corpuscular Hemoglobin 25.2 PG Mean Corpuscular Hemoglobin Concent 35.2 % Red Cell Distribution Width 20.6 % Platelet Count 450 TH/MM3 Mean Platelet Volume 7.8 FL Neutrophils (%) (Auto) 62.0 % Lymphocytes (%) (Auto) 23.7 % Monocytes (%) (Auto) 12.1 % Eosinophils (%) (Auto) 2.0 % Basophils (%) (Auto) 0.2 % Neutrophils # (Auto) 4.8 TH/MM3 Lymphocytes # (Auto) 1.8 TH/MM3 Monocytes # (Auto) 0.9 TH/MM3 Eosinophils # (Auto) 0.2 TH/MM3 Basophils # (Auto) 0.0 TH/MM3 CBC Comment DIFF FINAL Differential Comment Prothrombin Time 10.7 SEC Prothromb Time International Ratio 1.1 RATIO Activated Partial Thromboplast Time 27.1 SEC Blood Urea Nitrogen 7 MG/DL Creatinine 0.91 MG/DL Random Glucose 89 MG/DL Total Protein 7.6 GM/DL Albumin 2.8 GM/DL Calcium Level 8.8 MG/DL Alkaline Phosphatase 63 U/L Aspartate Amino Transf (AST/SGOT) 4 U/L Alanine Aminotransferase (ALT/SGPT) 23 U/L Total Bilirubin 0.5 MG/DL Sodium Level 137 MEQ/L Potassium Level 3.6 MEQ/L Chloride Level 99 MEQ/L Carbon Dioxide Level 30.7 MEQ/L Anion Gap 7 MEQ/L Estimat Glomerular Filtration Rate 94 ML/MIN Lipase 66 U/L Lactic Acid Level 1.2 mmol/L MDM Medical Decision Making Medical Screen Exam Complete: Yes Emergency Medical Condition: Yes Medical Record Reviewed: Yes Differential Diagnosis Abdominal pain, ulcer close exacerbation, perforation, abscess Narrative Course Case discussed with Dr. Hammond shortly patient's presentation. Patient requiring multiple aliquots of pain medications noting severe exacerbation of his pain over the past several days. Patient has a significant possibility of perforation and/or abscess formation, with notation of increased bleeding of late as well. CT abdomen and pelvis performed, no perforation or abscess seen. Patient admitted to Dr. Hammond's service Diagnosis Primary Impression: Ulcerative colitis Qualified Codes: K51.311 - Ulcerative (chronic) rectosigmoiditis with rectal bleeding Admitting Information Admitting Physician Requests: Admit Benson Padron MD Jun 30, 2017 22:12
[2017-06-30] MEDS: HYDROCORTISONE SOD SUCCINATE 100 MG VIAL IV PUSH SCH (22:56)
[2017-06-30] MEDS: PANTOPRAZOLE SODIUM 40 MG VIAL IV PUSH SCH (22:56)
[2017-07-01] VITALS (7 sets, daily range): BP systolic 115–130; BP diastolic 60–71; PULSE 60–74; RESP 16–17; TEMP 96.8–98.2; O2SAT 94–97
[2017-07-01] MEDS: HYDROmorphone HCL PF 2 MG/ML VIAL IV PUSH PRN ×6 (00:51→22:11)
[2017-07-01 01:26] LABS: BILIRUBIN, URINE NEG (NEG); BLOOD, URINE NEG (NEG); GLUCOSE,URINE NEG (NEG); KETONE, URINE 40 mg/dL (NEG); MUCUS URINE MOD /lpf (OCC); NITRITE,URINE NEG (NEG); PH, URINE 6.5 (5.0-8.5); URINE COLOR YELLOW (YELLW/STRAW); URINE LEUKOCYTE ESTERASE NEG (NEG)
[2017-07-01] MEDS: HYDROCORTISONE SOD SUCCINATE 100 MG VIAL IV PUSH SCH ×3 (04:29→20:57)
--- NOTE | 2017-07-01 17:39 | HHI.PR ---
Subjective Remarks C/ R surg afebrile, VSS c/o less pain diarrhea less while NPO less bleeding Objective - Vital Signs Date Time Temp Pulse Resp B/P (MAP) Pulse Ox O2 Delivery O2 Flow Rate FiO2 07/01/17 16:00 96.8 63 16 127/68 (87) 96 06/30/17 22:03 Room Air Result Diagram: 06/30/17191406/30/171914 Objective Remarks PE alert abd - soft, mildly tender lower abd no tympany A/P Assessment and Plan Imp: more comfortable , less diarrhes adv diet cont IVF steroids discussed surgery again with pt - he wants to try Topher Lane MD Jul 01, 2017 17:39
[2017-07-01] MEDS: NS + KCL 20 MEQ INJ 1,000 ML IV SCH (18:14)
[2017-07-01] MEDS: PANTOPRAZOLE SODIUM 40 MG VIAL IV PUSH SCH (20:57)
[2017-07-02] VITALS (7 sets, daily range): BP systolic 115–129; BP diastolic 62–67; PULSE 48–72; RESP 16–21; TEMP 96.3–97.8; O2SAT 95–97
[2017-07-02] MEDS: HYDROmorphone HCL PF 2 MG/ML VIAL IV PUSH PRN ×5 (04:07→21:47)
[2017-07-02] MEDS: HYDROCORTISONE SOD SUCCINATE 100 MG VIAL IV PUSH SCH ×3 (04:08→21:46)
[2017-07-02] MEDS: NS + KCL 20 MEQ INJ 1,000 ML IV SCH ×3 (04:09→23:33)
--- NOTE | 2017-07-02 06:34 | HHI.PR ---
Subjective Remarks Severe HITESH slightly improved Objective Vital Signs Date Time Temp Pulse Resp B/P (MAP) Pulse Ox O2 Delivery O2 Flow Rate FiO2 07/02/17 00:19 96.9 61 16 115/62 (79) 96 07/01/17 20:00 97.9 60 16 115/63 (80) 96 07/01/17 16:00 96.8 63 16 127/68 (87) 96 07/01/17 12:55 96.9 71 16 127/67 (87) 95 07/01/17 12:00 97.9 74 16 130/64 (86) 96 07/01/17 08:00 98.2 63 16 120/60 (80) 97 I/O 07/01/17 07/01/17 07/01/17 07/02/17 07/02/17 07/02/17 07:00 15:00 23:00 07:00 15:00 23:00 Intake Total 870 ml 1000 ml Output Total 300 ml Balance -300 ml 870 ml 1000 ml Intake Oral 870 ml IV Total 1000 ml Output Urine Total 300 ml # Voids 1 4 1 # Bowel Movements 2 1 Result Diagram: 06/30/17191406/30/171914 Objective Remarks Abdomen soft, nondistended, mildly tender Assessment and Plan Assessment and Plan Advance diet, add ensure Judit Jacobo MD Jul 02, 2017 06:34
[2017-07-02] MEDS: PANTOPRAZOLE SODIUM 40 MG VIAL IV PUSH SCH (21:47)
[2017-07-03 00:18] VITALS: BP 120/66; PULSE 72; RESP 21; TEMP 96.7; O2SAT 95
[2017-07-03] MEDS: HYDROmorphone HCL PF 2 MG/ML VIAL IV PUSH PRN ×3 (02:19→10:17)
[2017-07-03] MEDS: HYDROCORTISONE SOD SUCCINATE 100 MG VIAL IV PUSH SCH ×3 (06:21→22:47)
[2017-07-03 08:00] VITALS: BP 117/73; PULSE 65; RESP 20; TEMP 96.9; O2SAT 96
[2017-07-03] MEDS: NS + KCL 20 MEQ INJ 1,000 ML IV SCH (10:20)
--- NOTE | 2017-07-03 11:13 | HHI.PR ---
Subjective Remarks Severe HITESH improved, would like more solid food Objective Vital Signs Date Time Temp Pulse Resp B/P (MAP) Pulse Ox O2 Delivery O2 Flow Rate FiO2 07/03/17 11:06 18 07/03/17 08:00 96.9 65 20 117/73 (88) 96 07/03/17 00:18 96.7 72 21 120/66 (84) 95 07/02/17 20:00 96.5 57 21 129/66 (87) 97 07/02/17 15:49 97.8 67 18 126/62 (83) 95 07/02/17 12:00 97.8 62 18 121/62 (81) 96 I/O 07/02/17 07/02/17 07/02/17 07/03/17 07/03/17 07/03/17 07:00 15:00 23:00 07:00 15:00 23:00 Intake Total 1000 ml 720 ml 960 ml 1400 ml 120 ml Output Total 600 ml Balance 1000 ml 720 ml 360 ml 1400 ml 120 ml Intake Oral 720 ml 960 ml 400 ml 120 ml IV Total 1000 ml 1000 ml Output Urine Total 600 ml # Voids 1 3 3 # Bowel Movements 1 2 0 Result Diagram: 06/30/17191406/30/171914 Objective Remarks Abdomen soft, nondistended, minimally tender Assessment and Plan Assessment and Plan Advance diet, add ensure change to PO pain pills Judit Jacobo MD Jul 03, 2017 11:13
[2017-07-03] MEDS ORDERED: ACETAMINOPHEN/HYDROcodone 325 MG/7.5 MG TAB PO PRN (11:15)
[2017-07-03 12:00] VITALS: BP 120/62; PULSE 68; RESP 19; TEMP 98.7; O2SAT 95
[2017-07-03] MEDS: ACETAMINOPHEN/HYDROcodone 325 MG/7.5 MG TAB PO PRN ×3 (12:29→22:47)
[2017-07-03 16:00] VITALS: BP 113/58; PULSE 54; RESP 19; TEMP 97; O2SAT 97
[2017-07-03 20:00] VITALS: BP 138/65; PULSE 55; RESP 21; TEMP 97.6; O2SAT 97
[2017-07-03] MEDS: PANTOPRAZOLE SODIUM 40 MG VIAL IV PUSH SCH (22:47)
[2017-07-03] MEDS ORDERED: ACETAMINOPHEN/HYDROcodone 325 MG/10 MG TAB PO PRN (23:45)
[2017-07-04 00:29] VITALS: BP 117/61; PULSE 51; RESP 21; TEMP 95.6; O2SAT 97
[2017-07-04] MEDS: ACETAMINOPHEN/HYDROcodone 325 MG/10 MG TAB PO PRN ×2 (04:49→10:29)
[2017-07-04] MEDS: HYDROCORTISONE SOD SUCCINATE 100 MG VIAL IV PUSH SCH (04:50)
[2017-07-04 08:00] VITALS: BP 124/72; PULSE 50; RESP 18; TEMP 96.9; O2SAT 96
[2017-07-04] MEDS: NS + KCL 20 MEQ INJ 1,000 ML IV SCH (08:48)
[2017-07-04] MEDS ORDERED: PANTOPRAZOLE SOD 40 MG DELAYED RELEASE TAB PO ONE (09:15)
[2017-07-04] MEDS ORDERED: predniSONE 20 MG TAB PO SCH (09:15)
[2017-07-04 11:50] LABS: AUTOMATED NEUTROPHIL # 4.1 TH/MM3 (1.8-7.7); BASOPHIL % 0.1 % (0.0-2.0); EOSINOPHIL % 0.2 % (0.0-4.0); HEMATOCRIT 31.6 % (39.0-51.0); HEMOGLOBIN 10.1 GM/DL (13.0-17.0); LYMPH % 11.9 % (9.0-44.0); LYMPHOCYTE # 0.6 TH/MM3 (1.0-4.8); MEAN CELL VOLUME 71.6 FL (80.0-100.0); MEAN CORPUSCULAR HGB CONC 32.1 % (32.0-36.0); MEAN PLATELET VOLUME 7.5 FL (7.0-11.0); MONO % 8.8 % (0.0-8.0); MONOCYTE # 0.5 TH/MM3 (0-0.9); PLATELET COUNT 462 TH/MM3 (150-450); RED BLOOD COUNT 4.41 MIL/MM3 (4.50-5.90); RED CELL DISTRIBUTION WIDTH 20.5 % (11.6-17.2); WHITE BLOOD COUNT 5.2 TH/MM3 (4.0-11.0)
[2017-07-04 12:00] VITALS: BP 121/69; PULSE 55; RESP 19; TEMP 97.2; O2SAT 96
[2017-07-04 12:08] LABS: BICARBONATE 31.5 MEQ/L (21.0-32.0); CALCIUM 8.1 MG/DL (8.5-10.1); CREATININE 0.52 MG/DL (0.60-1.30)
== END 2017-07-04 13:25 | disposition home or self-care (01) | DRG 387 ==
LOC: NEPE 17:56 → NEDA 22:05 → NEDH 07-01 03:09 → N07A 07-01 12:55
PROVIDERS: ADMIT Colon & Rectal Surgery; ATTEND Colon & Rectal Surgery
DX: K51.911 Ulcerative colitis, unspecified with rectal bleeding (principal); M54.12 Radiculopathy, cervical region; Z79.899 Other long term (current) drug therapy
CPT/HCPCS: 74177; 80048; 80053; 81001; 83605; 83690; 85025; 85610; 85730; 86850; 86900; 86901; 86920; 86922; 96361; 96374; 96375; C9113; J1170; J1720; J2270; J2405; J3480; J7030; J7512; Q9963; Q9967

== ENCOUNTER 2018-07-24 17:03 | Observation (INO) ==
[2018-07-24] MEDS ORDERED: Sodium Chlor 0.9% Inj 250 ML IV.SIG SCH (18:00)
--- NOTE | 2018-07-24 18:47 | P.PNCS ---
Subjective Interval history: Events since last admission reviewed tapering prednisone little bleeding Humira to be delivered tomorrow afebrile, VSS UO good Objective Objective Remarks: PE alert Abd - soft, min tender, no tympany Assessment and Plan - Plan Imp: acevedo-colitis cont predn tx PRBC for HGB < 7.0 Humira tomorrow
[2018-07-24] MEDS: predniSONE 10 MG Tablet PO SCH (20:37)
[2018-07-24] MEDS: Mesalamine 800 MG Tablet DR PO SCH (20:37)
[2018-07-25 08:36] VITALS: RESP 17
[2018-07-25] MEDS: Mesalamine 800 MG Tablet DR PO SCH (08:37)
[2018-07-25] MEDS: predniSONE 10 MG Tablet PO SCH (08:37)
[2018-07-25 09:30] LABS: Hematocrit 25.7 % (39.0-51.0); Hemoglobin 7.9 gm/dL (13.0-17.0); Mean Corpuscular Hemoglobin 19.7 pg (27.0-34.0); Mean Corpuscular Volume 64.3 fL (80.0-100.0); Mean Platelet Volume 7.4 fL (7.0-11.0); Platelet Count 427 th/mm3 (150-450); White Blood Count 9.1 th/mm3 (4.0-11.0)
[2018-07-25 09:40] LABS: Mean Corpuscular HGB Conc 30.6 % (32.0-36.0)
[2018-07-25 10:02] LABS: Albumin 2.9 g/dL (3.4-5.0); Anion Gap 7 meq/L (5-15); Aspartate Aminotransferase 7 U/L (15-37); Blood Urea Nitrogen 9 mg/dL (7-18); Calcium 8.3 mg/dL (8.5-10.1); Carbon Dioxide 28.2 meq/L (21.0-32.0); Chloride 105 meq/L (98-107); Glomerular Filtration Rate Greater Than 89 mL/min (>89); Glucose,Random 72 mg/dL (74-106); Potassium 3.9 meq/L (3.5-5.1); Sodium 140 meq/L (136-145)
[2018-07-25 10:06] LABS: Alanine Aminotransferase 30 U/L (12-78); Alkaline Phosphatase 48 U/L (45-117); Total Protein 6.4 g/dL (6.4-8.2)
[2018-07-25 10:26] LABS: Eosinophils 1 % (0-4); Lymphocytes 19 % (9-44); Monocytes 5 % (0-8)
[2018-07-25 10:27] LABS: Ovalocytes 1+; Platelet Estimate Normal (Normal); Platelet Morphology Normal (Normal)
[2018-07-25 15:44] VITALS: BP 121/63; PULSE 52; TEMP 97.9; O2SAT 99
== END 2018-07-25 19:43 | disposition home or self-care (01) ==
LOC: N07 17:03 → INTOOBSV 17:58
PROVIDERS: ADMIT Colon & Rectal Surgery; ATTEND Colon & Rectal Surgery
CPT/HCPCS: 36430; 80053; 85025; 86850; 86900; 86901; 86923; 96360; 96361; G0378; J7050; J7506; J7512; P9016